=== PATIENT | male | born 1955 | race Caucasian/White ===

== ENCOUNTER → 2016-07-05 | Outpatient (CLI) | payer OTHER ==
[~2016-07-05] MED LIST: ALKA-SELTZER AN1 CAP PO; ALLOPURINOL100 MG PO; AMLODIPINE BES2.5 MG PO; AMLODIPINE BESY10 MG PO; BLOOD PRESSURE; CLONIDINE0.1 MG PO; CLONIDINE0.2 MG PO; DOXYCYCLINE HY100 M3 PO; ECOTRIN ADULT L81 MG PO; ENALAPRIL20 MG PO; FERRATE324 MG PO; FLOMAX0.4 MG PO; HUMALOG100 U/ML SC; INSULIN PUMP; LABETALOL200 MG PO; LASIX40 MG PO; LOPRESSOR25 MG PO; NEURONTIN300 MG PO; NORVASC5 MG PO; PEGASYS180 MCG/ML MR; PHENERGAN25 M1 PO; PHOSLO667 M1 PO; PRILOSEC20 MG PO; RIBASPHERE200 M1 PO; ROFERON-A18 MILLION SC; SOMA PO; SOMA350 MG PO; Synthroid,Levo50 MCG PO; TRAMADOL HCL50 MG PO; TRAZODONE50 MG PO; VICODIN 5/500 505 MG PO; VITAMIN D50000 I3 PO; WELLBUTRIN XL300 MG PO; ZOFRAN ODT8 MG PO
[2016-07-05 10:26] LABS: BASO # 0.1 10*3/uL (0.0-0.1); BASO % 0.4 % (0.0-1.0); EOS # 0.3 10*3/uL (0.0-0.4); EOS % 2.4 % (1.0-4.0); HEMATOCRIT 45.9 % (42.0-52.0); HEMOGLOBIN 15.3 g/dl (14.0-18.0); LYMPH # 0.7 10*3/uL (1.3-4.4); LYMPH % 5.8 % (27.0-41.0); MEAN CELL VOLUME 87.1 fl (80.0-94.0); MEAN CORPUSCULAR HGB CONC 33.3 g/dl (33.0-37.0); MEAN PLATELET VOLUME 11.7 fl (9.6-12.3); MONO # 0.9 10*3/uL (0.1-1.0); MONO % 7.6 % (3.0-9.0); NEUT # 9.4 10*3/uL (2.3-7.9); NEUT % 83.4 % (47.0-73.0); PLATELET COUNT AUTOMATED 220 10*3/uL (130-400); RED BLOOD COUNT 5.27 10*6/uL (4.50-5.90); WHITE BLOOD COUNT 11.3 10*3/uL (4.8-10.8)
[2016-07-05 10:43] LABS: ALBUMIN 3.8 gm/dl (3.1-4.5); BILIRUBIN, TOTAL 0.5 mg/dl (0.2-1.0); PHOSPHOROUS 2.4 mg/dL (2.5-4.9); POTASSIUM 4.6 mmol/L (3.5-5.1); TOTAL PROTEIN 7.7 gm/dL (6.4-8.2)
== END | disposition home or self-care (01) ==
LOC: LAB 10:08
PROVIDERS: Surgery
DX: D50.9 Iron deficiency anemia, unspecified (principal); E83.40 Disorders of magnesium metabolism, unspecified; T86.10 Unspecified complication of kidney transplant; Z94.0 Kidney transplant status; Z79.899 Other long term (current) drug therapy

== ENCOUNTER → 2016-07-20 | Outpatient (CLI) | payer OTHER ==
[2016-07-20 09:32] LABS: BASO # 0.1 10*3/uL (0.0-0.1); BASO % 0.5 % (0.0-1.0); EOS # 0.4 10*3/uL (0.0-0.4); EOS % 3.5 % (1.0-4.0); HEMATOCRIT 47.7 % (42.0-52.0); HEMOGLOBIN 15.6 g/dl (14.0-18.0); LYMPH # 0.6 10*3/uL (1.3-4.4); LYMPH % 6.3 % (27.0-41.0); MEAN CELL VOLUME 89.5 fl (80.0-94.0); MEAN CORPUSCULAR HGB 29.3 pg (27.0-31.0); MEAN CORPUSCULAR HGB CONC 32.7 g/dl (33.0-37.0); MEAN PLATELET VOLUME 11.8 fl (9.6-12.3); MONO # 0.9 10*3/uL (0.1-1.0); MONO % 9.2 % (3.0-9.0); NEUT % 80.1 % (47.0-73.0); PLATELET COUNT AUTOMATED 213 10*3/uL (130-400); RED BLOOD COUNT 5.33 10*6/uL (4.50-5.90); RED CELL DISTRI WIDTH 14.7 % (0-14.5); WHITE BLOOD COUNT 9.9 10*3/uL (4.8-10.8)
[2016-07-20 09:57] LABS: BILIRUBIN, TOTAL 0.5 mg/dl (0.2-1.0); PHOSPHOROUS 2.4 mg/dL (2.5-4.9); POTASSIUM 4.6 mmol/L (3.5-5.1); TOTAL PROTEIN 8.3 gm/dL (6.4-8.2)
== END | disposition home or self-care (01) ==
LOC: LAB 09:02
PROVIDERS: Internal Medicine Nephrology
DX: D59.0 Drug-induced autoimmune hemolytic anemia (principal); E83.40 Disorders of magnesium metabolism, unspecified; T86.10 Unspecified complication of kidney transplant; Z94.0 Kidney transplant status; Z79.899 Other long term (current) drug therapy

== ENCOUNTER → 2016-08-30 | Outpatient (CLI) | payer OTHER ==
[2016-08-30 09:27] LABS: BASO # 0.1 10*3/uL (0.0-0.1); BASO % 0.7 % (0.0-1.0); EOS # 0.4 10*3/uL (0.0-0.4); EOS % 4.4 % (1.0-4.0); HEMATOCRIT 46.2 % (42.0-52.0); HEMOGLOBIN 15.1 g/dl (14.0-18.0); LYMPH % 11.5 % (27.0-41.0); MEAN CELL VOLUME 88.3 fl (80.0-94.0); MEAN CORPUSCULAR HGB 28.9 pg (27.0-31.0); MEAN CORPUSCULAR HGB CONC 32.7 g/dl (33.0-37.0); MONO # 0.8 10*3/uL (0.1-1.0); MONO % 9.2 % (3.0-9.0); NEUT # 6.4 10*3/uL (2.3-7.9); NEUT % 73.9 % (47.0-73.0); PLATELET COUNT AUTOMATED 221 10*3/uL (130-400); RED BLOOD COUNT 5.23 10*6/uL (4.50-5.90); RED CELL DISTRI WIDTH 14.7 % (0-14.5); WHITE BLOOD COUNT 8.7 10*3/uL (4.8-10.8)
[2016-08-30 09:49] LABS: MAGNESIUM 1.9 mg/dL (1.5-2.1); URIC ACID 6.6 mg/dL (3.5-7.2)
[2016-08-30 09:52] LABS: BILIRUBIN, TOTAL 0.4 mg/dl (0.2-1.0); PHOSPHOROUS 3.5 mg/dL (2.5-4.9); TOTAL PROTEIN 7.9 gm/dL (6.4-8.2)
== END | disposition home or self-care (01) ==
LOC: LAB 08:58
PROVIDERS: Surgery
DX: D59.0 Drug-induced autoimmune hemolytic anemia (principal); E83.40 Disorders of magnesium metabolism, unspecified; T86.10 Unspecified complication of kidney transplant; Z94.0 Kidney transplant status; Z79.899 Other long term (current) drug therapy

== ENCOUNTER 2016-10-22 11:04 | Inpatient (IN) | payer OTHER ==
[~2016-10-22] VITALS: Ht 172.7 cm; Wt 73.0 kg
--- NOTE | ~2016-10-22 | CON ---
[place], [place] REPORT OF CONSULTATION NAME: FENG CHEN UNIT #: [id number] ROOM: [facility] DOCTOR: EVAN MAC MD BIRTHDATE: [birth year] DOS: 10/25/2016 REASON FOR CONSULTATION: History of renal transplant, now with pulmonary edema. HISTORY OF PRESENT ILLNESS: The patient is a pleasant 61-year-old gentleman known to our service for longstanding history of end-stage renal disease secondary to diabetes and hypertension. He underwent a renal transplant in 2013 and has been off dialysis, has baseline creatinine in the mid 1, with some fluctuations based on volume status. He has treated his diabetes with an insulin pump and he continues to follow up with [facility] for his transplant care as well as need. He also has a history of hepatitis C, treated with interferon and ribavirin, which was fairly successful and his hypertension has been under fair control in general. I would not say it is actively well controlled all the time. He presented to the hospital on Tuesday after an outpatient echocardiogram had been performed. I suspect for ongoing shortness of breath issues that he had been having. This showed ejection fraction of 70% with grade 2 pseudonormal filling dynamics, but normal LV size. The left atrium was severely dilated as was the right atrium dilated. There was moderate mitral regurgitation noted and mild to moderate tricuspid regurgitation with moderate pulmonary hypertension. No other pericardial effusions were noted. These were compared to an echocardiogram done while inpatient as he had acute onset of worsening shortness of breath again overnight when moved to the ICU. He had been moved earlier in the day for hyperglycemia, essentially resulting from steroid, Solu-Medrol doses for the initial differential of COPD exacerbation versus pneumonia. His steroids have been now since discontinued. In comparing today's echo to the one on Tuesday, the inferior lateral wall appears hypokinetic with an ejection fraction decreased from 70-[address] Pedraza is consulted and the patient did have an elevated troponin level, which seems to have peaked. His pertinent history is significant for history of longstanding tobacco abuse as well as past percutaneous revascularization of PAD. He has some claudications and he has had angiograms, I believe, some balloon angioplasties at [facility]. He has not done bypass surgery; however. His chest radiograph was concerning for multifocal pneumonia versus fluid. He had some pleuritic chest pains with associated hemoptysis and patient is obviously status post kidney transplant and is maintained on immunosuppression with Prograf and CellCept. PAST MEDICAL HISTORY: As above as well as a history of neck and back surgery, fistula placements, knee surgeries. REVIEW OF SYSTEMS: As per the HPI, otherwise all negative. FAMILY HISTORY: Father . Mother is still alive. SOCIAL HISTORY: Denies any active toxic habits as above for past habits. PHYSICAL EXAMINATION: VITAL SIGNS: 141/58, pulse 76, respiratory rate 20, temperature max 98.4, pulse ox 97% on 3 liters nasal cannula. GENERAL: He is awake, alert and oriented. He is without acute distress, [place], [place] REPORT OF CONSULTATION NAME: FENG CHEN UNIT #: [id number] ROOM: [facility] DOCTOR: EVAN MAC MD BIRTHDATE: [birth year] pleasant mood and affect. Speech is clear and cogent. NECK: Supple. He has a midline scar which is fairly well healed. Acceptable range of motion. No JVD or lymphadenopathy. LUNGS: Fairly nonlabored breath sounds. There are bibasilar crackles. No audible egophony or tactile fremitus abnormalities. CARDIOVASCULAR: He has a regular rhythm. No audible rub. No palpable lift or heave. There is a soft systolic murmur at left sternal border, not appreciate any lift or heave or thrill. Abdomen is soft, nontender, nondistended. Allograft is nontender without bogginess. EXTREMITIES: Without cyanosis or edema of significance. Peripheral pulses are decreased. LABORATORY AND DIAGNOSTIC DATA: Urinalysis: Clear yellow urine 1.010, negative protein, trace blood, 21 wbc's, trace bacteria. Urine sodium 76, urine potassium 39, urine chloride 93. Urine creatinine 41. Sodium 136, potassium 4.5, chloride 107, bicarbonate 21, BUN 45, creatinine 1.70 had been up to 1.91 yesterday morning, but was improving with some fluid. Fluids are now turned off because of the issues of shortness of breath. His glucose was 532, then 491 yesterday, is improving, but still 305. Calcium is 9.1, phosphorus 3.8, albumin 3.2. Troponin I peaked at 3.33 this morning at midnight, is 2.84 now. ABG 7.25, pCO2 36, pO2 of 56 overnight. Echocardiogram as mentioned above was reviewed. Microbiology: Sputum from the 9th showed moderate gram-positive cocci in pairs, chains and clusters, few gram-negative and gram-positive rods, normal junior with the culture, some moderate yeast also noted. Blood cultures, no growth to date x 2. ASSESSMENT AND PLAN: End-stage renal disease, status post kidney transplant status, 2014. The patient has immunocompromised state and should be maintained on his immunosuppression if there is a consideration for pneumonia, which I think may be founded; however, from microbiologic standpoint, there is nothing yet identified as a single causative organism. I would consider reducing his immunosuppression by stopping his CellCept for the short acute time period. However, as he has negative cultures at this point and he is tolerating antibiotics, I would continue the current immunosuppression as he has other issues which are taking higher precedence, namely possible non-ST elevation myocardial infarction followed by Cardiology. There is a plan worse stress test in place that is fine. However, if the patient requires cardiac catheterization with intravenous contrast administration, I would recommend transferring him to [facility] where he is followed in continuity by ____ as well as other specialists in a tertiary facility. If there is not a plan for intervention, we can continue to give him periodic Lasix as needed. I just would not want to diurese him in the context of potentially requiring catheter, contrast administration, given some CKD in his kidney transplant. His baseline creatinine is in the mid ones and he is near to this baseline and estimated GFR is 41 for stage 3 chronic kidney disease of that transplanted allograft. Hypertension control is fair, but I would avoid making further adjustments. I would leave those to Cardiology at this point and from my standpoint, further doses of Lasix, perhaps 40 mg IV again may be reasonable. His electrolytes and acid base status showed an acidosis overnight, combined metabolic and respiratory. At this point, he appears well compensated. His insulin, [place], [place] REPORT OF CONSULTATION NAME: FENG CHEN UNIT #: [id number] ROOM: [facility] DOCTOR: BUBBA CROSS,EVAN Naranjo BIRTHDATE: [birth year] subcutaneous pump has been resumed for his diabetes, though those are also not perfectly well controlled. He has anemia. We recommended recheck of his CBC tomorrow and follow up his leukocytosis. Follow up cultures to completion and follow up his Prograf level, though I do think that it was a trough level and may need to be taking with a grain of salt. EVAN MAC MD CM:CONSTR:REPORT OF CONSULTATION 1500 10/25/16 2314 interface
--- NOTE | ~2016-10-22 | PR ---
[place], [place] PROGRESS NOTE NAME: FENG CHEN UNIT #: [id number] ROOM: [facility] DOCTOR: EMA STRICKLAND MD BIRTHDATE: [birth year] DOS: SUBJECTIVE: The patient was seen today at his bedside in the Intensive Care Unit on 10/27/2016. He is feeling better and no longer breathless. He denies any chest discomfort. He did undergo a pharmacologic myocardial stress test this morning. The electrocardiogram obtained just prior to the stress test did show more ST segment depression in the inferior leads as well as some ST elevation in the anterior leads. The perfusion images obtained showed an inferolateral wall myocardial infarction with dania-infarction ischemia. In addition, there was a transient left ventricular cavity dilation post-stress suggesting the presence of multivessel coronary artery disease. Happily, his ejection fraction is preserved at 59%. PHYSICAL EXAMINATION: VITAL SIGNS: Today, his pulse is 60 and regular, blood pressure is 167/55. He is afebrile. NECK: Supple. He has no jugular distention. Carotids are full. LUNGS: Do show decreased breath sounds with a few crackles at the bases. HEART: Has a regular rhythm with an S4 gallop. ABDOMEN: Benign. EXTREMITIES: Showed no edema. LABORATORY DATA: Hemoglobin today is 10.7, white count 10,200. Sodium is 138, potassium 4.4, BUN 33 and creatinine 1.4. I did discuss the patient's findings with Dr. Palma as well as with the patient himself and his family. I think that the stress test does predict a moderate to high risk for future adverse cardiac events. I think that he should be evaluated by catheterization, but this should be done where his transplant team, child care education coordinator, etc. are available along with the solar system designer they are familiar with him. I have therefore recommended that he be transferred to the [facility] for further management. I thank Dr. Palma for asking our advice regarding the patient's care. [place], [place] PROGRESS NOTE NAME: FENG CHEN UNIT #: [id number] ROOM: [facility] DOCTOR: EMA STRICKLAND MD BIRTHDATE: [birth year] EMA STRICKLAND MD CM:ODESSA [id number] EMA STRICKLAND MD 10/27/162236 interface
--- NOTE | ~2016-10-22 | CON ---
[place], [place] REPORT OF CONSULTATION [id number] UNIT #: [id number] ROOM: [facility] DOCTOR: EMA STRICKLAND MD BIRTHDATE: [birth year] DOS: 10/25/2016 REASON FOR CONSULTATION: Chest pain and elevated troponin. HISTORY OF PRESENT ILLNESS: Jay Chen is a 61-year-old man who has had insulin-dependent diabetes mellitus since age 25. He also has a history of cigarette abuse. He has had significant peripheral vascular disease and has had three percutaneous revascularization procedures on his right leg and 7 on his left done by Dr. Mejia at the [facility]. The patient was advised to have peripheral artery bypass surgery, but he has refused thus far. He does admit to claudications at fairly low levels of exertion. The patient denies any previous history of heart disease. He had a kidney transplant in May 2013 and states that he did have several stress tests prior to that all of which were reportedly normal. He has not had one since his kidney transplant, however. The patient was in his normal state of health until approximately 10/20/2016. He noticed an increase in his shortness of breath, which occurred relatively suddenly while at rest. He spoke to his primary physician, Dr. Palma, who recommended an outpatient echocardiogram. The examination was done on 10/22/2016 and showed normal left ventricular size with stage II diastolic dysfunction and moderate aortic stenosis with an estimated valve area of 1.1 cm2. The mean transaortic gradient was 27 mmHg. The patient continued to be short of breath, so he went to the Emergency Room where chest x-ray showed bibasilar pneumonia with a left pleural effusion. He was hospitalized. Had a subsequent chest x-ray showed increasing bilateral multifocal pneumonia. He was treated with antibiotics and has improved. He stated that when he was at his most short of breath, he did have pleuritic chest pains in his upper anterior chest bilaterally. This has since improved. He did have some diaphoresis and feverishness. He denied nausea or vomiting and denied syncope. PAST HISTORY: Includes, 1. Diabetes mellitus since age 25. The patient has been on insulin since that time and does have an insulin pump for sugar control. 2. End-stage renal disease, status post kidney transplant in May of 2013. Prior to that, the patient did undergo dialysis utilizing a left arm AV fistula. 3. History of right pulmonary nodule, which is being followed clinically. 4. Vascular disease, status post bilateral lower extremity percutaneous interventions by Dr. Mejia at [facility]. The patient reports 3 procedures on his right leg and 7 procedures on his left. The last of these was in 2016. 5. Long-term and ongoing cigarette abuse. The patient continues to smoke one-half pack of cigarettes a day. 6. No history of myocardial infarction or stroke. 7. The patient does have hypertension related to his renal insufficiency. 8. History of back surgery. 9. History of surgery on his left arm for shunt placement. [place], [place] REPORT OF CONSULTATION NAME: JAY CHEN UNIT #: [id number] ROOM: [facility] DOCTOR: EMA STRICKLAND MD BIRTHDATE: [birth year] 10. Status post knee surgeries bilaterally. REVIEW OF SYSTEMS: The patient denies diplopia or loss of vision. Denies fevers, chills or sweats at this time, although he did have some feverishness. Prior to admission, he denies any recent weight change. He denies nausea or vomiting. He did have dyspnea and chest pain prior to admission as noted above. He denies any bleeding from any site. He denies orthopnea or PND. He denies any recent peripheral edema. He does admit to claudications at a fairly limited distance, although he would not quantify it for me. He denies any hot, red or swollen joints. He denies any skin rashes. He denies polydipsia, polyuria or heat intolerance. The remainder of the review of systems is negative except as noted above. FAMILY HISTORY: The patient's father at age 75. His mother is alive at age 90. SOCIAL HISTORY: The patient denies any alcohol consumption or illegal drug use. He does smoke one half packs of cigarettes a day. PHYSICAL EXAMINATION: GENERAL: White-nourished white male who is awake, alert and oriented. VITAL SIGNS: Pulse is 77 and regular, blood pressure is 174/65. He is afebrile. He weighs 73 kg and has a body mass index 24.5. HEENT: Normocephalic, atraumatic. Extraocular muscles are intact. Sclerae are clear. Pupils are equal, round and reactive to light. Oral mucosa is moist. Tongue is midline. NECK: Supple. He has no jugular distention. Carotids are full, but he does have soft bilateral bruits. He has no neck or supraclavicular masses. No thyromegaly. RESPIRATORY: Respirations are unlabored at rest. He does have bibasilar crackles. He has no presacral edema or chest wall tenderness. CARDIOVASCULAR: His heart has a regular rhythm. He has a fourth heart sound. I did not hear a third heart sound. There is grade 2/6 systolic ejection murmur along the left sternal border. There are no diastolic murmurs. The second heart sound is well preserved. The PMI is not displaced. There is no precordial heave, lift or thrill. ABDOMEN: Soft and normoactive without masses, organomegaly or bruits. EXTREMITIES: Showed no edema. Peripheral pulses are absent in the feet. LABORATORY DATA: I reviewed his electrocardiogram, which showed sinus tachycardia with nonspecific inferior and lateral ST changes. There are no ST elevations. Review of the patient's troponin levels show that they were normal at the time of admission on 10/22/2016, but have subsequently risen on October 24 was 1.51, then 3.33 and now 2.84. IMPRESSIONS: 1. Elevation in troponin consistent with acute myocardial injury. Given his risk factors, it is likely that this truly does represent a non-ST elevation [place], [place] REPORT OF CONSULTATION NAME: JAY CHEN UNIT #: [id number] ROOM: [facility] DOCTOR: EMA STRICKLAND MD BIRTHDATE: [birth year] myocardial infarction. 2. End-stage renal disease, status post renal transplant. The patient does show evidence of some renal insufficiency with a BUN of 43 and creatinine of 1.66. 3. Type 2 diabetes mellitus, on insulin via pump since age 25. 4. Severe peripheral vascular disease, status post multiple percutaneous interventions, thus far, the patient has refused peripheral bypass surgery. 5. Bilateral carotid bruits. 6. Ongoing cigarette abuse. PLAN: For now, we will repeat a limited echo just for wall motion. His pneumonia will be treated appropriately. We will monitor and manage his medications to improve blood pressure control. Once his pneumonia has been stabilized, we will plan on a risk stratifying pharmacologic stress test. We thank Dr. Palma for asking our advice regarding the patient's care. EMA STRICKLAND MD CM:CONSTR:REPORT OF CONSULTATION 0936 10/25/16 1055 interface
--- NOTE | ~2016-10-22 | CON ---
[place], [place] REPORT OF CONSULTATION NAME: FENG CHEN UNIT #: [id number] ROOM: [facility] DOCTOR: KARTIK RODRÍGUEZ MD BIRTHDATE: [birth year] DOS: 10/24/2016 HISTORY OF PRESENT ILLNESS: This 61-year-old male developed sudden onset of severe shortness of breath with vomiting. He had been initially admitted with bilateral pneumonia and has a history of end-stage renal disease, status post renal transplant and diabetes. Yesterday, ____ was discontinued because of uncontrolled blood sugars. Today, he has had episodic shortness of breath, but this evening, he developed severe shortness of breath with coughing and vomiting. It appeared that he spit up some blood-stained sputum. I was asked to see the patient in an emergency because of acute respiratory distress. PHYSICAL EXAMINATION: VITAL SIGNS: His blood pressure is in the 130/80 range, heart rate 126 and respirations 28 a minute. He had some retractions. He was in the tripod position when I arrived and was having severe difficulty breathing. On examination, severe distress because of shortness of breath. NECK: Veins not distended. CHEST: Symmetrical intercostal recession, bilateral rales with diffuse wheezing on expiration. HEART: Tachycardic. No murmurs or gallops appreciated. ABDOMEN: Flat, soft, nontender, no masses, no organomegaly. EXTREMITIES: Significant wasting peripherally, but no edema. Pulses 0-1 bilaterally. SKIN: Slightly moist. Reviewing the rhythm strip, sinus tachycardia and at the time that I saw him, he was using a Venturi type mask for breathing. I recommended 2 separate DuoNeb aerosol treatments, intravenous ____, a stat chest x-ray and stat chest x-ray showed bilateral infiltrates consistent with acute pulmonary edema. He was in fact very anxious. I was going to give him Ativan IV, but the patient to just had Xanax and Percocet for complaints of anxiety and generalized pain. He denied any chest pain. Initially, chest x-ray was available. I was able to discuss the patient's situation with Dr. Palma, his primary physician, and he agreed that I could give the patient Lasix, nitroglycerin infusion and I recommended BiPAP. BiPAP will be started at 12/6 and titrated accordingly. I did see the blood gases which showed mild hypoxemia and hypercapnia. EKG is pending. Cardiac enzymes are pending. Condition is critical. Dr. Palma is aware and recommended that I consult with Nephrology. The order for consult with Nephrology has been placed. The patient will get morphine 2 mg as necessary. He does have a previous order for that and nitroglycerin started at 5 mcg and will be increased if necessary. He was given Lasix 40 mg IV and did appear to be slightly improved. I will evaluate the patient again in 30 minutes. [place], [place] REPORT OF CONSULTATION NAME: FENG CHEN UNIT #: [id number] ROOM: [facility] DOCTOR: KARTIK RODRÍGUEZ MD BIRTHDATE: [birth year] KARTIK RODRÍGUEZ MD CM:CONSTR:REPORT OF CONSULTATION 32 10/25/16 1619 interface
--- NOTE | ~2016-10-22 | PR ---
[place], [place] PROGRESS NOTE NAME: [id number] UNIT #: [id number] ROOM: [facility] DOCTOR: SHERICE BONE MD BIRTHDATE: [birth year] DOS: 10/24/2016 SUBJECTIVE: The patient has a history of renal transplant with chronic renal failure with pneumonia, had developed very high blood sugar yesterday in the 500s and needed to be transferred to the ICU to put on insulin drip. We had to discontinue his corticoids which we were using for shortness of breath and being observed very carefully in the unit. He has past history of bilateral pneumonia, chest pain, elevated BNP, elevated CK-MB, hypertension, hyponatremia and lymphopenia. The patient is feeling somewhat better today. OBJECTIVE: VITAL SIGNS: His blood pressure is 166/62, pulse is 80, respirations 14, temperature 98. CHEST: Having bilateral rhonchi with crepitation. HEART: Regular. ABDOMEN: Soft. No neurological deficit observed. His potassium level is 4.4, which is normal. Glucose is 532, it is still high and hemoglobin A1c 7.8. SHERICE BONE MD CM:PNTRANS [id number] SHERICE BONE MD 10/25/16 0449 interface
[2016-10-22 11:10] VITALS: BP 158/49
[2016-10-22 11:42] LABS: BASO # 0.1 10*3/uL (0.0-0.1); BASO % 0.4 % (0.0-1.0); EOS # 0.4 10*3/uL (0.0-0.4); EOS % 2.4 % (1.0-4.0); HEMATOCRIT 33.9 % (42.0-52.0); HEMOGLOBIN 11.3 g/dl (14.0-18.0); LYMPH # 0.6 10*3/uL (1.3-4.4); LYMPH % 3.9 % (27.0-41.0); MEAN CELL VOLUME 86.3 fl (80.0-94.0); MEAN CORPUSCULAR HGB 28.8 pg (27.0-31.0); MEAN CORPUSCULAR HGB CONC 33.3 g/dl (33.0-37.0); MEAN PLATELET VOLUME 11.7 fl (9.6-12.3); MONO % 6.5 % (3.0-9.0); NEUT # 12.8 10*3/uL (2.3-7.9); NEUT % 86.2 % (47.0-73.0); PLATELET COUNT AUTOMATED 170 10*3/uL (130-400); RED BLOOD COUNT 3.93 10*6/uL (4.50-5.90); RED CELL DISTRI WIDTH 14.5 % (0-14.5); WHITE BLOOD COUNT 14.8 10*3/uL (4.8-10.8)
[2016-10-22 11:50] LABS: ACT PARTIAL THROMBO TIME 27.2 SECONDS (20.8-31.5)
[2016-10-22 11:57] LABS: ALBUMIN 3.7 gm/dl (3.1-4.5); CKMB 3.7 ng/ml (0.5-3.6); CREATININE 1.71 mg/dL (0.70-1.30); MAGNESIUM 1.9 mg/dL (1.5-2.1); POTASSIUM 4.8 mmol/L (3.5-5.1); TOTAL PROTEIN 7.7 gm/dL (6.4-8.2); TROPONIN I 0.019 ng/ml (<0.045)
[2016-10-22 12:18] VITALS: BP 148/66
--- NOTE | 2016-10-22 12:31 | NUR ---
SALINE INFUSING AT TIME OF ADMISSION.
--- NOTE | 2016-10-22 13:20 | NUR ---
AWAITING RETURN CALL FROM 5E TO PROVIDE ADMISSION REPORT.
--- NOTE | 2016-10-22 13:50 | NUR ---
NURSE REPORT TO 5E, ADMISSION IN PROGRESS.
--- NOTE | 2016-10-22 14:07 | NUR ---
A 61, admitted to , under the services of ALOK Calixto MD with a diagnosis of PNEUMONIA. Chief complaint is WORSENING SOB. Patient arrived via bed from ER. Monitor applied. Initial assessment completed. Vital signs taken and recorded. AOLK CALIXTO MD notified of admission to the unit. Orders received. See assessment for past medical history, medications and allergies. Patient and/or family oriented to unit. [facility] visitation policy reviewed. Clothing/patient valuable form completed. LAKIA RICHARDSON
[2016-10-22 14:50] LABS: CKMB 3.3 ng/ml (0.5-3.6); CPK 142 U/L (39-308)
[2016-10-22 14:51] LABS: TROPONIN I < 0.015 ng/ml (<0.045)
[2016-10-22 16:00] VITALS: BP 169/52
[2016-10-22] MEDS ORDERED: PROGRAF5 MG PO ×2 (16:07)
[2016-10-22] MEDS ORDERED: CELLCEPT500 MG PO (16:08)
[2016-10-22] MEDS ORDERED: ASPIRIN ADULT L81 M2 PO (16:10)
[2016-10-22] MEDS ORDERED: VITAMIN D5000 UNI1 PO (16:11)
[2016-10-22] MEDS ORDERED: PLAVIX75 M1 PO (16:11)
[2016-10-22] MEDS ORDERED: PERCOCET 5-3251 EACH PO (16:12)
--- NOTE | 2016-10-22 16:13 | NUR ---
MED REC UP TO DATE PER PATIENT LIST.
--- NOTE | 2016-10-22 16:49 | NUR ---
DR AKHTAR NOTIFIED OF CONSULT VIA ANSWERING SERVICE.
[2016-10-22 17:50] LABS: CKMB 2.8 ng/ml (0.5-3.6); CPK 137 U/L (39-308); TROPONIN I < 0.015 ng/ml (<0.045)
[2016-10-23] VITALS (8 sets, daily range): BP systolic 151–177; BP diastolic 54–62
--- NOTE | 2016-10-23 01:46 | NUR ---
PATIENT MEDICATED WITH RESTORIL AND NORCO PER PRN ORDER AND PATIENT REQUEST FOR C/O INABILITY TO SLEEP AND NECK/LEG DISCOMFORT. RATED PAIN A 5/10 WITH 10 BEING THE WORST. SEE EMAR. REINFORCED USE OF CALL LIGHT.
[2016-10-23 06:18] LABS: HEMATOCRIT 32.4 % (42.0-52.0); HEMOGLOBIN 10.7 g/dl (14.0-18.0); MEAN CELL VOLUME 86.2 fl (80.0-94.0); MEAN CORPUSCULAR HGB 28.5 pg (27.0-31.0); PLATELET COUNT AUTOMATED 156 10*3/uL (130-400); RED BLOOD COUNT 3.76 10*6/uL (4.50-5.90); RED CELL DISTRI WIDTH 14.6 % (0-14.5); WHITE BLOOD COUNT 17.6 10*3/uL (4.8-10.8)
[2016-10-23 06:38] LABS: ALBUMIN 3.4 gm/dl (3.1-4.5); CREATININE 1.62 mg/dL (0.70-1.30); MAGNESIUM 2.1 mg/dL (1.5-2.1); PHOSPHOROUS 2.7 mg/dL (2.5-4.9); POTASSIUM 4.6 mmol/L (3.5-5.1); TOTAL PROTEIN 7.4 gm/dL (6.4-8.2)
[2016-10-23 06:43] LABS: THYROID STIM HORMONE (HS) 0.724 uIU/ml (0.358-4.75)
[2016-10-23 06:54] LABS: BURR CELLS MODERATE; OVALOCYTES FEW; PLATELET SUFFICIENCY NORMAL (NORMAL); TOTAL CELLS COUNTED 100 #CELLS
[2016-10-23 06:57] LABS: INTERNATIONAL NORM RATIO 1.1 (2.0-3.5)
--- NOTE | 2016-10-23 07:30 | NUR ---
DR BONE IN TO SEE PT.
[2016-10-23 08:01] LABS: VITAMIN D, 25-HYDROXY 37.9 ng/mL (30-100)
--- NOTE | 2016-10-23 08:09 | NUR ---
PT EXTREMELY UPSET & AGITATED BC HIS BS ACCORDING TO HIS INSULIN PUMP IS CLOSE TO 500 & I DO NOT HAVE HIS INSULIN FROM [facility] THAT HE BROUGHT IN. CALLED LANE IN PHARMACY WHO STATES PTS INSULIN IS IN PHARMACY & CANNOT RELEASE IT UNTIL ORDER FOR PUMP IS OBTAINED. PT IS ANGRY & VOICES MUCH DISSATISFACTION. WILL CALL DR & GET ORDER TO USE INSULIN PUMP. SEE SHIFT ASSESSMENT.
--- NOTE | 2016-10-23 09:01 | NUR ---
DISCUSSED AT LENGTH WITH PT HIS AIC & NECESSARY DIETARY CHANGES. PT IS AGGREVATED & STATES "DO NOT CHANGE MY DIET, I HAVE BEEN TAKING CARE OF THIS BY MYSELF FOR YEARS"
[2016-10-23] MEDS ORDERED: BACTRIM 400-801 EACH PO (09:22)
--- NOTE | 2016-10-23 09:34 | NUR ---
PT GIVEN PO XANAX FOR INCREASED ANXIETY ORDERED PER REQUEST. SEE EMAR.
--- NOTE | 2016-10-23 09:41 | NUR ---
DISCUSSED S/S OF HYPOGLYCEMIA, PT VOICES UNDERSTANDING. LANE FROM PHARMACY IN TO SPEAK WITH PT REGARDING USE OF INSULIN PUMP.
--- NOTE | 2016-10-23 11:00 | NUR ---
PT STATES "FEELING MORE RELAXED, LESS ANXIOUS" WILL CONTINUE TO MONITOR.
--- NOTE | 2016-10-23 12:18 | NUR ---
ALL DOCUMENTED BLOOD SUGAR RESULTS ARE FROM PTS INSULIN PUMP & PT COVERS HIMSELF ACCORDINGLY.
--- NOTE | 2016-10-23 15:00 | NUR ---
MEDICATED PO ORDERED PER PT REQUEST WITH NORCO FOR C/O TEMPORAL TATUM. SEE EMAR. PT RATES PAIN 09/23.
--- NOTE | 2016-10-23 15:13 | NUR ---
SPOKE WITH PT & HIS MAY AT LENGTH REGARDING CONTINUED HIGH BLOOD SUGAR RESULTS. THIS RN'S CONCERN IS THE PROBALE ISSUE OF HAVING TO PUT PT ON INSULIN GTT BUT I EXPLAINED TO PT THAT HE CAN NOT SELF ADMINISTER INSULIN VIA INSULIN PUMP IF THIS HAPPENS. PT BECOMES DEFENSIVE STATING HE KNOWS HIS OWN BODY. SPOKE WIRAVI AVENDAÑO, SHIFT DIRECTOR REGRADING MY CONCERNS.
--- NOTE | 2016-10-23 15:26 | NUR ---
MEDICATED PO ORDERED PER PT REQUEST WITH XANAX FOR C/O INCREASED ANXIETY.
--- NOTE | 2016-10-23 15:30 | NUR ---
PT STATES MEDICATION EFFECTIVE IN ALLEVIATING TATUM. WILL CONTINUE TO MONITOR.
--- NOTE | 2016-10-23 15:39 | NUR ---
SPOKE WITH DR BONE REGARDING INCREASED BLOOD SUGAR RESULTS THROUGHOUT THE DAY. ORDERS TO TRANSFER TO ICU FOR INSULIN GTT. PT AGREEABLE, LEFT MESSAGE ON May CELL PHONE.
--- NOTE | 2016-10-23 15:59 | NUR ---
REPORT TO KAYLIE Hussein RN IN ICU.
--- NOTE | 2016-10-23 16:04 | NUR ---
[facility] . stable on arrival .
--- NOTE | 2016-10-23 16:19 | NUR ---
SPUTUM SPECIMEN SENT TO LAB. PATIENT IS WILLING TO DISCONNECT HIS INSULIN PUMP ONCE THE INSULIN DRIP IS STARTED. DISCUSSED THAT THE LAB IS COMING TO DRAW LABS TO VERIFY HIS GLUCOSE LEVEL PRIOR TO STARTING THE DRIP. PATIENT VOICED UNDERSTANDING. DR AKHTAR PAGED TO INFORM HER OF THE TRANSFER & TO MAKE SURE SHE KNOWS THAT DR BOEN IS COVERING FOR DR GONZALES.
--- NOTE | 2016-10-23 17:25 | NUR ---
GLUCOSE WAS CRITICAL HIGH ON OUR MONITOR - PATIENT REFUSED NEEDLE STICK THIS TIME AND CHECKED IT WITH HIS GLUCOMETER WHICH READ 583. DRIP INCREASED TO [address] BONE CALLED AND TOLD WHAT THE LEVELS WERE AND WHERE THE DRIP WAS STARTED. HE AGREED WITH THE HIGHER RATE TO START. TOLD ABOUT THE PATIENT CHECKING THE SUGAR WITH HIS OWN AFTER CRITICAL HIGH AND HE WAS OK WITH THIS. TOLD THAT THE PATIENT WANTED AN ADDITIONAL SQ DOSE. PER DR BONE INCREASE THE DRIP TO 15 UNITS/HR & TO GIVE 20 UNITS SQ INSULIN. RECHECK LEVEL IN 1 HOUR.
--- NOTE | 2016-10-23 17:58 | NUR ---
SQ INSULIN WAS TAKEN TO THE ROOM AND THE PATIENT GAVE IT TO HIMSELF. INSULIN PUMP IS IN A BIO BAG & ON THE PATIENT'S TABLE - DISCUSSED WITH THE PATIENT THAT HE CANNOT GIVE HIMSELF ANY EXTRA INSULIN FROM HIS PUMP. VERY IMPORTANT THAT WE KNOW EXACTLY HOW MUCH IS BEING GIVEN &WE DO NOT WANT TO DROP IT TOO QUICKLY. DINNER ORDERED AND PT VOICED UNDERSTANDING & WILLINGNESS TO CO-OPERATE.
--- NOTE | 2016-10-23 21:00 | NUR ---
PATIENT STATED HIS MED REQ WAS NOT CORRECT. BUT WAS UNABLE TO TELL ME THE OTHER NAMES OF THE MEDS HE WASNT GETTING.
--- NOTE | 2016-10-23 21:45 | NUR ---
PATIENTS BS IS 125, PATIENT DEMANDED I TURN OFF INSULIN DRIP, AND GET HIM A SNACK.
[2016-10-24] VITALS (15 sets, daily range): BP systolic 136–228; BP diastolic 52–92
--- NOTE | 2016-10-24 00:52 | NUR ---
PATIENT STATED HE WANTED A SLEEPING PILL, RESTORIL WAS GIVEN. WILL REASSESS.
--- NOTE | 2016-10-24 00:54 | NUR ---
PATIENT STATED IT WAS TIME FOR HIS PAIN PILL. NORCO WAS GIVEN. WILL REASSESS.
--- NOTE | 2016-10-24 00:56 | NUR ---
PATIENT DEMANDED HE PUT BACK ON INSULIN PUMP. AND THAT I CHECK HIS BS AT 3AM.
--- NOTE | 2016-10-24 03:24 | NUR ---
PATIENT CALLED OUT, STATED HE HASNT SLEPT, FEELING ANXIOUS AND SHORT OF BREATH. CHECKED BS 438, INSULIN DRIP RESTARTED. INSULIN PUMP OFF. PLACED O2, CALLED FOR BREATHING TX, AND GAVE PATIENT A XANAX. WILL CONTINUE TO MONITOR.
--- NOTE | 2016-10-24 04:25 | NUR ---
PATIENT STATED HIS SHORTNESS OF BREATH HAS IMPROVED. AND THAT THE XANAX IS HELPING.
[2016-10-24] MEDS ORDERED: CLONIDINE0.3 MG PO (07:26)
[2016-10-24 07:29] LABS: CREATININE 1.91 mg/dL (0.70-1.30); POTASSIUM 4.4 mmol/L (3.5-5.1)
--- NOTE | 2016-10-24 07:30 | NUR ---
MED REC UPDATED & MED ADDED THAT WAS SKIPPED. ORDER TO RESTART MISSING MED OBTAINED
--- NOTE | 2016-10-24 10:00 | NUR ---
RESTING WITH EYES CLOSED - BANDANA OVER EYES - INSULIN SRIP INFUSING
--- NOTE | 2016-10-24 10:50 | NUR ---
PERCOCET & XANAX GIVEN FOR GENERALIZED DISCOMFORT. BLOOD GLUCOSE REMAIN STEADY <200. INSULIN DRIP IS NOW AT 4 UNITS/HR
[2016-10-24 13:06] LABS: CREATININE 1.66 mg/dL (0.70-1.30); POTASSIUM 4.8 mmol/L (3.5-5.1)
--- NOTE | 2016-10-24 16:30 | NUR ---
PT CALLED NURSE INTO THE ROOM REQUESTING THE SUGAR BE CHECKED. HE WANTS US TO CHECK CONCERNED THAT HIS IS NOT CALIBRated correctly now. Critical high so reflux ordered.
--- NOTE | 2016-10-24 19:22 | NUR ---
Shift chart check completed.24 HR chart check completed.
[2016-10-24 20:18] LABS: ABG BASE EXCESS -10.8 mmol/L (-2.0-2.0); ABG HCO3 15.4 mmol/l (22-26); ABG O2 SATURATION 83.2 % (95-97); ARTERIAL BLOOD GAS PCO2 36.3 mmHg (35-45); ARTERIAL BLOOD GAS PH 7.249 (7.35-7.45); ARTERIAL BLOOD GAS PO2 55.8 mmHg (80-90)
--- NOTE | 2016-10-24 20:30 | NUR ---
AT SHIFT CHANGE PATIENT WAS SITTING AT THE SIDE OF THE BED. RESPIRATORY THERAPY CAME TO ME AND SAID PT WAS ANXIOUS AND HAVING A HARD TIME BREATHING. WHEN I ENTERED THE ROOM PT WAS EXPECTORATING PINK FROTHY SPUTUM. I ATTEMPTED TO GIVE HIM THE PERCOCET AND XANAX THAT HE HAD WANTED BEFORE MY SHIFT BUT HE COULDN'T CATCH HIS BREATH ENOUGH TO TAKE THEM. A RAPID RESPONSE WAS CALLED AND PT WAS GIVEN. ABG'S WERE DONE. PT GIVEN ZOFRAN, MORPHINE AND LASIX DURING THE RAPID RESPONSE. STAT CXR WAS DONE. DR CUEVAS SPOKE WITH DR GONZALES ABOUT THE PT. SEE ALL APPROPRIATE INTERVENTIONS.
--- NOTE | 2016-10-24 21:02 | NUR ---
[facility] ANSWERING SERVICE NOTIFIED OF CONSULTATION.
--- NOTE | 2016-10-24 21:10 | NUR ---
DR KIM CALLED BACK, UPDATED ON PT'S CONDITION. ORDERS RECEIVED.
--- NOTE | 2016-10-24 21:10 | NUR ---
DR KIM WAS MADE AWARE OF TROPONIN LEVEL WHEN I SPOKE WITH HIM ABOUT THE CONSULT.
--- NOTE | 2016-10-24 21:19 | NUR ---
[facility] NOTIFIED OF CONSULTATION. PT'S HAS ARRIVED AND UPDATED ON PT'S CONDITION. PT IS BREATHING EASIER, ON BIPAP AT THIS TIME. NITROGLYCERINE DRIP AT 5MCG/MIN. HAS VOIDED 250ML OF URINE SINCE THE EARLIER LASIX AND MORPHINE. HE WAS ON THE COMMODE FOR A BM ALSO.
--- NOTE | 2016-10-24 23:32 | NUR ---
FIO2 TITRATED BY RESPIRATORY TO 50%. HE'S RESTING WITH HIS EYES CLOSED AT LONG PERIODS. HR IN THE 70'S. HE'S DIURESED >1000 ML SINCE THE EARLIER LASIX.
[2016-10-25] VITALS (13 sets, daily range): BP systolic 137–174; BP diastolic 50–65
--- NOTE | 2016-10-25 00:44 | NUR ---
DR KIM NOTIFIED OF CRITICAL VALUE TROPONIN 3.33. UPDATED HIM ON PT CONDITION. NO NEW ORDERS.
--- NOTE | 2016-10-25 03:43 | NUR ---
PT HAS BEEN SLEEPING AT LONG INTERVALS. NO DYSRHYTHMIAS. HAS BEEN UP TO BSC. FIO2 HAS BEEN TITRATED DOWN TO 40%.
--- NOTE | 2016-10-25 06:11 | NUR ---
PT AWAKE FOR LABS, AND MEDS. BIPAP OFF FOR DRINK OF WATER. NITRO DRIP CONTINUES AT 10MCG/MIN. BIPAP 12/6 AND 40%FIO2. DENIES DISCOMFORT.
--- NOTE | 2016-10-25 06:32 | NUR ---
TROPONIN 2.84. THIS IS TRENDING DOWN AND WHEN I HAD NOTIFIED DR KIM OF HIS EARLIER TROPONIN HE TOLD ME NOT TO CALL HIM WITH THIS TROPONIN IF IT WAS ELEVATED, UNLESS THE PATIENT HAD ANOTHER CHANGE IN HIS CONDITION.
--- NOTE | 2016-10-25 08:30 | NUR ---
Respiratory Therapy Director in to talk to patient. Patient states lives at HOME [address] with HIS . There are 0 steps in the home. Physician: DR GONZALES Pharmacy: [facility] Home health services: NONE Patient's level of ADLs: MINIMAL ASSIST Patient has working utilities: YES DME: OCC CANE, INSULIN PUMP Follow-up physician's appointment after d/c: PREFERS TO MAKE HIS OWN APPT Does patient want to access PORTAL?: Discharge plan HOME. CUATE WADDELL
--- NOTE | 2016-10-25 09:00 | NUR ---
DR STRICKLAND IN TO SEE PT. UPDATED HIM ON PT'S CONDITIO AND PLAN OF CARE. DR STRICKLAND SPOKE TO PT AT LENGTH R/T HIS HAVING AN TN LAST NIGHT AND PLAN OF CARE REGARDING TN. PT'S QUESTIONS ANSWERED.
--- NOTE | 2016-10-25 09:15 | NUR ---
DR MAC CALLED IN REGARDING PT. NEW ORDERS RECEIVED.
--- NOTE | 2016-10-25 09:20 | NUR ---
MEDICATED PT PER PRN ORDER WITH XANAX FOR C/O ANXIETY AND PERCOCET FOR C/O "GENERALIZED PAIN THAT RATES A 6 ON 1-10 PAIN SCALE.
--- NOTE | 2016-10-25 09:55 | NUR ---
PT RESTING. EARLIER PERCOCET AND XANAX EFFECTIVE.
--- NOTE | 2016-10-25 10:00 | NUR ---
NITRO GTT HAS BEEN TITRATED OFF PER ORDER.
[2016-10-25 10:10] LABS: ALBUMIN 3.2 gm/dl (3.1-4.5); CREATININE 1.7 mg/dL (0.70-1.30); PHOSPHOROUS 3.8 mg/dL (2.5-4.9); POTASSIUM 4.5 mmol/L (3.5-5.1)
[2016-10-25 10:24] LABS: BILIRUBIN NEGATIVE (NEGATIVE); BLOOD TRACE-INTACT (NEGATIVE); CLARITY CLEAR (CLEAR); COLOR YELLOW (YELLOW); GLUCOSE 1+ (NEGATIVE); KETONE NEGATIVE (NEGATIVE); LEUKO ESTERASE TRACE (NEGATIVE); NITRITE NEGATIVE (NEGATIVE); PH 5.5 (5.0-9.0); UROBILINOGEN 0.2 E.U./dl (0.2-1.0)
[2016-10-25 10:36] LABS: WBC 21-30 wbc/hpf (0-5)
[2016-10-25 10:37] LABS: BACTERIA TRACE
--- NOTE | 2016-10-25 12:20 | NUR ---
DR BRIONES IN TO SEE PT. UPDATED HIM ON PT'S PLAN OF CARE.
--- NOTE | 2016-10-25 13:22 | NUR ---
PT'S BEDGLU >450. PT REFUSED 2ND STICK R/T HE USED HIS OWN GLUCOMETER AND IT READ 476. HIS INSULIN PUMP WILL GIVE HIM 11 UNITS OF INSULIN. STAT REFLEX ORDERED.
[2016-10-25 14:11] LABS: LEGIONELLA URINARY ANTIGEN Negative (Negative)
--- NOTE | 2016-10-25 14:40 | NUR ---
DR MAC IN TO SEE PT. NEW ORDERS RECEIVED.
--- NOTE | 2016-10-25 15:00 | NUR ---
NOTIFIED PT OF REFLEX RESULT OF 418. HE STATED HE NEEDS AN EXTRA SHOT OF INSULIN TO COVER THE GLUCOSE LEVEL. HIS PUMP HAD ALREADY GIVEN HIM 11 UNITS FOR THE 476 RESULT THAT THE PT HAD TAKEN ON HIS OWN GLUCOMETER AFTER MY GLUCOMETER READ TOO HIGH. I SPOKE WITH DR Francine ARAYA WHO IS COVERING FOR DR GONZALES AND UPDATED HIM ON THE GLUCOSE RESULTS AND PREVIOUS INTERVENTIONS. DR Francine ARAYA ORDERED PT COULD GIVE HIS OWN INJECTION OF HUMULIN R. PT GAVE HIMSELF 20 UNITS OF HUMULIN R INSULIN. WILL RECHECK GLUCOSE IN 1 HOUR.
--- NOTE | 2016-10-25 18:05 | NUR ---
MEDICATED PT PER PRN ORDER WITH XANAX FOR C/O ANXIETY AND PERCOCET FOR C/O GENERALIZED PAIN THAT RATES A 6 ON PAIN SCALE 1-10.
--- NOTE | 2016-10-25 19:00 | NUR ---
PT STATES RELIEF OF EARLIER AXIETY AND PAIN WITH EARLIER PRN MEDS.
--- NOTE | 2016-10-25 21:47 | NUR ---
CAPILLARY BLOOD SUGAR 150. NO COVERAGE NEEDED PER PATIENT.
--- NOTE | 2016-10-25 22:14 | NUR ---
24 HR chart check completed.
--- NOTE | 2016-10-25 23:53 | NUR ---
pt refused to wear bipap at this time
[2016-10-26] VITALS: BP 133/73
[2016-10-26 04:00] VITALS: BP 160/49
[2016-10-26 05:51] LABS: ALBUMIN 2.9 gm/dl (3.1-4.5); CREATININE 1.51 mg/dL (0.70-1.30); PHOSPHOROUS 3.2 mg/dL (2.5-4.9); POTASSIUM 4.1 mmol/L (3.5-5.1); TOTAL PROTEIN 6.5 gm/dL (6.4-8.2)
[2016-10-26 05:57] LABS: BASO % 0.1 % (0.0-1.0); EOS % 0.2 % (1.0-4.0); HEMATOCRIT 30.9 % (42.0-52.0); HEMOGLOBIN 10.3 g/dl (14.0-18.0); LYMPH # 0.7 10*3/uL (1.3-4.4); LYMPH % 4.7 % (27.0-41.0); MEAN CELL VOLUME 85.8 fl (80.0-94.0); MEAN CORPUSCULAR HGB 28.6 pg (27.0-31.0); MEAN CORPUSCULAR HGB CONC 33.3 g/dl (33.0-37.0); MEAN PLATELET VOLUME 12.6 fl (9.6-12.3); MONO % 7.2 % (3.0-9.0); NEUT # 12.5 10*3/uL (2.3-7.9); NEUT % 87.1 % (47.0-73.0); PLATELET COUNT AUTOMATED 172 10*3/uL (130-400); RED CELL DISTRI WIDTH 14.7 % (0-14.5); WHITE BLOOD COUNT 14.4 10*3/uL (4.8-10.8)
[2016-10-26 08:00] VITALS: BP 172/61
--- NOTE | 2016-10-26 09:00 | NUR ---
DISCUSSED HOME MEDS WITH PT.
--- NOTE | 2016-10-26 09:00 | NUR ---
DR CAST IN TO SEE PT. NEW ORDERS RECEIVED.
--- NOTE | 2016-10-26 09:29 | NUR ---
MEDICATED PT PER PRN ORDER WITH CEPACOL FOR C/O SORE THROAT.
--- NOTE | 2016-10-26 09:49 | NUR ---
MEDICATED PT PER PRN ORDER WITH PERCOCET FOR C/O "GENERALIZED" PAIN THAT RATES A 6 ON 1-10 PAIN SCALE. MEDICATED PT WITH XANAX PER PRN ORDER FOR PT'S C/O ANXIETY.
--- NOTE | 2016-10-26 10:25 | NUR ---
PT STATES RELIEF OF PAIN WITH EARLIER CEPACOL.
--- NOTE | 2016-10-26 11:55 | NUR ---
DR GONZALES IN TO SEE PT.
[2016-10-26 12:00] VITALS: BP 140/62
--- NOTE | 2016-10-26 14:16 | NUR ---
DR CONTRERAS IN TO SEE PT.
--- NOTE | 2016-10-26 14:24 | NUR ---
DR CONTRERAS VOICED TO ME PT'S FAMILY'S CONCERNS R/T STRESS TEST. I SPOKE WIHT PT AND HE AGREES WITH STRESS TEST AND DOES NOT WANT ME TO CALL DR GONZALES WITH ANY OF HIS SISTER'S CONCERNS.
--- NOTE | 2016-10-26 14:26 | NUR ---
NOTIFIED BEENA,FROM DR CAST'S OFFICE THAT DR GONZALES WILL DO PT'S STRESS TEST IN THE AM.
[2016-10-26 16:00] VITALS: BP 146/50
--- NOTE | 2016-10-26 18:12 | NUR ---
PT UP TO CHAIR.
[2016-10-26 20:00] VITALS: BP 128/46
--- NOTE | 2016-10-26 20:50 | NUR ---
PT. RESTING IN CHAIR, FAMILY AT BEDSIDE. HEP LOCK IN RA ASYMPT. LUNGS HAVE CRACKLES IN THE BASES. ABDOMEN SOFT, NONDISTENDED AND NORMO. NO PERIPHERAL EDEMA NOTED. AV FISTULA NOTED IN LA. RESP. EASY AD REG NO DISTRESS. ZOEY CLOUD RN
--- NOTE | 2016-10-26 22:22 | NUR ---
PT'S BEDSIDE GLUC 61, PT. REMAINS ASYMPT. GIVEN BOXED LUNCH, CRACKERS W PEANUT BUTTER AND OJ. ZOEY CLOUD RN
[2016-10-27] VITALS (8 sets, daily range): BP systolic 128–167; BP diastolic 43–60
--- NOTE | 2016-10-27 00:14 | NUR ---
PT. GIVEN RESTORIL ORDERED ALONG WITH PERCOSET AND XANAX PER PT REQUEST. STATED PERCOET AND XANAX WERE EFFECTIVE. AND WAS GETTING TIRED, RESTORIL EFFECTIVE. BEDSIDE GLUC CURRENTLY 72. OJ, CRACKERS AND PB GIVEN. ZOEY CLOUD RN
[2016-10-27 05:01] LABS: BASO % 0.2 % (0.0-1.0); EOS # 0.5 10*3/uL (0.0-0.4); EOS % 4.4 % (1.0-4.0); HEMATOCRIT 32.1 % (42.0-52.0); HEMOGLOBIN 10.7 g/dl (14.0-18.0); LYMPH # 0.8 10*3/uL (1.3-4.4); LYMPH % 8.2 % (27.0-41.0); MEAN CELL VOLUME 87.2 fl (80.0-94.0); MEAN CORPUSCULAR HGB 29.1 pg (27.0-31.0); MEAN CORPUSCULAR HGB CONC 33.3 g/dl (33.0-37.0); MEAN PLATELET VOLUME 11.5 fl (9.6-12.3); MONO # 0.9 10*3/uL (0.1-1.0); NEUT # 7.9 10*3/uL (2.3-7.9); NEUT % 77.5 % (47.0-73.0); PLATELET COUNT AUTOMATED 190 10*3/uL (130-400); RED BLOOD COUNT 3.68 10*6/uL (4.50-5.90); RED CELL DISTRI WIDTH 14.8 % (0-14.5); WHITE BLOOD COUNT 10.2 10*3/uL (4.8-10.8)
[2016-10-27 05:34] LABS: ALBUMIN 2.7 gm/dl (3.1-4.5); BUN 33 mg/dl (7-24); CHLORIDE 105 mmol/L (98-107); MAGNESIUM 1.8 mg/dL (1.5-2.1); POTASSIUM 4.4 mmol/L (3.5-5.1); SGOT/AST 12 IU/L (3-35); SODIUM 138 mmol/L (136-145)
[2016-10-27 05:36] LABS: ALKALINE PHOSPHATASE 70 U/L (45-117); SGPT/ALT 16 U/L (12-78); TOTAL PROTEIN 6.5 gm/dL (6.4-8.2)
--- NOTE | 2016-10-27 09:30 | NUR ---
TAKEN DOWN TO CARDIAC REHAB FOR STRESS TEST.
--- NOTE | 2016-10-27 10:30 | NUR ---
INFORMED CONSENT OBTAINED FOR LEXISCAN NUCLEAR STRESS TEST WITH DR. GONZALES. RESTING EKG SINUS JACKY WITH A RESTING HR OF 57 WITH BP OF 128/52. PRE TESTING EKG SHOWS ST DOWNSLOPING IN LEADS II,III,AVF AND ST ELEVATION IN V1-V4. DR. GONZALES HERE AND DR. STRICKLAND SENT ER EKG AND PRE STRESS EKG AND TO CONTINUE WITH LEXISCAN STRESS TEST. LUNGS CLEAR WITH SPO2 OF 98% ON ROOM AIR. PT COMPLETED A 1:00 LEXISCAN PROTOCOL RECEIVING LEXISCAN 0.4 MG IV OVER 10 SECONDS. DENIES ANY CHEST DISCOMFORT. C/O FEELING "ANXIOUS" AND SHORT OF BREATH THAT WAS RELIEVED IN RECOVERY. EKG NONDIAGNOSTIC WITH NO CHANGE FROM BASELINE. PEAK HR OF 78 WITH BP OF 118/44. LAST RECOVERY HR OF 75 WITH BP OF 122/48. AWAITING SCANNING IN STABLE CONDITION.
--- NOTE | 2016-10-27 14:00 | NUR ---
DR. STRICKLAND HERE TO SEE PATIENT. STRESS TEST POSITIVE. HE SPOKE WITH DR. GONZALES AND THEY ARE ARRANGING TRANSFER TO [facility] FOR HEART CATH. DEMOGRAPHICS FAXED TO [facility]. FAMILY HERE IN ROOM.
--- NOTE | 2016-10-27 18:15 | NUR ---
SECURITY ATTENDANT CALLED [facility] AND THEY STILL HAVE NO BED AVAILABLE.
--- NOTE | 2016-10-27 19:40 | NUR ---
CHART CHECK COMPLETED.
--- NOTE | 2016-10-27 21:33 | NUR ---
PT BACK TO BED FROM CHAIR. SNACK GIVEN PER REQUEST WELL XANAX (FOR RELAXATION), PERCOCET (GENERALIZED ACHES), AND RESTORIL (FOR SLEEP).
--- NOTE | 2016-10-27 22:21 | NUR ---
MANAGER LICENSING, ABILIO, CALLS [facility] AND SPEAKS TO [place] RE: BED AVAILABILTY AT THIS TIME. NO BEDS AVAILABLE UNTIL MORNING OR CLOSER TO MORNING.
[2016-10-28] VITALS: BP 155/47
[2016-10-28 04:00] VITALS: BP 143/55
--- NOTE | 2016-10-28 04:05 | NUR ---
0000 RESTING IN BED WATCHING TV. HEPLOCK INTACT. DENIES C/O'S PAIN OR DISCOMFORT AT PRESENT TIME. PULSE OX 100% WITH 02 INTACT. [id number] RESTING IN BED WITH EYES CLOSED. APPEARS TO BE SLEEPING.NO DISTRESS NOTED.
--- NOTE | 2016-10-28 06:09 | NUR ---
REMAINS SLEEPING WITHOUT DISTRESS. CONDITION GUARDED,
--- NOTE | 2016-10-28 06:48 | NUR ---
[facility] CALLED.BED AVAILABLE.PT INFORMED.
--- NOTE | 2016-10-28 08:00 | NUR ---
DISCHARGED TO [facility] VIA [facility]. REPORT CALLED TO ALICJA.
== END 2016-10-28 08:25 | disposition short-term general hospital (02) | DRG 871 ==
LOC: ED 11:04 → ICCU 12:42 → EDHOLD 12:42 → 5E 13:28 → ICCU 10-23 16:32
PROVIDERS: Emergency Medicine; Family Medicine; Internal Medicine; Internal Medicine Nephrology; ADMIT Internal Medicine
PROC: 4A02XM4 Measurement of Cardiac Total Activity, External Approach (ICD-10-PCS; principal; 2016-10-27)
PROC: 3E073KZ Introduction of Other Diagnostic Substance into Coronary Artery, Percutaneous Approach (ICD-10-PCS; principal; 2016-10-27)
DX: A41.9 Sepsis, unspecified organism (principal); I21.4 Non-ST elevation (NSTEMI) myocardial infarction; N18.6 End stage renal disease; E11.22 Type 2 diabetes mellitus with diabetic chronic kidney disease; I12.0 Hypertensive chronic kidney disease with stage 5 chronic kidney disease or end stage renal disease; J18.1 Lobar pneumonia, unspecified organism; E87.1 Hypo-osmolality and hyponatremia; Z94.0 Kidney transplant status; F17.210 Nicotine dependence, cigarettes, uncomplicated; D72.810 Lymphocytopenia; D64.9 Anemia, unspecified; R91.1 Solitary pulmonary nodule; I25.10 Atherosclerotic heart disease of native coronary artery without angina pectoris; Z79.899 Other long term (current) drug therapy; Z98.62 Peripheral vascular angioplasty status; Z82.49 Family history of ischemic heart disease and other diseases of the circulatory system; Z80.9 Family history of malignant neoplasm, unspecified; Z79.82 Long term (current) use of aspirin; Z79.4 Long term (current) use of insulin; Z87.01 Personal history of pneumonia (recurrent); Z71.6 Tobacco abuse counseling; E11.51 Type 2 diabetes mellitus with diabetic peripheral angiopathy without gangrene

== ENCOUNTER → 2016-11-05 | Outpatient (CLI) | payer OTHER ==
[~2016-11-05] MED LIST changes: +ASPIRIN ADULT L81 M2 PO; +BACTRIM 400-801 EACH PO; +CELLCEPT500 MG PO; +CLONIDINE0.3 MG PO; +PERCOCET 5-3251 EACH PO; +PLAVIX75 M1 PO; +PROGRAF5 MG PO; +VITAMIN D5000 UNI1 PO
== END | disposition home or self-care (01) ==
LOC: RAD 11:18
DX: J90 Pleural effusion, not elsewhere classified (principal); E11.9 Type 2 diabetes mellitus without complications; I25.10 Atherosclerotic heart disease of native coronary artery without angina pectoris; R91.8 Other nonspecific abnormal finding of lung field; J18.1 Lobar pneumonia, unspecified organism; Z87.891 Personal history of nicotine dependence

== ENCOUNTER → 2016-11-12 | Outpatient (CLI) | payer OTHER | END | disposition home or self-care (01) | LOC: RAD 10:22 | DX: J98.11 Atelectasis (principal); I10 Essential (primary) hypertension; E11.9 Type 2 diabetes mellitus without complications ==

== ENCOUNTER → 2017-01-28 | Outpatient (CLI) | payer OTHER | END | disposition home or self-care (01) | LOC: RAD 16:02 | DX: J84.10 Pulmonary fibrosis, unspecified (principal); I10 Essential (primary) hypertension ==

== ENCOUNTER → 2017-02-16 | Outpatient (CLI) | payer OTHER | END | disposition home or self-care (01) | LOC: CARD 09:30 | DX: I08.3 Combined rheumatic disorders of mitral, aortic and tricuspid valves (principal) ==

== ENCOUNTER → 2017-04-13 | Outpatient (CLI) | payer OTHER ==
[2017-04-13 08:58] LABS: BASO # 0.1 10*3/uL (0.0-0.1); BASO % 0.9 % (0.0-1.0); EOS # 0.4 10*3/uL (0.0-0.4); EOS % 4.6 % (1.0-4.0); HEMATOCRIT 40.9 % (42.0-52.0); HEMOGLOBIN 12.9 g/dl (14.0-18.0); LYMPH # 0.9 10*3/uL (1.3-4.4); LYMPH % 9.4 % (27.0-41.0); MEAN CELL VOLUME 86.3 fl (80.0-94.0); MEAN CORPUSCULAR HGB 27.2 pg (27.0-31.0); MEAN CORPUSCULAR HGB CONC 31.5 g/dl (33.0-37.0); MEAN PLATELET VOLUME 12.3 fl (9.6-12.3); MONO # 0.9 10*3/uL (0.1-1.0); MONO % 9.6 % (3.0-9.0); NEUT # 7.2 10*3/uL (2.3-7.9); PLATELET COUNT AUTOMATED 229 10*3/uL (130-400); RED BLOOD COUNT 4.74 10*6/uL (4.50-5.90); RED CELL DISTRI WIDTH 14.1 % (0-14.5); WHITE BLOOD COUNT 9.6 10*3/uL (4.8-10.8)
[2017-04-13 09:29] LABS: CREATININE 2.6 mg/dL (0.70-1.30); POTASSIUM 5.1 mmol/L (3.5-5.1); TOTAL PROTEIN 7.9 gm/dL (6.4-8.2); URIC ACID 6.8 mg/dL (3.5-7.2)
== END | disposition home or self-care (01) ==
LOC: LAB 08:41
PROVIDERS: Internal Medicine Nephrology
DX: I15.1 Hypertension secondary to other renal disorders (principal); D89.9 Disorder involving the immune mechanism, unspecified; E83.39 Other disorders of phosphorus metabolism; E83.40 Disorders of magnesium metabolism, unspecified; D63.1 Anemia in chronic kidney disease; T86.10 Unspecified complication of kidney transplant; Z94.0 Kidney transplant status

== ENCOUNTER → 2017-06-22 | Outpatient (CLI) | payer OTHER ==
[~2017-06-22] MED LIST changes: +LIPITOR10 MG PO; +SENNA LAX8.6 M1 PO
== END | disposition home or self-care (01) ==
LOC: RAD 14:04
DX: R06.02 Shortness of breath (principal)

== ENCOUNTER 2017-06-24 07:43 | Inpatient (IN) | payer OTHER ==
[~2017-06-24] VITALS: Ht 177.8 cm; Wt 76.3 kg
--- NOTE | ~2017-06-24 | PR ---
[place], [place] PROGRESS NOTE NAME: FENG CHEN [facility] #: [id number] UNIT #: [id number] ROOM: 411 DOCTOR: EMA STRICKLAND MD BIRTHDATE: [birth year] DOS: 06/27/2017 SUBJECTIVE: The patient was seen today at his bedside, 06/27/2017, for followup of his valvular heart disease with severe aortic stenosis. The patient tells me he feels well. He still does fatigue easily, but I believe that this is due to his severe aortic stenosis. He denies any fevers or chills. He was evaluated by the infectious disease service and they believe that his pneumonia has been cleared. In addition, he did have a carotid ultrasound study on 06/24/2017 which showed less than 50% stenoses bilaterally. He also had an echocardiogram done 06/24/2017 which showed an ejection fraction between 45% and 50% and grade 3 diastolic dysfunction. Aortic valve area was 0.7 cm2 with a maximum pressure gradient of 56 mmHg and mean gradient of 35 mmHg. VTI ratio 0.24. PHYSICAL EXAMINATION: VITAL SIGNS: Today, his pulse is 69 and regular, blood pressure is 164/54. He is afebrile. He weighs 76.3 kilograms. NECK: Supple. He has no jugular distention. Carotids are full. LUNGS: Respirations are unlabored. His chest is clear to auscultation and percussion. HEART: Has a regular rhythm with a grade 4/6 late peaking systolic ejection murmur along the left sternal border. The second heart sound is obscured. There is no precordial heave, lift or thrill. ABDOMEN: Soft and normally active. EXTREMITIES: Without edema. LABORATORY DATA: Hemoglobin is 9.5, white count 11,900, platelet count 233,000. Sodium 136, potassium 5.0, BUN 38, creatinine 1.89. IMPRESSION: 1. Symptomatic severe aortic stenosis. 2. Chronic renal failure, status post kidney transplant. 3. History of hypertension. 4. Mild left ventricular dysfunction with ejection fraction 45-50%. PLAN: The patient may be discharged to home today from a cardiac perspective. He should follow up with his lining scrubber at the [facility] where he is already scheduled to have a transaortic valve replacement of the aortic valve. We will remain available to see the patient as needed and we thank Dr. Palma for asking our advice regarding the patient's care. [place], [place] PROGRESS NOTE NAME: FENG CHEN UNIT #: [id number] ROOM: 411 DOCTOR: EMA STRICKLAND MD BIRTHDATE: [birth year] EMA STRICKLAND MD CM:PNTRANS [id number] EMA STRICKLAND MD 06/27/17 1116 interface
--- NOTE | ~2017-06-24 | PR ---
[place], [place] PROGRESS NOTE NAME: FENG CHEN UNIT #: [id number] ROOM: 411 DOCTOR: YORDAN CROSS,KATLYN BIRTHDATE: [birth year] DOS: 06/25/2017 REASON FOR VISIT: Chest pain and valvular heart disease. HISTORY OF PRESENT ILLNESS: The patient is feeling better. Denies any chest pain. His breathing is much better. No fever, no chills, no PND or orthopnea. REVIEW OF SYSTEMS: Review of the 8 systems negative except as mentioned above. RHYTHM STRIPS: The patient in sinus rhythm. PHYSICAL EXAMINATION: VITAL SIGNS: Blood pressure 150/60, pulse 82, respiratory rate was 18. GENERAL: Alert, comfortable, in no acute distress. HEENT: Pupils are round and equal. No jaundice. NECK: Supple, no distended neck veins, no carotid bruit. CHEST: Symmetrical, nontender. LUNGS: A few scattered rhonchi. HEART: Regular rhythm, no S3, grade 2/6 systolic murmur at the left sternal border. No palpable thrills. ABDOMEN: Benign, nontender. Bowel sounds normal. EXTREMITIES: Showed trace edema. Distal pulses palpable. SKIN: Warm and dry. No cyanosis, no clubbing. NEUROLOGIC: The patient is alert, oriented. No focal neurologic deficit. RECTAL: Deferred. GENITOURINARY: Deferred. MEDICATIONS AND LABS: Reviewed. Hemoglobin 9.8. Creatinine 1.95. IMPRESSION: 1. Chest pain, atypical. 2. Pneumonia. 3. Severe aortic stenosis. 4. Peripheral vascular disease status post . 5. Mild mitral regurgitation. 6. Mild left ventricular dysfunction, EF of 45-50%. 7. History of chronic kidney disease, status post renal transplant. 8. Anemia. 9. Hypertension. RECOMMENDATIONS: 1. Continue current medications. 2. He will follow up with his banbury mixer operator for his TAVA. 3. Possible discharge on Tuesday. 4. Continue current medication. 5. Monitor the heart rate, blood pressures and renal function. 6. There is no family at bedside at the time of my examination. [place], [place] PROGRESS NOTE NAME: APRILFENG UNIT #: [id number] ROOM: 411 DOCTOR: KATLYN FARR MD BIRTHDATE: [birth year] KATLYN FARR MD CM:PNTRANS [id number] KATLYN FARR MD 06/25/17 2341 interface
--- NOTE | ~2017-06-24 | PR ---
[place], [place] PROGRESS NOTE NAME: FENG CHEN UNIT #: [id number] ROOM: 411 DOCTOR: JESSICA CROSS,TREY Phan BIRTHDATE: [birth year] DOS: 06/25/2017 SUBJECTIVE: The patient was seen and examined. He is awake and alert. Denies nausea or vomiting. Breathing is improved. Denies shortness of breath, dysuria or hematuria. He has a fair appetite. PHYSICAL EXAMINATION: VITAL SIGNS: Showed a temperature of 97.7, pulse 82, respiratory rate 18, blood pressure 156/60. HEENT: Shows no JVD. LUNGS: Had diminished breath sounds left base. No wheeze. HEART: Normal S1, S2. No rub, no thrill or gallop. ABDOMEN: Soft, nontender. There is no organomegaly. EXTREMITIES: Had no edema. SKIN: Showed no rash. LABORATORY DATA: Hemoglobin 9.5, white count 11.9, platelets 233. BUN 34, creatinine 1.95, sodium 137, potassium 5.0, CO2 21, calcium 8.3, phosphorus 3.8, magnesium 1.6. ASSESSMENT AND PLAN: 1. Status post living donor kidney transplant with a baseline creatinine has been in the upper 1s to 2 range with fluctuations. His creatinine remains at baseline. Continue immunosuppression. The patient has questionable pneumonia and is on antibiotics. We can consider holding his CellCept. He does appear nontoxic right now, and we will not change anything and monitor his progress. 2. Anemia. Follow H and H. Transfuse as needed. 3. Questionable pneumonia. The patient is on antibiotics. Follow cultures. As mentioned, we can consider holding CellCept for a period of time. 4. Hypertension. Continue meds. 5. DVT prophylaxis. Would recommend discontinuing Lovenox in the setting of chronic kidney disease and use subcutaneous heparin. TREY LOPEZ MD CM:PNTRANS [phone] TREY LOPEZ MD 06/25/17 2254 interface
--- NOTE | ~2017-06-24 | CON ---
[place], [place] REPORT OF CONSULTATION NAME: FENG CHEN UNIT #: [id number] ROOM: 411 DOCTOR: NICK CROSS,GUERA Barriga BIRTHDATE: [birth year] DOS: 06/25/2017 ADDENDUM I agree with the above plans as described. We will continue to follow up and adjust accordingly. The patient was evaluated through radiographs, microbiology and laboratory data. GUERA ROMERO MD CM:CONSTR:REPORT OF CONSULTATION 42 06/26/172202 interface
--- NOTE | ~2017-06-24 | PR ---
[place], [place] PROGRESS NOTE NAME: FENG CHEN UNIT #: [id number] ROOM: 411 DOCTOR: SHERICE BONE MD BIRTHDATE: [birth year] DOS: SUBJECTIVE: The patient has been admitted to hospital with acute bronchopneumonia with difficulty in breathing and he is progressively getting better. He denies any chest pain. No difficulty in breathing and not having too much cough and bringing only small amount of sputum. OBJECTIVE: HEART: Regular. LUNGS: Showing occasional rhonchi with some crepitation. ABDOMEN: Soft. VITAL SIGNS: Temperature is 99.1, blood pressure is 134/70, respiration is 20, pulse oximetry 98%. GENERAL: The patient is feeling much better and he is progressing, gradually better. SHERICE BONE MD CM:PNJANICE 0 8 SHERICE BONE MD 06/25/17917 interface
--- NOTE | ~2017-06-24 | CON ---
[place], [place] REPORT OF CONSULTATION NAME: FENG CHEN UNIT #: [id number] ROOM: 411 DOCTOR: JUDY CHATTERJEE,MAY BIRTHDATE: [birth year] DOS: 06/25/2017 HISTORY OF PRESENT ILLNESS: The patient is a 62-year-old male who was admitted with shortness of breath. He was just admitted yesterday. He is a renal transplant patient, on CellCept and tacrolimus. He has had no fevers or chills. No documented fevers here. White count is 11. No cough. He states he was recently on vacation in [place] and was in April and was hospitalized for 2 days. He states with the same thing. He had a scan there and was advised that his lungs were perfect and he did not have pneumonia. He was discharged from there with no antibiotics. He was given an antibiotic in the last few days by his family physician; though he is not sure what antibiotic it was, does state it was a daily antibiotic. ID was consulted for possible pneumonia. The radiologist has read the chest x-ray, is left lower lobe infiltrate. He also had a prior x-ray on the . I reviewed those films. He was started on Merrem for possible pneumonia with coverage for nosocomial pathogens given his recent hospital stay as well as his renal transplant. He was alert and oriented, but a somewhat poor historian. His only other complaint is having chest pain intermittently for the last few months. He is scheduled to have a valve replacement in approximately 9 days at [facility]. PAST MEDICAL HISTORY: As above, as well as cardiomegaly, end-stage renal disease, was previously on hemodialysis, now status post renal transplant approximately 4 years ago, COPD, diabetes, NSTEMI, hypertension, pulmonary nodule, peripheral vascular disease, severe aortic stenosis, vitamin D deficiency, shoulder surgery, back surgery. He has had lower extremity stenting, surgical repair of left forearm fracture, knee surgery. SOCIAL HISTORY: Stopped smoking approximately a year and a half ago, smoked on and off for 30 years prior. Occasional alcohol use. No illicit drug use. Again, traveled to [place] in April and was hospitalized for 2 days there with shortness of breath. FAMILY MEDICAL HISTORY: Father with coronary artery disease, CABG, prostate cancer. Mother with hypothyroidism. ALLERGIES: No known drug allergies. CURRENT MEDICATIONS: Include tacrolimus, CellCept, Bactrim, Lovenox, Plavix, aspirin, Lipitor, Synthroid, labetalol, Mucinex, Catapres, Percocet, Merrem, DuoNeb, Restoril, Zofran, Dulcolax, Tylenol. LABORATORY DATA: Blood cultures are negative thus far. WBC is 11.9, platelets 233 with an elevation of neutrophils. BUN 34, creatinine 1.95. AST 12, ALT 10. UA unremarkable for pyuria. REVIEW OF SYSTEMS: As above in history of present illness. No rashes. No peripheral edema. No nausea, vomiting or diarrhea. Again no cough. He did have shortness of breath that has resolved since admission and has been in intermittent chest pain for the last couple of months. No dysuria or frequency. Further review of systems is unremarkable. [place], [place] REPORT OF CONSULTATION NAME: FENG CHEN UNIT #: [id number] ROOM: 411 DOCTOR: JUDY CHATTERJEEMAY BIRTHDATE: [birth year] PHYSICAL EXAMINATION: VITAL SIGNS: Temperature 97.5, pulse 76, respirations 16, BP 139/54: GENERAL: A 62-year-old male, in no acute distress. HEAD, EYES, EARS, NOSE AND THROAT: Normocephalic. No thrush. NECK: Supple. No cervical lymphadenopathy. LUNGS: With crackles bilaterally. Respirations even and unlabored. HEART: Regular rhythm with murmur noted. ABDOMEN: Soft, nondistended, nontender. Positive bowel sounds. EXTREMITIES: No edema, deformity or cyanosis. SKIN: Warm, dry, free of rashes. ASSESSMENT: Possible pneumonia in immunocompromised patient, status post renal transplant. PLAN: We will check urinary antigens for Legionella and strep pneumoniae. Recommend CT of the chest without contrast. He is also on Bactrim and pneumocystis prophylaxis. Case discussed with Dr. Kellogg. We will adjust the Merrem for renal function. ADDENDUM I agree with the above plans as described. We will continue to follow up and adjust accordingly. The patient was evaluated through radiographs, microbiology and laboratory data. MAY SEN KIM GUERA ROMERO MD CM:CONSTR:REPORT OF CONSULTATION 1644 06/26/17 2202 interface
--- NOTE | ~2017-06-24 | PR ---
[place], [place] PROGRESS NOTE NAME: FENG CHEN UNIT #: [id number] ROOM: 411 DOCTOR: TREY LOPEZ MD BIRTHDATE: [birth year] DOS: 06/26/2017 SUBJECTIVE: The patient was seen and examined. He is awake and alert. Denies shortness of breath. He is on room air. Denies fevers or chills. He states he is feeling well with no complaints. PHYSICAL EXAMINATION: VITAL SIGNS: Temperature 98.4, pulse 72, respiration rate 16, blood pressure 140/56. HEENT: Shows no JVD. LUNGS: Have diminished breath sounds. No wheeze. HEART: Normal S1, S2. No rub, thrill or gallop. ABDOMEN: Soft, nontender. There is no organomegaly. EXTREMITIES: Showed no edema. LABORATORY DATA: Blood cultures show no growth to date. Sputum cultures were pending from June 25. Hemoglobin 9.5, white count 11.9. Creatinine 1.95, sodium 137. ASSESSMENT AND PLAN: 1. Status post living donor kidney transplant, baseline creatinine has been in the upper 1s to 2 range with fluctuations. Creatinine is at baseline. Continue immunosuppression. We will check labs tomorrow. As mentioned, he has questionable pneumonia and there was some consideration to hold the CellCept. Seems antibiotics are to be discontinued. This will continue for now. 2. Anemia. Follow H and H and transfuse as needed. 3. Questionable pneumonia. Antibiotics seem to be stopped. 4. Hypertension. Continue meds. 5. Deep venous thrombosis prophylaxis. Would not recommend Lovenox and would recommend subcutaneous heparin in the setting of renal dysfunction. TREY LOPEZ MD CM:PNTRANS [id number] TREY LOPEZ MD 06/26/17 2014 interface
--- NOTE | ~2017-06-24 | PR ---
[place], [place] PROGRESS NOTE NAME: FENG CHEN UNIT #: [id number] ROOM: 411 DOCTOR: EVAN MAC MD BIRTHDATE: [birth year] DOS: 06/27/2017 SUBJECTIVE: Seen and evaluated. No acute complaints. No chest pain. No shortness of breath. Hopeful for discharge later today. OBJECTIVE: VITAL SIGNS: Temperature 97.7, 70, 16 and 141/60. GENERAL: He is in no acute distress, pleasant mood and affect, speech clear and cogent. Normal work of breathing. HEENT: Normocephalic, atraumatic. NECK: No JVD. No lymphadenopathy. LUNGS: Clear bilaterally. CARDIOVASCULAR: Regular rate. Positive systolic murmur. No rub. No significant lower extremity edema. Allograft is nontender. LABORATORY DATA AND DIAGNOSTICS: Sodium 136, potassium 5, chloride 103, bicarbonate 25, BUN 38, creatinine 1.89, glucose 269. ASSESSMENT AND PLAN: 1. End-stage renal disease, status post living donor kidney transplant, baseline creatinine in the high 1s and at times 2s due to volume fluctuations, current creatinine is at baseline, immunosuppression as acceptable 2. Anemia, stable. 3. Questionable ammonia, off antibiotics at this time. 4. Severe aortic stenosis, with plans for transcatheter aortic valve replacement at [facility] next week. The patient is stable for discharge from a renal standpoint. He should follow up with us both at [facility] after transplant and as well as in the office once healed. This was discussed with the patient, who verbalized understanding. EVAN MAC MD CM:PNTRANS [id number] EVAN MAC MD 06/29/17 1634 interface
--- NOTE | ~2017-06-24 | PR ---
[place], [place] PROGRESS NOTE NAME: FENG CHEN UNIT #: [id number] ROOM: 411 DOCTOR: JUDY CHATTERJEEMAY BIRTHDATE: [birth year] DOS: 06/26/2017 SUBJECTIVE: The patient is being followed for possible pneumonia. He was originally admitted with shortness of breath. He did have one episode of shortness of breath overnight about 3:00 a.m., it eventually improved with aerosol treatment. He has no cough, no fevers or chills, no nausea, vomiting or diarrhea. He does have various chronic pains. No rash or itch. He has been receiving antibiotics, pending CT results. He had a CT of the chest done without contrast. I reviewed the films and report. There is no infiltrate on the chest CT. LABORATORY DATA: No new labs today. Blood cultures negative. Sputum culture, Gram stain with budding yeast, moderate PMNs. PHYSICAL EXAMINATION: VITAL SIGNS: Temperature 98.4, pulse 72, respirations 16, BP 140/56: GENERAL: A 62-year-old male in no acute distress. HEAD, EYES, EARS, NOSE AND THROAT: Normocephalic, no thrush. LUNGS: Clear to auscultation bilaterally. Respirations even and unlabored. HEART: Regular rhythm with a grade III-IV murmur noted. ABDOMEN: Soft, nontender, nondistended. EXTREMITIES: No edema, deformity or cyanosis. SKIN: Warm, dry, free of rashes. . ASSESSMENT AND PLAN: CT of the chest did not demonstrate any infiltrate and he is symptomatic for bronchitis. We will stop the Merrem. He is on Bactrim prophylaxis for pneumocystis due to his immune compromised status. He is status post renal transplant. He does have a small area that may be a mass or nodule on the CT and he would need further workup per Pulmonary, which will be as per the attending. ADDENDUM After reviewing the chart and examining the data, I agree with the plans as described above. MAY SEN KIM [place], [place] PROGRESS NOTE NAME: FENG CHEN [place] UNIT #: [id number] ROOM: 411 DOCTOR: JUDY CHATTERJEE,MAY BIRTHDATE: [birth year] GUERA ROMERO MD CM:PNTRANS [id number] MAY JUDY CHATTERJEE 06/27/17 0818 interface
--- NOTE | ~2017-06-24 | PR ---
[place], [place] PROGRESS NOTE NAME: FENG CHEN UNIT #: [id number] ROOM: 411 DOCTOR: SHERICE BONE MD BIRTHDATE: [birth year] DOS: SUBJECTIVE: The patient has been admitted with bronchial pneumonia. He is progressively getting better. He had some difficulty in breathing last night and got already aerosol treatment. OBJECTIVE: MARYELLEN SIGNS: His temperature is 98.5, pulse 76, respirations 16, blood pressure is 153/55, pulse ox is 97. HEART: Regular. CHEST: Having occasional wheezes. No crepitation. ABDOMEN: Soft. He had his bowel movement yesterday. LABORATORY DATA: Blood culture report, no bacterial growth. ASSESSMENT: The patient is progressively getting better. SHERICE BONE MD CM:PNTRANS [id number] SHERICE BONE MD 06/26/17 1009 interface
[2017-06-24 07:43] VITALS: BP 165/55
[~2017-06-24 07:43] MED LIST changes: -LIPITOR10 MG PO; -SENNA LAX8.6 M1 PO
[2017-06-24 08:13] LABS: BASO # 0.1 10*3/uL (0.0-0.1); EOS # 0.4 10*3/uL (0.0-0.4); EOS % 3.5 % (1.0-4.0); HEMATOCRIT 33.2 % (42.0-52.0); HEMOGLOBIN 10.5 g/dl (14.0-18.0); LYMPH % 8.6 % (27.0-41.0); MEAN CELL VOLUME 83.6 fl (80.0-94.0); MEAN CORPUSCULAR HGB 26.4 pg (27.0-31.0); MEAN CORPUSCULAR HGB CONC 31.6 g/dl (33.0-37.0); MEAN PLATELET VOLUME 11.7 fl (9.6-12.3); MONO # 0.9 10*3/uL (0.1-1.0); NEUT # 8.6 10*3/uL (2.3-7.9); NEUT % 78.4 % (47.0-73.0); PLATELET COUNT AUTOMATED 283 10*3/uL (130-400); RED BLOOD COUNT 3.97 10*6/uL (4.50-5.90); RED CELL DISTRI WIDTH 15.3 % (0-14.5)
[2017-06-24 08:21] LABS: ACT PARTIAL THROMBO TIME 27.3 SECONDS (20.8-31.5); INTERNATIONAL NORM RATIO 1.2 (2.0-3.5)
[2017-06-24 08:27] LABS: ALBUMIN 3.6 gm/dl (3.1-4.5); CREATININE 2.1 mg/dL (0.70-1.30); POTASSIUM 4.7 mmol/L (3.5-5.1); TOTAL PROTEIN 8.2 gm/dL (6.4-8.2)
[2017-06-24 08:28] LABS: TROPONIN I 0.019 ng/ml (<0.045)
[2017-06-24 09:40] VITALS: BP 151/50
[2017-06-24 10:12] VITALS: BP 134/52
[2017-06-24] MEDS ORDERED: LIPITOR10 MG PO (10:46)
[2017-06-24] MEDS ORDERED: SENNA LAX8.6 M1 PO (10:47)
[2017-06-24 12:00] VITALS: BP 144/58
[2017-06-24 16:00] VITALS: BP 156/56
[2017-06-24 18:28] LABS: BILIRUBIN NEGATIVE (NEGATIVE); BLOOD NEGATIVE (NEGATIVE); CLARITY CLEAR (CLEAR); COLOR YELLOW (YELLOW); GLUCOSE NEGATIVE (NEGATIVE); KETONE NEGATIVE (NEGATIVE); LEUKO ESTERASE NEGATIVE (NEGATIVE); NITRITE NEGATIVE (NEGATIVE); PH 6.5 (5.0-9.0); SPECIFIC GRAVITY 1.015 (1.005-1.030); UROBILINOGEN 0.2 E.U./dl (0.2-1.0)
[2017-06-24 18:35] LABS: BACTERIA TRACE; RBC 0-2 rbc/hpf (0-2); WBC 0-2 wbc/hpf (0-5)
[2017-06-24 20:00] VITALS: BP 152/53
[2017-06-25] VITALS: BP 137/52; BP 137/58
[2017-06-25 06:00] LABS: HEMOGLOBIN 9.5 g/dl (14.0-18.0); MEAN CELL VOLUME 84.5 fl (80.0-94.0); MEAN CORPUSCULAR HGB 26.8 pg (27.0-31.0); MEAN CORPUSCULAR HGB CONC 31.7 g/dl (33.0-37.0); MEAN PLATELET VOLUME 11.9 fl (9.6-12.3); PLATELET COUNT AUTOMATED 233 10*3/uL (130-400); RED BLOOD COUNT 3.55 10*6/uL (4.50-5.90); RED CELL DISTRI WIDTH 15.2 % (0-14.5); WHITE BLOOD COUNT 11.9 10*3/uL (4.8-10.8)
[2017-06-25 06:26] LABS: ALBUMIN 3.2 gm/dl (3.1-4.5); POTASSIUM 5.1 mmol/L (3.5-5.1)
[2017-06-25 06:35] LABS: CREATININE 1.95 mg/dL (0.70-1.30); FREE T4 1.18 ng/dl (0.76-1.46); PHOSPHOROUS 3.8 mg/dL (2.5-4.9); THYROID STIM HORMONE (HS) 1.71 uIU/ml (0.358-4.75); TOTAL PROTEIN 7.2 gm/dL (6.4-8.2)
[2017-06-25 06:41] LABS: INTERNATIONAL NORM RATIO 1.2 (2.0-3.5)
[2017-06-25 07:15] LABS: PLATELET SUFFICIENCY NORMAL (NORMAL); TOTAL CELLS COUNTED 100 #CELLS
[2017-06-25 07:16] LABS: BURR CELLS MODERATE; OVALOCYTES FEW
[2017-06-25 07:17] LABS: ACANTHOCYTES FEW
[2017-06-25 08:00] VITALS: BP 156/60
[2017-06-25 08:17] LABS: VITAMIN D, 25-HYDROXY 41.4 ng/mL (30-100)
[2017-06-25 16:00] VITALS: BP 139/54
[2017-06-25 20:00] VITALS: BP 135/51
[2017-06-26] VITALS: BP 151/53
[2017-06-26 08:00] VITALS: BP 153/55
[2017-06-26 12:00] VITALS: BP 140/56
[2017-06-26 16:00] VITALS: BP 147/57
[2017-06-26 20:00] VITALS: BP 157/53
[2017-06-27] VITALS: BP 154/59
[2017-06-27 06:05] LABS: ALBUMIN 3.5 gm/dl (3.1-4.5); CREATININE 1.89 mg/dL (0.70-1.30); PHOSPHOROUS 2.9 mg/dL (2.5-4.9)
[2017-06-27 08:00] VITALS: BP 164/54
[2017-06-27 12:00] VITALS: BP 141/60
[2017-06-27] MEDS ORDERED: FLUCONAZOLE100 MG PO (12:42)
== END 2017-06-27 14:57 | disposition home or self-care (01) | DRG 871 ==
LOC: ED 07:43 → 4E 09:03 → EDHOLD 09:03 → 4E 09:13
PROVIDERS: Emergency Medicine; Internal Medicine; Internal Medicine Nephrology
DX: A41.9 Sepsis, unspecified organism (principal); J18.0 Bronchopneumonia, unspecified organism; N17.0 Acute kidney failure with tubular necrosis; J90 Pleural effusion, not elsewhere classified; D84.9 Immunodeficiency, unspecified; D68.9 Coagulation defect, unspecified; E10.22 Type 1 diabetes mellitus with diabetic chronic kidney disease; E10.51 Type 1 diabetes mellitus with diabetic peripheral angiopathy without gangrene; J44.0 Chronic obstructive pulmonary disease with (acute) lower respiratory infection; Z94.0 Kidney transplant status; I13.0 Hypertensive heart and chronic kidney disease with heart failure and stage 1 through stage 4 chronic kidney disease, or unspecified chronic kidney disease; N18.3 Chronic kidney disease, stage 3 (moderate); E87.8 Other disorders of electrolyte and fluid balance, not elsewhere classified; D64.9 Anemia, unspecified; B37.9 Candidiasis, unspecified; E55.9 Vitamin D deficiency, unspecified; I08.0 Rheumatic disorders of both mitral and aortic valves; R91.8 Other nonspecific abnormal finding of lung field; I12.9 Hypertensive chronic kidney disease with stage 1 through stage 4 chronic kidney disease, or unspecified chronic kidney disease; R91.1 Solitary pulmonary nodule; Z78.9 Other specified health status; I25.2 Old myocardial infarction; Z87.891 Personal history of nicotine dependence; Z82.49 Family history of ischemic heart disease and other diseases of the circulatory system; Z80.42 Family history of malignant neoplasm of prostate; Z80.8 Family history of malignant neoplasm of other organs or systems; Z79.82 Long term (current) use of aspirin; Z79.899 Other long term (current) drug therapy

== ENCOUNTER → 2017-07-29 | Outpatient (CLI) | payer OTHER ==
[~2017-07-29] MED LIST changes: +FLUCONAZOLE100 MG PO; +LIPITOR10 MG PO; +SENNA LAX8.6 M1 PO
== END | disposition home or self-care (01) ==
LOC: LAB 11:01
DX: Z12.5 Encounter for screening for malignant neoplasm of prostate (principal); Z94.0 Kidney transplant status

== ENCOUNTER → 2017-11-29 | Outpatient (CLI) | payer OTHER ==
[2017-11-29 10:03] LABS: BASO # 0.1 10*3/uL (0.0-0.1); BASO % 0.7 % (0.0-1.0); EOS # 0.4 10*3/uL (0.0-0.4); EOS % 4.6 % (1.0-4.0); HEMATOCRIT 41.1 % (42.0-52.0); HEMOGLOBIN 13.4 g/dl (14.0-18.0); LYMPH # 0.8 10*3/uL (1.3-4.4); LYMPH % 8.7 % (27.0-41.0); MEAN CELL VOLUME 82.7 fl (80.0-94.0); MEAN CORPUSCULAR HGB CONC 32.6 g/dl (33.0-37.0); MEAN PLATELET VOLUME 10.4 fl (9.6-12.3); MONO # 0.9 10*3/uL (0.1-1.0); MONO % 8.9 % (3.0-9.0); NEUT # 7.3 10*3/uL (2.3-7.9); NEUT % 76.6 % (47.0-73.0); PLATELET COUNT AUTOMATED 183 10*3/uL (130-400); RED BLOOD COUNT 4.97 10*6/uL (4.50-5.90); RED CELL DISTRI WIDTH 15.8 % (0-14.5); WHITE BLOOD COUNT 9.5 10*3/uL (4.8-10.8)
[2017-11-29 10:30] LABS: ALBUMIN 4.1 gm/dl (3.1-4.5); CREATININE 2.04 mg/dL (0.70-1.30); PHOSPHOROUS 3.3 mg/dL (2.5-4.9); POTASSIUM 4.9 mmol/L (3.5-5.1); TOTAL PROTEIN 8.3 gm/dL (6.4-8.2); URIC ACID 5.8 mg/dL (3.5-7.2)
[2017-11-29 11:26] LABS: VITAMIN D, 25-HYDROXY 24.1 ng/mL (30-100)
[2017-11-29 11:27] LABS: PTH INTACT 82.3 pg/mL (18.5-88.0)
== END | disposition home or self-care (01) ==
LOC: LAB 09:31
PROVIDERS: Internal Medicine Nephrology
DX: E11.21 Type 2 diabetes mellitus with diabetic nephropathy (principal); E21.3 Hyperparathyroidism, unspecified; D63.1 Anemia in chronic kidney disease; T86.10 Unspecified complication of kidney transplant; I10 Essential (primary) hypertension; I51.1 Rupture of chordae tendineae, not elsewhere classified; D89.9 Disorder involving the immune mechanism, unspecified; Z94.0 Kidney transplant status

== ENCOUNTER → 2018-01-02 | Outpatient (CLI) | payer OTHER | END | disposition home or self-care (01) | LOC: RAD 14:49 | DX: M48.02 Spinal stenosis, cervical region (principal); M50.30 Other cervical disc degeneration, unspecified cervical region ==

== ENCOUNTER → 2018-01-25 | Outpatient (CLI) | payer OTHER | END | disposition home or self-care (01) | LOC: MRI 08:58 | DX: M50.222 Other cervical disc displacement at C5-C6 level (principal); M50.823 Other cervical disc disorders at C6-C7 level; M46.02 Spinal enthesopathy, cervical region; E11.9 Type 2 diabetes mellitus without complications; I10 Essential (primary) hypertension; Z85.828 Personal history of other malignant neoplasm of skin ==

== ENCOUNTER → 2018-02-24 | Outpatient (CLI) | payer OTHER | END | disposition home or self-care (01) | LOC: RAD 10:43 | DX: M79.671 Pain in right foot (principal) ==

== ENCOUNTER → 2018-05-25 | Outpatient (CLI) | payer OTHER ==
[2018-05-25 11:26] LABS: PTH INTACT 113.2 pg/mL (18.5-88.0); VITAMIN D, 25-HYDROXY 32.8 ng/mL (30-100)
== END | disposition home or self-care (01) ==
LOC: LAB 08:48
PROVIDERS: Internal Medicine Nephrology
DX: E11.21 Type 2 diabetes mellitus with diabetic nephropathy (principal); E21.3 Hyperparathyroidism, unspecified

== ENCOUNTER → 2019-01-10 | Outpatient (CLI) | payer OTHER ==
[2019-01-10 11:29] LABS: BASO # 0.1 10*3/uL (0.0-0.1); BASO % 0.8 % (0.0-1.0); EOS # 0.3 10*3/uL (0.0-0.4); EOS % 2.9 % (1.0-4.0); HEMATOCRIT 42.7 % (42.0-52.0); HEMOGLOBIN 13.8 g/dl (14.0-18.0); LYMPH # 1.1 10*3/uL (1.3-4.4); LYMPH % 11.2 % (27.0-41.0); MEAN CELL VOLUME 87.1 fl (80.0-94.0); MEAN CORPUSCULAR HGB 28.2 pg (27.0-31.0); MEAN CORPUSCULAR HGB CONC 32.3 g/dl (33.0-37.0); MEAN PLATELET VOLUME 13.4 fl (9.6-12.3); MONO # 0.9 10*3/uL (0.1-1.0); NEUT # 7.4 10*3/uL (2.3-7.9); NEUT % 75.7 % (47.0-73.0); PLATELET COUNT AUTOMATED 152 10*3/uL (130-400); RED CELL DISTRI WIDTH 14.2 % (0-14.5); WHITE BLOOD COUNT 9.8 10*3/uL (4.8-10.8)
[2019-01-10 11:53] LABS: ALBUMIN 3.8 gm/dl (3.1-4.5); CREATININE 1.98 mg/dL (0.70-1.30); PHOSPHOROUS 3.3 mg/dL (2.5-4.9); POTASSIUM 4.7 mmol/L (3.5-5.1); TOTAL PROTEIN 7.8 gm/dL (6.4-8.2); URIC ACID 6.5 mg/dL (3.5-7.2)
== END | disposition home or self-care (01) ==
LOC: LAB 09:29
PROVIDERS: Internal Medicine Nephrology
DX: D63.1 Anemia in chronic kidney disease (principal); T86.10 Unspecified complication of kidney transplant; E83.40 Disorders of magnesium metabolism, unspecified; I15.1 Hypertension secondary to other renal disorders; D89.9 Disorder involving the immune mechanism, unspecified; Z94.0 Kidney transplant status

== ENCOUNTER → 2019-02-23 | Outpatient (CLI) | payer OTHER | END | disposition home or self-care (01) | LOC: RAD 11:06 | DX: J44.9 Chronic obstructive pulmonary disease, unspecified (principal) ==

== ENCOUNTER → 2019-04-04 | Day surgery (SDC) | payer OTHER ==
[~2019-04-04] VITALS: Ht 177.8 cm; Wt 81.6 kg
[2019-04-04 08:16] VITALS: BP 117/54
[2019-04-04 09:10] VITALS: BP 110/45
[2019-04-04 09:25] VITALS: BP 132/56
[2019-04-04 09:40] VITALS: BP 140/60
== END | disposition home or self-care (01) ==
LOC: SDC 03-30 14:00
DX: Z12.11 Encounter for screening for malignant neoplasm of colon (principal); E03.9 Hypothyroidism, unspecified; K57.30 Diverticulosis of large intestine without perforation or abscess without bleeding; K63.5 Polyp of colon; I12.0 Hypertensive chronic kidney disease with stage 5 chronic kidney disease or end stage renal disease; N18.6 End stage renal disease; E11.22 Type 2 diabetes mellitus with diabetic chronic kidney disease; J44.9 Chronic obstructive pulmonary disease, unspecified; I25.2 Old myocardial infarction; Z98.890 Other specified postprocedural states; Z79.899 Other long term (current) drug therapy; Z88.8 Allergy status to other drugs, medicaments and biological substances; Z83.3 Family history of diabetes mellitus; Z82.49 Family history of ischemic heart disease and other diseases of the circulatory system

== ENCOUNTER → 2019-10-05 | Outpatient (CLI) | payer OTHER ==
[2019-10-05 14:02] LABS: BASO # 0.1 10*3/uL (0.0-0.1); BASO % 0.6 % (0.0-1.0); EOS # 0.3 10*3/uL (0.0-0.4); EOS % 3.1 % (1.0-4.0); HEMATOCRIT 41.1 % (42.0-52.0); LYMPH # 0.6 10*3/uL (1.3-4.4); LYMPH % 8.1 % (27.0-41.0); MEAN CELL VOLUME 85.6 fl (80.0-94.0); MEAN CORPUSCULAR HGB 27.1 pg (27.0-31.0); MEAN CORPUSCULAR HGB CONC 31.6 g/dl (33.0-37.0); MEAN PLATELET VOLUME 12.9 fl (9.6-12.3); MONO # 0.7 10*3/uL (0.1-1.0); MONO % 8.6 % (3.0-9.0); NEUT # 6.3 10*3/uL (2.3-7.9); NEUT % 79.3 % (47.0-73.0); PLATELET COUNT AUTOMATED 198 10*3/uL (130-400); RED CELL DISTRI WIDTH 13.9 % (0-14.5); WHITE BLOOD COUNT 7.9 10*3/uL (4.8-10.8)
[2019-10-05 14:32] LABS: ALBUMIN 3.6 gm/dl (3.1-4.5); CREATININE 1.87 mg/dL (0.70-1.30); FREE T4 1.12 ng/dl (0.76-1.46); POTASSIUM 4.7 mmol/L (3.5-5.1); TOTAL PROTEIN 7.9 gm/dL (6.4-8.2)
[2019-10-05 14:37] LABS: THYROID STIM HORMONE (HS) 1.83 uIU/ml (0.358-4.75)
== END | disposition home or self-care (01) ==
LOC: LAB 13:10
PROVIDERS: Internal Medicine
DX: R06.02 Shortness of breath (principal); E10.29 Type 1 diabetes mellitus with other diabetic kidney complication

== ENCOUNTER → 2019-10-12 | Outpatient (CLI) | payer OTHER | END | disposition home or self-care (01) | LOC: LAB 12:46 | PROVIDERS: ATTEND Internal Medicine | DX: I50.9 Heart failure, unspecified (principal) ==

== ENCOUNTER → 2019-10-17 | Outpatient (CLI) | payer OTHER | END | disposition home or self-care (01) | LOC: CARD 08:23 | PROVIDERS: ATTEND Internal Medicine | DX: I34.0 Nonrheumatic mitral (valve) insufficiency (principal); I51.7 Cardiomegaly; I50.9 Heart failure, unspecified ==

== ENCOUNTER → 2019-11-22 | Outpatient (CLI) | payer OTHER ==
[2019-11-22 16:47] LABS: BASO # 0.1 10*3/uL (0.0-0.1); BASO % 0.9 % (0.0-1.0); EOS # 0.2 10*3/uL (0.0-0.4); EOS % 2.1 % (1.0-4.0); HEMATOCRIT 44.5 % (42.0-52.0); LYMPH # 0.9 10*3/uL (1.3-4.4); MEAN CELL VOLUME 85.4 fl (80.0-94.0); MEAN CORPUSCULAR HGB 27.4 pg (27.0-31.0); MEAN CORPUSCULAR HGB CONC 32.1 g/dl (33.0-37.0); MEAN PLATELET VOLUME 12.6 fl (9.6-12.3); MONO # 0.8 10*3/uL (0.1-1.0); MONO % 7.9 % (3.0-9.0); NEUT # 7.9 10*3/uL (2.3-7.9); NEUT % 79.7 % (47.0-73.0); PLATELET COUNT AUTOMATED 209 10*3/uL (130-400); RED BLOOD COUNT 5.21 10*6/uL (4.50-5.90); RED CELL DISTRI WIDTH 13.9 % (0-14.5); WHITE BLOOD COUNT 9.9 10*3/uL (4.8-10.8)
[2019-11-22 16:49] LABS: BILIRUBIN Negative (Negative); BLOOD Negative (Negative); CLARITY Clear (Clear); COLOR Yellow (Yellow); GLUCOSE 1+ (Negative); KETONE Negative (Negative); LEUKO ESTERASE Negative (Negative); NITRITE Negative (Negative); PH 5.5 (4.5-8.0); SPECIFIC GRAVITY 1.015 (1.001-1.030); UROBILINOGEN 0.2 E.U./dl (0.0-1.0)
[2019-11-22 17:15] LABS: ALBUMIN 3.9 gm/dl (3.1-4.5); CREATININE 3.52 mg/dL (0.70-1.30); POTASSIUM 4.9 mmol/L (3.5-5.1); TOTAL PROTEIN 8.3 gm/dL (6.4-8.2); URIC ACID 10.6 mg/dL (3.5-7.2)
[2019-11-22 17:37] LABS: VITAMIN D, 25-HYDROXY 31.5 ng/mL (30-100)
[2019-11-22 17:49] LABS: BACTERIA TRACE; RBC 0-2 rbc/hpf (0-2); WBC 0-2 wbc/hpf (0-5)
== END | disposition home or self-care (01) ==
LOC: LAB 15:47
PROVIDERS: ATTEND Internal Medicine Nephrology
DX: E11.21 Type 2 diabetes mellitus with diabetic nephropathy (principal); E21.3 Hyperparathyroidism, unspecified; Z94.0 Kidney transplant status

== ENCOUNTER → 2019-12-05 | Outpatient (CLI) | payer OTHER ==
[2019-12-05 11:31] LABS: BASO # 0.1 10*3/uL (0.0-0.1); BASO % 0.8 % (0.0-1.0); EOS # 0.3 10*3/uL (0.0-0.4); EOS % 2.9 % (1.0-4.0); HEMATOCRIT 42.8 % (42.0-52.0); LYMPH # 0.8 10*3/uL (1.3-4.4); LYMPH % 7.5 % (27.0-41.0); MEAN CELL VOLUME 85.1 fl (80.0-94.0); MEAN CORPUSCULAR HGB 27.2 pg (27.0-31.0); MEAN PLATELET VOLUME 12.3 fl (9.6-12.3); MONO # 0.9 10*3/uL (0.1-1.0); MONO % 8.7 % (3.0-9.0); NEUT # 8.2 10*3/uL (2.3-7.9); NEUT % 79.7 % (47.0-73.0); PLATELET COUNT AUTOMATED 218 10*3/uL (130-400); RED BLOOD COUNT 5.03 10*6/uL (4.50-5.90); RED CELL DISTRI WIDTH 13.8 % (0-14.5); WHITE BLOOD COUNT 10.3 10*3/uL (4.8-10.8)
[2019-12-05 11:32] LABS: BILIRUBIN Negative (Negative); BLOOD 3+ (Negative); COLOR Yellow (Yellow); GLUCOSE Negative (Negative); KETONE Negative (Negative); LEUKO ESTERASE 1+ (Negative); NITRITE Negative (Negative); PH 5.5 (4.5-8.0); SPECIFIC GRAVITY <= 1.005 (1.001-1.030); UROBILINOGEN 0.2 E.U./dl (0.0-1.0)
[2019-12-05 11:53] LABS: BACTERIA 1+; CLARITY Cloudy (Clear)
[2019-12-05 11:57] LABS: URIC ACID 8.2 mg/dL (3.5-7.2)
[2019-12-05 11:59] LABS: ALBUMIN 3.8 gm/dl (3.1-4.5); CREATININE 2.26 mg/dL (0.70-1.30); POTASSIUM 4.5 mmol/L (3.5-5.1); TOTAL PROTEIN 8.6 gm/dL (6.4-8.2)
[2019-12-05 12:00] LABS: ACT PARTIAL THROMBO TIME 28.5 SECONDS (20.0-32.1)
[2019-12-05 12:36] LABS: URINE CREATININE RANDOM < 13.00 mg/dL
[2019-12-05 12:41] LABS: PTH INTACT 106.2 pg/mL (18.5-88.0); VITAMIN D, 25-HYDROXY 38.4 ng/mL (30-100)
== END | disposition home or self-care (01) ==
LOC: LAB 10:47
PROVIDERS: Internal Medicine Nephrology; ATTEND Urology
DX: Z12.5 Encounter for screening for malignant neoplasm of prostate (principal); D40.0 Neoplasm of uncertain behavior of prostate; R31.9 Hematuria, unspecified; D68.8 Other specified coagulation defects; E11.21 Type 2 diabetes mellitus with diabetic nephropathy; N18.9 Chronic kidney disease, unspecified; D63.1 Anemia in chronic kidney disease; T86.10 Unspecified complication of kidney transplant; E83.40 Disorders of magnesium metabolism, unspecified; E83.30 Disorder of phosphorus metabolism, unspecified; Z94.0 Kidney transplant status

== ENCOUNTER 2020-01-01 10:39 | Inpatient (IN) | payer OTHER ==
[~2020-01-01] VITALS: Ht 177.8 cm; Wt 79.5 kg
[2020-01-01 10:45] VITALS: BP 146/66
[2020-01-01 11:01] VITALS: BP 146/66
[2020-01-01 11:29] LABS: HEMATOCRIT 34.9 % (42.0-52.0); MEAN CORPUSCULAR HGB 26.9 pg (27.0-31.0); MEAN CORPUSCULAR HGB CONC 33.2 g/dl (33.0-37.0); MEAN PLATELET VOLUME 12.7 fl (9.6-12.3); PLATELET COUNT AUTOMATED 223 10*3/uL (130-400); RED BLOOD COUNT 4.31 10*6/uL (4.50-5.90); RED CELL DISTRI WIDTH 13.8 % (0-14.5); WHITE BLOOD COUNT 24.8 10*3/uL (4.8-10.8)
[2020-01-01 11:46] LABS: TOTAL CELLS COUNTED 100 #CELLS
[2020-01-01 11:47] LABS: BURR CELLS FEW; PLATELET SUFFICIENCY NORMAL (NORMAL)
[2020-01-01 11:48] LABS: ALBUMIN 2.9 gm/dl (3.1-4.5); CREATININE 4.18 mg/dL (0.70-1.30); POTASSIUM 4.2 mmol/L (3.5-5.1); TOTAL PROTEIN 7.4 gm/dL (6.4-8.2)
[2020-01-01 11:53] LABS: TROPONIN I 0.051 ng/ml (<0.045)
[2020-01-01 12:30] VITALS: BP 140/71
[2020-01-01 14:27] VITALS: BP 158/77
[2020-01-01] MEDS ORDERED: KENALOG 0.1%80 GM T (15:13)
[2020-01-01 17:47] VITALS: BP 132/56
[2020-01-01 18:15] VITALS: BP 137/69
[2020-01-01] MEDS ORDERED: OMEPRAZOLE40 MG PO (18:54)
[2020-01-01] MEDS ORDERED: TAMSULOSIN HCL0.4 MG PO (18:56)
[2020-01-01] MEDS ORDERED: CYCLOBENZAPRINE10 MG PO (18:57)
[2020-01-01] MEDS ORDERED: MELATONIN5 M7 PO (18:59)
[2020-01-01] MEDS ORDERED: HYDRALAZINE HYD50 MG PO (19:00)
[2020-01-01] MEDS ORDERED: FINASTERIDE5 M1 PO (19:02)
[2020-01-01] MEDS ORDERED: CYMBALTA30 MG PO (19:03)
[2020-01-01] MEDS ORDERED: NORVASC5 MG PO (19:04)
[2020-01-01] MEDS ORDERED: LOPRESSOR100 M1 PO (19:05)
[2020-01-01] MEDS ORDERED: FUROSEMIDE40 MG PO (19:06)
[2020-01-02] VITALS: BP 150/57
[2020-01-02 07:08] LABS: HEMATOCRIT 32.3 % (42.0-52.0); MEAN CELL VOLUME 81.2 fl (80.0-94.0); MEAN CORPUSCULAR HGB 27.1 pg (27.0-31.0); MEAN CORPUSCULAR HGB CONC 33.4 g/dl (33.0-37.0); MEAN PLATELET VOLUME 12.5 fl (9.6-12.3); PLATELET COUNT AUTOMATED 203 10*3/uL (130-400); RED BLOOD COUNT 3.98 10*6/uL (4.50-5.90); RED CELL DISTRI WIDTH 13.7 % (0-14.5); WHITE BLOOD COUNT 18.7 10*3/uL (4.8-10.8)
[2020-01-02 07:28] LABS: POTASSIUM 3.5 mmol/L (3.5-5.1)
[2020-01-02 07:46] LABS: ALBUMIN 2.4 gm/dl (3.1-4.5); CREATININE 3.17 mg/dL (0.70-1.30); TOTAL PROTEIN 6.9 gm/dL (6.4-8.2)
[2020-01-02 08:00] VITALS: BP 136/88
[2020-01-02 08:47] LABS: PLATELET SUFFICIENCY NORMAL (NORMAL); SCHISTOCYTES FEW; TOTAL CELLS COUNTED 100 #CELLS
[2020-01-02 10:51] LABS: BILIRUBIN Negative (Negative); BLOOD Trace-Lysed (Negative); CLARITY Cloudy (Clear); COLOR Yellow (Yellow); GLUCOSE 2+ (Negative); KETONE Negative (Negative); LEUKO ESTERASE 2+ (Negative); NITRITE Negative (Negative); UROBILINOGEN 0.2 E.U./dl (0.0-1.0)
[2020-01-02 11:08] LABS: BACTERIA 2+; WBC TNTC wbc/hpf (0-5)
[2020-01-02 16:00] VITALS: BP 182/73
[2020-01-02 17:00] VITALS: BP 160/82
[2020-01-02 20:07] VITALS: BP 161/56
[2020-01-03] VITALS: BP 195/80
[2020-01-03 06:15] LABS: BASO % 0.2 % (0.0-1.0); EOS % 0.2 % (1.0-4.0); LYMPH # 0.2 10*3/uL (1.3-4.4); LYMPH % 1.6 % (27.0-41.0); MEAN CELL VOLUME 81.9 fl (80.0-94.0); MEAN CORPUSCULAR HGB 26.6 pg (27.0-31.0); MEAN CORPUSCULAR HGB CONC 32.4 g/dl (33.0-37.0); MEAN PLATELET VOLUME 12.8 fl (9.6-12.3); MONO # 1.4 10*3/uL (0.1-1.0); MONO % 9.7 % (3.0-9.0); NEUT # 12.8 10*3/uL (2.3-7.9); NEUT % 86.7 % (47.0-73.0); PLATELET COUNT AUTOMATED 227 10*3/uL (130-400); RED BLOOD COUNT 4.03 10*6/uL (4.50-5.90); RED CELL DISTRI WIDTH 13.7 % (0-14.5); WHITE BLOOD COUNT 14.7 10*3/uL (4.8-10.8)
[2020-01-03 06:25] LABS: ALBUMIN 2.5 gm/dl (3.1-4.5); CREATININE 2.88 mg/dL (0.70-1.30); POTASSIUM 3.7 mmol/L (3.5-5.1)
[2020-01-03 08:00] VITALS: BP 171/64
[2020-01-03 08:29] LABS: URINE CREATININE RANDOM 53.6 mg/dL
[2020-01-03 12:00] VITALS: BP 160/79
[2020-01-03 16:00] VITALS: BP 165/84
[2020-01-03 20:00] VITALS: BP 150/79
[2020-01-04 09:39] LABS: HEMATOCRIT 32.5 % (42.0-52.0); MEAN CORPUSCULAR HGB 26.9 pg (27.0-31.0); MEAN CORPUSCULAR HGB CONC 33.2 g/dl (33.0-37.0); PLATELET COUNT AUTOMATED 264 10*3/uL (130-400); RED BLOOD COUNT 4.01 10*6/uL (4.50-5.90); RED CELL DISTRI WIDTH 13.9 % (0-14.5); WHITE BLOOD COUNT 19.6 10*3/uL (4.8-10.8)
[2020-01-04 09:55] LABS: ALBUMIN 2.6 gm/dl (3.1-4.5); CREATININE 2.92 mg/dL (0.70-1.30); POTASSIUM 3.4 mmol/L (3.5-5.1); TOTAL PROTEIN 7.3 gm/dL (6.4-8.2)
[2020-01-04 10:04] LABS: BASOPHILS 1 % (0-1); BURR CELLS FEW; PLATELET SUFFICIENCY NORMAL (NORMAL); TOTAL CELLS COUNTED 100 #CELLS
[2020-01-04 12:00] VITALS: BP 140/74
[2020-01-04 16:00] VITALS: BP 128/84
[2020-01-04 18:06] LABS: MYCOPHENOLIC ACID 3.8 ug/mL (1.0-3.5)
[2020-01-04 20:00] VITALS: BP 153/68
[2020-01-05] VITALS: BP 164/74
[2020-01-05 08:00] VITALS: BP 174/76
[2020-01-05 12:00] VITALS: BP 158/75
[2020-01-05 16:00] VITALS: BP 144/64
[2020-01-05 20:00] VITALS: BP 155/65
[2020-01-05 23:29] VITALS: BP 172/70
[2020-01-06] VITALS (9 sets, daily range): BP systolic 153–180; BP diastolic 61–80
[2020-01-06 06:31] LABS: BASO # 0.1 10*3/uL (0.0-0.1); BASO % 0.5 % (0.0-1.0); EOS # 0.6 10*3/uL (0.0-0.4); EOS % 4.5 % (1.0-4.0); HEMATOCRIT 33.1 % (42.0-52.0); LYMPH # 0.7 10*3/uL (1.3-4.4); LYMPH % 5.2 % (27.0-41.0); MEAN CELL VOLUME 82.5 fl (80.0-94.0); MEAN CORPUSCULAR HGB 26.9 pg (27.0-31.0); MEAN CORPUSCULAR HGB CONC 32.6 g/dl (33.0-37.0); MEAN PLATELET VOLUME 11.7 fl (9.6-12.3); MONO % 8.2 % (3.0-9.0); NEUT # 10.2 10*3/uL (2.3-7.9); PLATELET COUNT AUTOMATED 302 10*3/uL (130-400); RED BLOOD COUNT 4.01 10*6/uL (4.50-5.90); RED CELL DISTRI WIDTH 14.2 % (0-14.5); WHITE BLOOD COUNT 12.7 10*3/uL (4.8-10.8)
[2020-01-06 06:44] LABS: POTASSIUM 4.1 mmol/L (3.5-5.1)
[2020-01-07] VITALS: BP 177/70
[2020-01-07 04:00] VITALS: BP 184/64
[2020-01-07 06:15] LABS: BASO # 0.1 10*3/uL (0.0-0.1); BASO % 0.6 % (0.0-1.0); EOS # 0.5 10*3/uL (0.0-0.4); EOS % 3.9 % (1.0-4.0); HEMATOCRIT 35.6 % (42.0-52.0); LYMPH # 0.7 10*3/uL (1.3-4.4); LYMPH % 4.9 % (27.0-41.0); MEAN CELL VOLUME 84.4 fl (80.0-94.0); MEAN CORPUSCULAR HGB 26.8 pg (27.0-31.0); MEAN CORPUSCULAR HGB CONC 31.7 g/dl (33.0-37.0); MEAN PLATELET VOLUME 11.4 fl (9.6-12.3); MONO % 7.6 % (3.0-9.0); NEUT # 10.8 10*3/uL (2.3-7.9); NEUT % 81.1 % (47.0-73.0); PLATELET COUNT AUTOMATED 329 10*3/uL (130-400); RED BLOOD COUNT 4.22 10*6/uL (4.50-5.90); RED CELL DISTRI WIDTH 14.3 % (0-14.5); WHITE BLOOD COUNT 13.3 10*3/uL (4.8-10.8)
[2020-01-07 06:41] LABS: ALBUMIN 2.6 gm/dl (3.1-4.5); CREATININE 1.77 mg/dL (0.70-1.30); POTASSIUM 4.8 mmol/L (3.5-5.1); TOTAL PROTEIN 7.5 gm/dL (6.4-8.2)
[2020-01-07 08:00] VITALS: BP 154/73
[2020-01-07 12:00] VITALS: BP 163/67
[2020-01-07 16:00] VITALS: BP 118/54
[2020-01-07] MEDS ORDERED: OMNICEF300 MG PO (16:08)
[2020-01-07 20:00] VITALS: BP 117/61
[2020-01-08] VITALS: BP 120/76
[2020-01-08 06:49] LABS: HEMATOCRIT 38.3 % (42.0-52.0); MEAN CELL VOLUME 85.7 fl (80.0-94.0); MEAN CORPUSCULAR HGB 26.6 pg (27.0-31.0); MEAN CORPUSCULAR HGB CONC 31.1 g/dl (33.0-37.0); MEAN PLATELET VOLUME 11.9 fl (9.6-12.3); PLATELET COUNT AUTOMATED 383 10*3/uL (130-400); RED BLOOD COUNT 4.47 10*6/uL (4.50-5.90); RED CELL DISTRI WIDTH 14.3 % (0-14.5); WHITE BLOOD COUNT 14.1 10*3/uL (4.8-10.8)
[2020-01-08 06:55] LABS: CREATININE 1.8 mg/dL (0.70-1.30); POTASSIUM 5.5 mmol/L (3.5-5.1)
[2020-01-08 07:49] LABS: ACANTHOCYTES FEW; BASOPHILS 1 % (0-1); OVALOCYTES MODERATE; PLATELET SUFFICIENCY NORMAL (NORMAL); TOTAL CELLS COUNTED 100 #CELLS
[2020-01-08 08:00] VITALS: BP 168/70
[2020-01-08 12:00] VITALS: BP 160/76
[2020-01-08 16:00] VITALS: BP 128/64
[2020-01-08 20:00] VITALS: BP 128/64; BP 161/65
[2020-01-09] VITALS: BP 173/69
[2020-01-09 08:00] VITALS: BP 160/66
[2020-01-09 08:31] LABS: CREATININE 1.67 mg/dL (0.70-1.30); POTASSIUM 5.1 mmol/L (3.5-5.1)
[2020-01-09 12:00] VITALS: BP 149/63
== END 2020-01-09 16:00 | disposition home or self-care (01) | DRG 871 ==
LOC: ED 10:39 → EDHOLD 12:58 → 5E 12:58
PROVIDERS: Internal Medicine; Internal Medicine Nephrology; Nurse Practitioner Family; Social Worker Clinical; ADMIT Internal Medicine; ATTEND Internal Medicine
PROC: 4A02XM4 Measurement of Cardiac Total Activity, External Approach (ICD-10-PCS; principal; 2020-01-03)
PROC: 3E073KZ Introduction of Other Diagnostic Substance into Coronary Artery, Percutaneous Approach (ICD-10-PCS; 2020-01-03)
DX: A41.50 Gram-negative sepsis, unspecified (principal); N17.0 Acute kidney failure with tubular necrosis; D84.9 Immunodeficiency, unspecified; E87.1 Hypo-osmolality and hyponatremia; Z94.0 Kidney transplant status; E10.65 Type 1 diabetes mellitus with hyperglycemia; E10.51 Type 1 diabetes mellitus with diabetic peripheral angiopathy without gangrene; E10.22 Type 1 diabetes mellitus with diabetic chronic kidney disease; R91.8 Other nonspecific abnormal finding of lung field; M79.672 Pain in left foot; N18.30 Chronic kidney disease, stage 3 unspecified; F17.210 Nicotine dependence, cigarettes, uncomplicated; M48.00 Spinal stenosis, site unspecified; K83.8 Other specified diseases of biliary tract; B96.1 Klebsiella pneumoniae [K. pneumoniae] as the cause of diseases classified elsewhere; N30.90 Cystitis, unspecified without hematuria; B96.89 Other specified bacterial agents as the cause of diseases classified elsewhere; R29.6 Repeated falls; R33.9 Retention of urine, unspecified; I12.9 Hypertensive chronic kidney disease with stage 1 through stage 4 chronic kidney disease, or unspecified chronic kidney disease; J44.9 Chronic obstructive pulmonary disease, unspecified; K80.20 Calculus of gallbladder without cholecystitis without obstruction; K59.00 Constipation, unspecified; Z88.8 Allergy status to other drugs, medicaments and biological substances; Z80.42 Family history of malignant neoplasm of prostate; Z79.82 Long term (current) use of aspirin; Z79.899 Other long term (current) drug therapy; Z79.1 Long term (current) use of non-steroidal anti-inflammatories (NSAID); Z82.49 Family history of ischemic heart disease and other diseases of the circulatory system; Z83.49 Family history of other endocrine, nutritional and metabolic diseases; Z95.2 Presence of prosthetic heart valve

== ENCOUNTER → 2020-02-05 | Outpatient (CLI) | payer OTHER ==
[~2020-02-05] MED LIST changes: +CYCLOBENZAPRINE10 MG PO; +CYMBALTA30 MG PO; +FINASTERIDE5 M1 PO; +FUROSEMIDE40 MG PO; +HYDRALAZINE HYD50 MG PO; +KENALOG 0.1%80 GM T; +LOPRESSOR100 M1 PO; +MELATONIN5 M7 PO; +OMEPRAZOLE40 MG PO; +OMNICEF300 MG PO; +TAMSULOSIN HCL0.4 MG PO
[2020-02-06 22:06] LABS: HEPATITIS C QUANTITATION HCV Not Detected IU/mL (.)
== END | disposition home or self-care (01) ==
LOC: LAB 13:45
PROVIDERS: ATTEND Internal Medicine
DX: B18.2 Chronic viral hepatitis C (principal)

== ENCOUNTER → 2020-02-19 | Outpatient (CLI) | payer MEDICARE ==
[2020-02-19 11:34] LABS: CREATININE 3.04 mg/dL (0.70-1.30); POTASSIUM 4.4 mmol/L (3.5-5.1)
== END | disposition home or self-care (01) ==
LOC: LAB 10:37
PROVIDERS: ATTEND Internal Medicine
DX: E10.29 Type 1 diabetes mellitus with other diabetic kidney complication (principal); E87.5 Hyperkalemia

== ENCOUNTER 2020-03-04 11:31 | Inpatient (IN) | payer MEDICARE ==
[~2020-03-04] VITALS: Ht 177.8 cm; Wt 72.3 kg
[2020-03-04 11:36] VITALS: BP 129/69
[2020-03-04 12:02] LABS: BASO # 0.1 10*3/uL (0.0-0.1); BASO % 0.4 % (0.0-1.0); EOS # 0.1 10*3/uL (0.0-0.4); EOS % 0.9 % (1.0-4.0); HEMATOCRIT 39.1 % (42.0-52.0); LYMPH # 0.4 10*3/uL (1.3-4.4); LYMPH % 3.2 % (27.0-41.0); MEAN CELL VOLUME 80.3 fl (80.0-94.0); MEAN CORPUSCULAR HGB 25.3 pg (27.0-31.0); MEAN CORPUSCULAR HGB CONC 31.5 g/dl (33.0-37.0); MEAN PLATELET VOLUME 11.5 fl (9.6-12.3); MONO # 1.1 10*3/uL (0.1-1.0); MONO % 8.3 % (3.0-9.0); NEUT # 11.1 10*3/uL (2.3-7.9); PLATELET COUNT AUTOMATED 471 10*3/uL (130-400); RED BLOOD COUNT 4.87 10*6/uL (4.50-5.90); RED CELL DISTRI WIDTH 14.3 % (0-14.5); WHITE BLOOD COUNT 12.9 10*3/uL (4.8-10.8)
[2020-03-04 12:24] LABS: ALBUMIN 3.1 gm/dl (3.1-4.5); CREATININE 4.97 mg/dL (0.70-1.30); TOTAL PROTEIN 7.9 gm/dL (6.4-8.2)
[2020-03-04 12:28] LABS: TROPONIN I 0.05 ng/ml (<0.045)
[2020-03-04 17:30] VITALS: BP 168/83
[2020-03-04 19:27] LABS: BILIRUBIN Negative (Negative); BLOOD Negative (Negative); CLARITY Cloudy (Clear); COLOR Yellow (Yellow); GLUCOSE Negative (Negative); KETONE Negative (Negative); LEUKO ESTERASE 3+ (Negative); NITRITE Negative (Negative); SPECIFIC GRAVITY 1.015 (1.001-1.030); UROBILINOGEN 0.2 E.U./dl (0.0-1.0)
[2020-03-04 19:36] LABS: BACTERIA 4+; WBC TNTC wbc/hpf (0-5)
[2020-03-04] MEDS ORDERED: DULOXETINE HCL30 MG PO (22:09)
[2020-03-04] MEDS ORDERED: Lopressor25 MG PO (22:10)
[2020-03-04] MEDS ORDERED: APRESOLINE25 MG PO ×2 (22:11→22:13)
[2020-03-04] MEDS ORDERED: FLUDROCORTISON0.1 MG PO (22:15)
[2020-03-05] VITALS: BP 133/67
[2020-03-05 06:54] LABS: BASO # 0.1 10*3/uL (0.0-0.1); BASO % 0.6 % (0.0-1.0); EOS # 0.3 10*3/uL (0.0-0.4); EOS % 2.6 % (1.0-4.0); HEMATOCRIT 35.7 % (42.0-52.0); LYMPH # 0.6 10*3/uL (1.3-4.4); LYMPH % 4.8 % (27.0-41.0); MEAN CELL VOLUME 82.4 fl (80.0-94.0); MEAN CORPUSCULAR HGB 25.9 pg (27.0-31.0); MEAN CORPUSCULAR HGB CONC 31.4 g/dl (33.0-37.0); MEAN PLATELET VOLUME 11.3 fl (9.6-12.3); MONO # 1.3 10*3/uL (0.1-1.0); MONO % 10.7 % (3.0-9.0); NEUT % 80.4 % (47.0-73.0); PLATELET COUNT AUTOMATED 411 10*3/uL (130-400); RED BLOOD COUNT 4.33 10*6/uL (4.50-5.90); RED CELL DISTRI WIDTH 14.6 % (0-14.5); WHITE BLOOD COUNT 12.5 10*3/uL (4.8-10.8)
[2020-03-05 07:15] LABS: CREATININE 3.42 mg/dL (0.70-1.30); POTASSIUM 3.5 mmol/L (3.5-5.1)
[2020-03-05 07:23] LABS: FREE T4 1.22 ng/dl (0.76-1.46); THYROID STIM HORMONE (HS) 0.136 uIU/ml (0.358-4.75)
[2020-03-05 08:00] VITALS: BP 100/52
[2020-03-05 12:00] VITALS: BP 131/48
[2020-03-05 16:00] VITALS: BP 145/50
[2020-03-05 20:00] VITALS: BP 162/74
[2020-03-06] VITALS: BP 149/56
[2020-03-06 06:38] LABS: BASO # 0.1 10*3/uL (0.0-0.1); BASO % 0.8 % (0.0-1.0); EOS # 0.4 10*3/uL (0.0-0.4); EOS % 5.1 % (1.0-4.0); HEMATOCRIT 33.1 % (42.0-52.0); LYMPH # 0.6 10*3/uL (1.3-4.4); LYMPH % 6.5 % (27.0-41.0); MEAN CELL VOLUME 84.2 fl (80.0-94.0); MEAN CORPUSCULAR HGB CONC 30.8 g/dl (33.0-37.0); MEAN PLATELET VOLUME 10.7 fl (9.6-12.3); MONO # 0.9 10*3/uL (0.1-1.0); MONO % 10.3 % (3.0-9.0); NEUT # 6.6 10*3/uL (2.3-7.9); NEUT % 76.4 % (47.0-73.0); PLATELET COUNT AUTOMATED 383 10*3/uL (130-400); RED BLOOD COUNT 3.93 10*6/uL (4.50-5.90); RED CELL DISTRI WIDTH 14.5 % (0-14.5); WHITE BLOOD COUNT 8.6 10*3/uL (4.8-10.8)
[2020-03-06 06:56] LABS: CREATININE 2.26 mg/dL (0.70-1.30); POTASSIUM 3.7 mmol/L (3.5-5.1)
[2020-03-06 08:00] VITALS: BP 137/63
[2020-03-06 10:12] LABS: CREATININE,URINE 106.9 mg/dL (Not Estab.)
[2020-03-06 12:00] VITALS: BP 162/70
[2020-03-06 16:00] VITALS: BP 152/56
[2020-03-06 20:00] VITALS: BP 154/50
[2020-03-07] VITALS: BP 156/54
[2020-03-07 07:32] LABS: POTASSIUM 3.6 mmol/L (3.5-5.1)
[2020-03-07 07:35] LABS: CREATININE 1.71 mg/dL (0.70-1.30)
[2020-03-07 08:00] VITALS: BP 166/80
[2020-03-07 12:00] VITALS: BP 143/59
[2020-03-07 16:00] VITALS: BP 179/73
[2020-03-07 20:00] VITALS: BP 187/82
[2020-03-08] VITALS: BP 162/58
[2020-03-08 08:00] VITALS: BP 171/83
[2020-03-08 08:19] LABS: CREATININE 1.52 mg/dL (0.70-1.30); POTASSIUM 3.8 mmol/L (3.5-5.1)
[2020-03-08 12:00] VITALS: BP 168/70
[2020-03-08 16:00] VITALS: BP 168/58
[2020-03-08 16:24] LABS: BILIRUBIN Negative (Negative); BLOOD Negative (Negative); CLARITY Clear (Clear); COLOR Yellow (Yellow); GLUCOSE 2+ (Negative); KETONE Negative (Negative); LEUKO ESTERASE Trace (Negative); NITRITE Negative (Negative); PH 6.5 (4.5-8.0); UROBILINOGEN 0.2 E.U./dl (0.0-1.0)
[2020-03-08 16:48] LABS: BACTERIA 1+; EPITHELIAL CELLS 0-2; RBC 0-2 rbc/hpf (0-2)
[2020-03-08 17:11] LABS: BASO # 0.1 10*3/uL (0.0-0.1); BASO % 0.6 % (0.0-1.0); EOS # 0.4 10*3/uL (0.0-0.4); EOS % 3.9 % (1.0-4.0); HEMATOCRIT 34.6 % (42.0-52.0); LYMPH # 0.8 10*3/uL (1.3-4.4); LYMPH % 8.3 % (27.0-41.0); MEAN CORPUSCULAR HGB 25.5 pg (27.0-31.0); MEAN CORPUSCULAR HGB CONC 30.3 g/dl (33.0-37.0); MEAN PLATELET VOLUME 10.5 fl (9.6-12.3); MONO # 0.6 10*3/uL (0.1-1.0); MONO % 6.1 % (3.0-9.0); NEUT # 7.6 10*3/uL (2.3-7.9); NEUT % 80.2 % (47.0-73.0); PLATELET COUNT AUTOMATED 423 10*3/uL (130-400); RED BLOOD COUNT 4.12 10*6/uL (4.50-5.90); RED CELL DISTRI WIDTH 14.6 % (0-14.5); WHITE BLOOD COUNT 9.4 10*3/uL (4.8-10.8)
[2020-03-08 17:17] LABS: ALBUMIN 2.6 gm/dl (3.1-4.5); CREATININE 1.46 mg/dL (0.70-1.30); POTASSIUM 4.1 mmol/L (3.5-5.1); TOTAL PROTEIN 7.1 gm/dL (6.4-8.2)
[2020-03-09 00:06] VITALS: BP 172/82
[2020-03-09 02:00] VITALS: BP 150/72
[2020-03-09 06:58] LABS: BASO # 0.1 10*3/uL (0.0-0.1); BASO % 1.2 % (0.0-1.0); EOS # 0.4 10*3/uL (0.0-0.4); EOS % 5.3 % (1.0-4.0); LYMPH # 0.9 10*3/uL (1.3-4.4); MEAN CELL VOLUME 84.2 fl (80.0-94.0); MEAN CORPUSCULAR HGB 25.7 pg (27.0-31.0); MEAN CORPUSCULAR HGB CONC 30.6 g/dl (33.0-37.0); MEAN PLATELET VOLUME 10.3 fl (9.6-12.3); MONO # 0.5 10*3/uL (0.1-1.0); MONO % 6.9 % (3.0-9.0); NEUT # 5.8 10*3/uL (2.3-7.9); NEUT % 74.8 % (47.0-73.0); PLATELET COUNT AUTOMATED 390 10*3/uL (130-400); RED BLOOD COUNT 4.04 10*6/uL (4.50-5.90); RED CELL DISTRI WIDTH 14.6 % (0-14.5); WHITE BLOOD COUNT 7.8 10*3/uL (4.8-10.8)
[2020-03-09 07:38] LABS: BUN 26 mg/dl (7-24); CHLORIDE 106 mmol/L (98-107); CREATININE 1.44 mg/dL (0.70-1.30); POTASSIUM 3.8 mmol/L (3.5-5.1); SODIUM 139 mmol/L (136-145)
[2020-03-09 08:00] VITALS: BP 148/86
[2020-03-09 12:00] VITALS: BP 138/76
[2020-03-09 16:00] VITALS: BP 133/62
[2020-03-09] MEDS ORDERED: MAGOX 400400 MG PO (17:02)
[2020-03-09] MEDS ORDERED: CEFUROXIME AXE500 MG PO (17:02)
[2020-03-09] MEDS ORDERED: NORVASC10 MG PO (17:06)
== END 2020-03-09 17:51 | disposition home or self-care (01) | DRG 871 ==
LOC: ED 11:31 → EDHOLD 13:26 → 5E 13:26 → EDHOLD 13:26 → 5E 16:25
PROVIDERS: Emergency Medicine; Internal Medicine Nephrology; Student in an Organized Health Care Education/Training Program; ADMIT Internal Medicine; ATTEND Internal Medicine
DX: A41.9 Sepsis, unspecified organism (principal); N17.0 Acute kidney failure with tubular necrosis; N39.0 Urinary tract infection, site not specified; E87.1 Hypo-osmolality and hyponatremia; I47.2 Ventricular tachycardia; Z94.0 Kidney transplant status; J44.9 Chronic obstructive pulmonary disease, unspecified; E10.69 Type 1 diabetes mellitus with other specified complication; Z80.42 Family history of malignant neoplasm of prostate; E86.0 Dehydration; E10.22 Type 1 diabetes mellitus with diabetic chronic kidney disease; N18.30 Chronic kidney disease, stage 3 unspecified; E10.51 Type 1 diabetes mellitus with diabetic peripheral angiopathy without gangrene; E55.9 Vitamin D deficiency, unspecified; E10.65 Type 1 diabetes mellitus with hyperglycemia; I12.9 Hypertensive chronic kidney disease with stage 1 through stage 4 chronic kidney disease, or unspecified chronic kidney disease; D64.9 Anemia, unspecified; E87.5 Hyperkalemia; I95.1 Orthostatic hypotension; Z95.2 Presence of prosthetic heart valve; Z68.21 Body mass index [BMI] 21.0-21.9, adult; Z87.891 Personal history of nicotine dependence; Z82.49 Family history of ischemic heart disease and other diseases of the circulatory system; I25.2 Old myocardial infarction

== ENCOUNTER → 2020-03-25 | Outpatient (CLI) | payer MEDICARE ==
[~2020-03-25] MED LIST changes: +APRESOLINE25 MG PO; +CEFUROXIME AXE500 MG PO; +DULOXETINE HCL30 MG PO; +FLUDROCORTISON0.1 MG PO; +Lopressor25 MG PO; +MAGOX 400400 MG PO; +NORVASC10 MG PO
[2020-03-25 11:31] LABS: HEMATOCRIT 43.1 % (42.0-52.0); MEAN CELL VOLUME 85.9 fl (80.0-94.0); MEAN CORPUSCULAR HGB 26.1 pg (27.0-31.0); MEAN CORPUSCULAR HGB CONC 30.4 g/dl (33.0-37.0); PLATELET COUNT AUTOMATED 328 10*3/uL (130-400); RED BLOOD COUNT 5.02 10*6/uL (4.50-5.90); RED CELL DISTRI WIDTH 17.2 % (0-14.5); WHITE BLOOD COUNT 17.1 10*3/uL (4.8-10.8)
[2020-03-25 11:34] LABS: BILIRUBIN Negative (Negative); BLOOD Trace-Lysed (Negative); CLARITY Turbid (Clear); COLOR Yellow (Yellow); GLUCOSE 3+ (Negative); KETONE Negative (Negative); LEUKO ESTERASE 3+ (Negative); NITRITE Negative (Negative); UROBILINOGEN 0.2 E.U./dl (0.0-1.0)
[2020-03-25 11:49] LABS: TOTAL CELLS COUNTED 100 #CELLS
[2020-03-25 11:50] LABS: BURR CELLS FEW; PLATELET SUFFICIENCY NORMAL (NORMAL); SCHISTOCYTES FEW
[2020-03-25 11:51] LABS: POLYCHROMASIA SLIGHT
[2020-03-25 11:53] LABS: URINE CREATININE RANDOM 26.5 mg/dL
[2020-03-25 12:07] LABS: ALBUMIN 3.6 gm/dl (3.1-4.5); CREATININE 2.11 mg/dL (0.70-1.30); POTASSIUM 3.7 mmol/L (3.5-5.1); TOTAL PROTEIN 8.4 gm/dL (6.4-8.2); URIC ACID 4.9 mg/dL (3.5-7.2)
[2020-03-25 13:11] LABS: BACTERIA 4+; WBC TNTC wbc/hpf (0-5)
[2020-03-25 14:00] LABS: PTH INTACT 118.4 pg/mL (18.5-88.0); VITAMIN D, 25-HYDROXY 30.6 ng/mL (30-100)
[2020-03-26 14:09] LABS: PROSTATE SPECIFIC AG FREE 0.77 ng/mL; PROSTATE SPECIFIC AG, SERUM 3.4 ng/mL (0.0-4.0)
== END | disposition home or self-care (01) ==
LOC: LAB 10:59
PROVIDERS: Internal Medicine; ATTEND Internal Medicine Nephrology
DX: E11.21 Type 2 diabetes mellitus with diabetic nephropathy (principal); E21.3 Hyperparathyroidism, unspecified; N40.1 Benign prostatic hyperplasia with lower urinary tract symptoms; R35.0 Frequency of micturition; Z94.0 Kidney transplant status

== ENCOUNTER → 2020-03-31 | Outpatient (CLI) | payer MEDICARE | END | disposition home or self-care (01) | LOC: US 03-03 13:30 | PROVIDERS: ATTEND Internal Medicine | DX: I70.203 Unspecified atherosclerosis of native arteries of extremities, bilateral legs (principal) ==

== ENCOUNTER → 2020-04-25 | Outpatient (CLI) | payer MEDICARE ==
[2020-04-25 14:16] LABS: BASO # 0.1 10*3/uL (0.0-0.1); BASO % 0.6 % (0.0-1.0); EOS # 0.2 10*3/uL (0.0-0.4); EOS % 2.4 % (1.0-4.0); HEMATOCRIT 47.4 % (42.0-52.0); LYMPH # 0.7 10*3/uL (1.3-4.4); LYMPH % 7.2 % (27.0-41.0); MEAN CELL VOLUME 85.7 fl (80.0-94.0); MEAN CORPUSCULAR HGB 26.4 pg (27.0-31.0); MEAN CORPUSCULAR HGB CONC 30.8 g/dl (33.0-37.0); MEAN PLATELET VOLUME 11.5 fl (9.6-12.3); MONO % 9.7 % (3.0-9.0); NEUT % 79.7 % (47.0-73.0); PLATELET COUNT AUTOMATED 275 10*3/uL (130-400); RED BLOOD COUNT 5.53 10*6/uL (4.50-5.90); RED CELL DISTRI WIDTH 16.2 % (0-14.5); WHITE BLOOD COUNT 10.1 10*3/uL (4.8-10.8)
[2020-04-25 14:37] LABS: ALBUMIN 3.7 gm/dl (3.1-4.5); CREATININE 1.49 mg/dL (0.70-1.30); POTASSIUM 4.4 mmol/L (3.5-5.1); TOTAL PROTEIN 8.4 gm/dL (6.4-8.2); URIC ACID 4.4 mg/dL (3.5-7.2)
[2020-04-25 15:47] LABS: VITAMIN D, 25-HYDROXY 29.5 ng/mL (30-100)
[2020-04-25 15:48] LABS: PTH INTACT 100.9 pg/mL (18.5-88.0)
== END | disposition home or self-care (01) ==
LOC: LAB 13:18
PROVIDERS: ATTEND Internal Medicine Nephrology
DX: E11.21 Type 2 diabetes mellitus with diabetic nephropathy (principal); E21.3 Hyperparathyroidism, unspecified; M54.16 Radiculopathy, lumbar region; Z79.4 Long term (current) use of insulin

== ENCOUNTER 2020-05-25 11:37 | Emergency (ER) | payer MEDICARE ==
[~2020-05-25] VITALS: Wt 73.5 kg
[2020-05-25 12:24] LABS: HEMATOCRIT 38.2 % (42.0-52.0); MEAN CELL VOLUME 81.6 fl (80.0-94.0); MEAN CORPUSCULAR HGB 26.1 pg (27.0-31.0); MEAN CORPUSCULAR HGB CONC 31.9 g/dl (33.0-37.0); MEAN PLATELET VOLUME 10.9 fl (9.6-12.3); PLATELET COUNT AUTOMATED 270 10*3/uL (130-400); RED BLOOD COUNT 4.68 10*6/uL (4.50-5.90); RED CELL DISTRI WIDTH 16.3 % (0-14.5); WHITE BLOOD COUNT 20.3 10*3/uL (4.8-10.8)
[2020-05-25 12:36] LABS: ACT PARTIAL THROMBO TIME 33.3 SECONDS (20.0-32.1)
[2020-05-25 12:43] LABS: ALKALINE PHOSPHATASE 106 U/L (45-117); BUN 22 mg/dl (7-24); CHLORIDE 101 mmol/L (98-107); CREATININE 1.42 mg/dL (0.70-1.30); POTASSIUM 3.7 mmol/L (3.5-5.1); SGOT/AST 15 IU/L (3-35); SGPT/ALT 12 U/L (12-78); SODIUM 133 mmol/L (136-145)
[2020-05-25 12:46] LABS: TROPONIN I 0.526 ng/ml (<0.045)
[2020-05-25 13:06] LABS: PLATELET SUFFICIENCY NORMAL (NORMAL); SCHISTOCYTES FEW; TOTAL CELLS COUNTED 100 #CELLS
[2020-05-25 15:27] VITALS: BP 154/84
== END 2020-05-25 15:40 | disposition short-term general hospital (02) ==
LOC: ED 11:37
PROVIDERS: Emergency Medicine
DX: A41.9 Sepsis, unspecified organism (principal); I21.4 Non-ST elevation (NSTEMI) myocardial infarction; J18.9 Pneumonia, unspecified organism; I25.2 Old myocardial infarction; E10.22 Type 1 diabetes mellitus with diabetic chronic kidney disease; I13.0 Hypertensive heart and chronic kidney disease with heart failure and stage 1 through stage 4 chronic kidney disease, or unspecified chronic kidney disease; I50.9 Heart failure, unspecified; N18.30 Chronic kidney disease, stage 3 unspecified; J44.9 Chronic obstructive pulmonary disease, unspecified; E10.51 Type 1 diabetes mellitus with diabetic peripheral angiopathy without gangrene; Z94.0 Kidney transplant status; Z91.018 Allergy to other foods; Z79.2 Long term (current) use of antibiotics; Z79.899 Other long term (current) drug therapy; Z79.82 Long term (current) use of aspirin; Z79.4 Long term (current) use of insulin; Z98.890 Other specified postprocedural states; Z87.891 Personal history of nicotine dependence

== ENCOUNTER 2020-06-29 16:09 | Emergency (ER) | payer MEDICARE ==
[~2020-06-29] VITALS: Wt 75.7 kg
[2020-06-29 16:44] LABS: BASO % 0.4 % (0.0-1.0); EOS # 0.3 10*3/uL (0.0-0.4); EOS % 2.6 % (1.0-4.0); HEMATOCRIT 44.2 % (42.0-52.0); LYMPH # 1.2 10*3/uL (1.3-4.4); LYMPH % 12.4 % (27.0-41.0); MEAN CELL VOLUME 82.3 fl (80.0-94.0); MEAN CORPUSCULAR HGB 25.5 pg (27.0-31.0); MEAN PLATELET VOLUME 11.5 fl (9.6-12.3); MONO # 0.8 10*3/uL (0.1-1.0); MONO % 8.7 % (3.0-9.0); NEUT # 7.3 10*3/uL (2.3-7.9); NEUT % 75.5 % (47.0-73.0); PLATELET COUNT AUTOMATED 262 10*3/uL (130-400); RED BLOOD COUNT 5.37 10*6/uL (4.50-5.90); RED CELL DISTRI WIDTH 16.7 % (0-14.5); WHITE BLOOD COUNT 9.6 10*3/uL (4.8-10.8)
[2020-06-29 16:58] LABS: ACT PARTIAL THROMBO TIME 22.4 SECONDS (20.0-32.1)
[2020-06-29 17:10] LABS: ALBUMIN 3.8 gm/dl (3.1-4.5); CREATININE 2.91 mg/dL (0.70-1.30); POTASSIUM 4.6 mmol/L (3.5-5.1); TOTAL PROTEIN 8.7 gm/dL (6.4-8.2)
[2020-06-29 17:11] LABS: TROPONIN I 0.027 ng/ml (<0.045)
[2020-06-29 18:14] VITALS: BP 94/49
== END 2020-06-29 19:00 | disposition short-term general hospital (02) ==
LOC: ED 16:09
PROVIDERS: Emergency Medicine
DX: N17.9 Acute kidney failure, unspecified (principal); R07.89 Other chest pain; J44.9 Chronic obstructive pulmonary disease, unspecified; E10.22 Type 1 diabetes mellitus with diabetic chronic kidney disease; I13.0 Hypertensive heart and chronic kidney disease with heart failure and stage 1 through stage 4 chronic kidney disease, or unspecified chronic kidney disease; N18.30 Chronic kidney disease, stage 3 unspecified; I50.9 Heart failure, unspecified; E10.51 Type 1 diabetes mellitus with diabetic peripheral angiopathy without gangrene; I25.2 Old myocardial infarction; Z94.0 Kidney transplant status; Z95.5 Presence of coronary angioplasty implant and graft; Z91.018 Allergy to other foods; Z79.2 Long term (current) use of antibiotics; Z79.899 Other long term (current) drug therapy; Z79.4 Long term (current) use of insulin; Z79.82 Long term (current) use of aspirin; Z98.890 Other specified postprocedural states; Z87.891 Personal history of nicotine dependence

== ENCOUNTER → 2020-07-24 | Outpatient (CLI) | payer MEDICARE ==
[2020-07-24 10:29] LABS: BASO # 0.1 10*3/uL (0.0-0.1); BASO % 0.8 % (0.0-1.0); EOS # 0.4 10*3/uL (0.0-0.4); EOS % 4.6 % (1.0-4.0); HEMATOCRIT 40.7 % (42.0-52.0); LYMPH # 1.2 10*3/uL (1.3-4.4); LYMPH % 13.3 % (27.0-41.0); MEAN CELL VOLUME 83.2 fl (80.0-94.0); MEAN CORPUSCULAR HGB 25.8 pg (27.0-31.0); MEAN PLATELET VOLUME 10.8 fl (9.6-12.3); MONO # 0.8 10*3/uL (0.1-1.0); MONO % 9.2 % (3.0-9.0); NEUT # 6.4 10*3/uL (2.3-7.9); NEUT % 71.8 % (47.0-73.0); PLATELET COUNT AUTOMATED 314 10*3/uL (130-400); RED BLOOD COUNT 4.89 10*6/uL (4.50-5.90); RED CELL DISTRI WIDTH 17.7 % (0-14.5); WHITE BLOOD COUNT 8.9 10*3/uL (4.8-10.8)
[2020-07-24 10:59] LABS: ALBUMIN 3.7 gm/dl (3.1-4.5); CREATININE 2.95 mg/dL (0.70-1.30); POTASSIUM 4.4 mmol/L (3.5-5.1); TOTAL PROTEIN 7.7 gm/dL (6.4-8.2); URIC ACID 7.3 mg/dL (3.5-7.2)
[2020-07-24 13:30] LABS: VITAMIN D, 25-HYDROXY 29.3 ng/mL (30-100)
[2020-07-24 13:31] LABS: PTH INTACT 147.5 pg/mL (18.5-88.0)
== END | disposition home or self-care (01) ==
LOC: LAB 09:40
PROVIDERS: ATTEND Internal Medicine Nephrology
DX: E11.21 Type 2 diabetes mellitus with diabetic nephropathy (principal); E21.3 Hyperparathyroidism, unspecified; Z94.0 Kidney transplant status

== ENCOUNTER → 2020-07-28 | Outpatient (CLI) | payer MEDICARE ==
[2020-07-28 10:41] LABS: BASO # 0.1 10*3/uL (0.0-0.1); BASO % 0.8 % (0.0-1.0); EOS # 0.4 10*3/uL (0.0-0.4); LYMPH # 0.9 10*3/uL (1.3-4.4); LYMPH % 10.4 % (27.0-41.0); MEAN CORPUSCULAR HGB 25.6 pg (27.0-31.0); MEAN CORPUSCULAR HGB CONC 31.3 g/dl (33.0-37.0); MEAN PLATELET VOLUME 11.3 fl (9.6-12.3); MONO # 0.9 10*3/uL (0.1-1.0); MONO % 10.3 % (3.0-9.0); NEUT # 6.5 10*3/uL (2.3-7.9); NEUT % 74.2 % (47.0-73.0); PLATELET COUNT AUTOMATED 295 10*3/uL (130-400); RED BLOOD COUNT 4.88 10*6/uL (4.50-5.90); RED CELL DISTRI WIDTH 17.3 % (0-14.5); WHITE BLOOD COUNT 8.7 10*3/uL (4.8-10.8)
[2020-07-28 11:12] LABS: ALBUMIN 3.6 gm/dl (3.1-4.5); CREATININE 3.5 mg/dL (0.70-1.30); POTASSIUM 4.6 mmol/L (3.5-5.1); URIC ACID 7.8 mg/dL (3.5-7.2)
[2020-07-28 11:14] LABS: TOTAL PROTEIN 7.8 gm/dL (6.4-8.2)
[2020-07-28 11:45] LABS: PTH INTACT 166.9 pg/mL (18.5-88.0); VITAMIN D, 25-HYDROXY 25.4 ng/mL (30-100)
[2020-07-28 14:59] LABS: BILIRUBIN Negative (Negative); BLOOD Negative (Negative); CLARITY Clear (Clear); COLOR Yellow (Yellow); GLUCOSE 2+ (Negative); KETONE Negative (Negative); LEUKO ESTERASE Negative (Negative); NITRITE Negative (Negative); PH 6.5 (4.5-8.0); UROBILINOGEN 0.2 E.U./dl (0.0-1.0)
[2020-07-28 15:06] LABS: URINE CREATININE RANDOM 56.7 mg/dL
[2020-07-28 16:17] LABS: EPITHELIAL CELLS 0-2; HYALINE CAST 0-2; WBC 0-2 wbc/hpf (0-5)
== END | disposition home or self-care (01) ==
LOC: LAB 10:01
PROVIDERS: ATTEND Internal Medicine Nephrology
DX: E11.21 Type 2 diabetes mellitus with diabetic nephropathy (principal); E21.3 Hyperparathyroidism, unspecified; Z94.0 Kidney transplant status

== ENCOUNTER → 2020-08-11 | Outpatient (CLI) | payer MEDICARE ==
[2020-08-11 11:28] LABS: BASO # 0.1 10*3/uL (0.0-0.1); BASO % 0.8 % (0.0-1.0); EOS # 0.4 10*3/uL (0.0-0.4); EOS % 4.2 % (1.0-4.0); HEMATOCRIT 42.6 % (42.0-52.0); LYMPH # 0.8 10*3/uL (1.3-4.4); LYMPH % 8.8 % (27.0-41.0); MEAN CELL VOLUME 82.6 fl (80.0-94.0); MEAN CORPUSCULAR HGB 25.6 pg (27.0-31.0); MEAN PLATELET VOLUME 10.9 fl (9.6-12.3); MONO # 0.8 10*3/uL (0.1-1.0); MONO % 8.8 % (3.0-9.0); NEUT # 7.1 10*3/uL (2.3-7.9); PLATELET COUNT AUTOMATED 290 10*3/uL (130-400); RED BLOOD COUNT 5.16 10*6/uL (4.50-5.90); RED CELL DISTRI WIDTH 17.2 % (0-14.5); WHITE BLOOD COUNT 9.2 10*3/uL (4.8-10.8)
[2020-08-11 11:39] LABS: BILIRUBIN Negative (Negative); BLOOD Negative (Negative); CLARITY Clear (Clear); COLOR Yellow (Yellow); GLUCOSE Trace (Negative); KETONE Negative (Negative); LEUKO ESTERASE Negative (Negative); NITRITE Negative (Negative); UROBILINOGEN 0.2 E.U./dl (0.0-1.0)
[2020-08-11 11:45] LABS: URINE CREATININE RANDOM 38.5 mg/dL
[2020-08-11 11:58] LABS: ALBUMIN 3.3 gm/dl (3.1-4.5); CREATININE 2.28 mg/dL (0.70-1.30); TOTAL PROTEIN 7.8 gm/dL (6.4-8.2); URIC ACID 6.7 mg/dL (3.5-7.2)
[2020-08-11 12:00] LABS: EPITHELIAL CELLS 0-2
[2020-08-11 12:19] LABS: PTH INTACT 84.9 pg/mL (18.5-88.0); VITAMIN D, 25-HYDROXY 28.2 ng/mL (30-100)
== END | disposition home or self-care (01) ==
LOC: LAB 10:57
PROVIDERS: ATTEND Internal Medicine Nephrology
DX: E11.21 Type 2 diabetes mellitus with diabetic nephropathy (principal); E21.3 Hyperparathyroidism, unspecified; Z94.0 Kidney transplant status

== ENCOUNTER → 2020-09-12 | Outpatient (CLI) | payer MEDICARE ==
[2020-09-12 11:04] LABS: BASO # 0.1 10*3/uL (0.0-0.1); BASO % 0.4 % (0.0-1.0); EOS # 0.3 10*3/uL (0.0-0.4); EOS % 1.9 % (1.0-4.0); HEMATOCRIT 44.4 % (42.0-52.0); LYMPH # 0.9 10*3/uL (1.3-4.4); LYMPH % 6.6 % (27.0-41.0); MEAN CELL VOLUME 81.5 fl (80.0-94.0); MEAN CORPUSCULAR HGB 25.7 pg (27.0-31.0); MEAN CORPUSCULAR HGB CONC 31.5 g/dl (33.0-37.0); MEAN PLATELET VOLUME 11.4 fl (9.6-12.3); MONO # 1.3 10*3/uL (0.1-1.0); MONO % 9.3 % (3.0-9.0); NEUT # 10.8 10*3/uL (2.3-7.9); PLATELET COUNT AUTOMATED 319 10*3/uL (130-400); RED BLOOD COUNT 5.45 10*6/uL (4.50-5.90); RED CELL DISTRI WIDTH 16.4 % (0-14.5); WHITE BLOOD COUNT 13.4 10*3/uL (4.8-10.8)
[2020-09-12 11:16] LABS: BILIRUBIN Negative (Negative); BLOOD Negative (Negative); CLARITY Clear (Clear); COLOR Yellow (Yellow); GLUCOSE Trace (Negative); KETONE Negative (Negative); LEUKO ESTERASE Negative (Negative); NITRITE Negative (Negative); PH 5.5 (4.5-8.0); SPECIFIC GRAVITY <= 1.005 (1.001-1.030); UROBILINOGEN 0.2 E.U./dl (0.0-1.0)
[2020-09-12 11:32] LABS: ALBUMIN 3.5 gm/dl (3.1-4.5); CREATININE 2.52 mg/dL (0.70-1.30); POTASSIUM 4.2 mmol/L (3.5-5.1); TOTAL PROTEIN 7.5 gm/dL (6.4-8.2); URIC ACID 7.4 mg/dL (3.5-7.2)
[2020-09-12 11:35] LABS: RBC 0-2 rbc/hpf (0-2); WBC 0-2 wbc/hpf (0-5)
== END | disposition home or self-care (01) ==
LOC: LAB 10:37
PROVIDERS: ATTEND Internal Medicine Nephrology
DX: E11.21 Type 2 diabetes mellitus with diabetic nephropathy (principal); E21.3 Hyperparathyroidism, unspecified; Z94.0 Kidney transplant status

== ENCOUNTER → 2020-09-30 | Outpatient (CLI) | payer MEDICARE ==
[2020-09-30 09:39] LABS: BASO # 0.1 10*3/uL (0.0-0.1); BASO % 0.7 % (0.0-1.0); EOS # 0.4 10*3/uL (0.0-0.4); HEMATOCRIT 40.5 % (42.0-52.0); LYMPH # 0.9 10*3/uL (1.3-4.4); LYMPH % 8.6 % (27.0-41.0); MEAN CELL VOLUME 83.9 fl (80.0-94.0); MEAN CORPUSCULAR HGB 26.1 pg (27.0-31.0); MEAN CORPUSCULAR HGB CONC 31.1 g/dl (33.0-37.0); MEAN PLATELET VOLUME 10.8 fl (9.6-12.3); MONO # 0.9 10*3/uL (0.1-1.0); MONO % 8.6 % (3.0-9.0); NEUT % 77.7 % (47.0-73.0); PLATELET COUNT AUTOMATED 274 10*3/uL (130-400); RED BLOOD COUNT 4.83 10*6/uL (4.50-5.90); RED CELL DISTRI WIDTH 16.1 % (0-14.5); WHITE BLOOD COUNT 10.3 10*3/uL (4.8-10.8)
[2020-09-30 09:41] LABS: BILIRUBIN Negative (Negative); BLOOD Negative (Negative); CLARITY Clear (Clear); COLOR Yellow (Yellow); GLUCOSE 1+ (Negative); KETONE Negative (Negative); LEUKO ESTERASE Negative (Negative); NITRITE Negative (Negative); PH 5.5 (4.5-8.0); UROBILINOGEN 0.2 E.U./dl (0.0-1.0)
[2020-09-30 09:53] LABS: ALBUMIN 3.4 gm/dl (3.1-4.5); CREATININE 2.52 mg/dL (0.70-1.30); POTASSIUM 4.5 mmol/L (3.5-5.1); TOTAL PROTEIN 7.5 gm/dL (6.4-8.2); URIC ACID 7.3 mg/dL (3.5-7.2)
[2020-09-30 10:02] LABS: RBC 0-2 rbc/hpf (0-2)
[2020-09-30 10:03] LABS: EPITHELIAL CELLS 0-2; WBC 0-2 wbc/hpf (0-5)
[2020-09-30 10:04] LABS: BACTERIA TRACE
[2020-09-30 10:57] LABS: PTH INTACT 117.6 pg/mL (18.5-88.0); VITAMIN D, 25-HYDROXY 28.6 ng/mL (30-100)
== END | disposition home or self-care (01) ==
LOC: LAB 09:03
PROVIDERS: ATTEND Internal Medicine Nephrology
DX: E11.21 Type 2 diabetes mellitus with diabetic nephropathy (principal); E21.3 Hyperparathyroidism, unspecified; Z94.0 Kidney transplant status

== ENCOUNTER → 2020-11-14 | Outpatient (CLI) | payer MEDICARE | END | disposition home or self-care (01) | LOC: COVID19 16:34 | PROVIDERS: ATTEND Internal Medicine | DX: Z11.52 Encounter for screening for COVID-19 (principal) ==

== ENCOUNTER → 2020-11-21 | Outpatient (CLI) | payer MEDICARE ==
[2020-11-21 11:18] LABS: BASO # 0.1 10*3/uL (0.0-0.1); BASO % 0.6 % (0.0-1.0); EOS # 0.5 10*3/uL (0.0-0.4); EOS % 4.3 % (1.0-4.0); HEMATOCRIT 37.4 % (42.0-52.0); LYMPH # 0.6 10*3/uL (1.3-4.4); MEAN CELL VOLUME 81.5 fl (80.0-94.0); MEAN CORPUSCULAR HGB 25.5 pg (27.0-31.0); MEAN CORPUSCULAR HGB CONC 31.3 g/dl (33.0-37.0); MEAN PLATELET VOLUME 10.9 fl (9.6-12.3); MONO # 0.9 10*3/uL (0.1-1.0); MONO % 7.4 % (3.0-9.0); NEUT # 10.1 10*3/uL (2.3-7.9); NEUT % 82.3 % (47.0-73.0); PLATELET COUNT AUTOMATED 253 10*3/uL (130-400); RED BLOOD COUNT 4.59 10*6/uL (4.50-5.90); WHITE BLOOD COUNT 12.3 10*3/uL (4.8-10.8)
[2020-11-21 11:26] LABS: BILIRUBIN Negative (Negative); BLOOD Negative (Negative); CLARITY Clear (Clear); COLOR Yellow (Yellow); GLUCOSE Negative (Negative); KETONE Negative (Negative); LEUKO ESTERASE Negative (Negative); NITRITE Negative (Negative); PH 5.5 (4.5-8.0); UROBILINOGEN 0.2 E.U./dl (0.0-1.0)
[2020-11-21 11:33] LABS: URINE CREATININE RANDOM 61.5 mg/dL
[2020-11-21 11:36] LABS: ALBUMIN 3.4 gm/dl (3.1-4.5); CREATININE 2.83 mg/dL (0.70-1.30); POTASSIUM 5.1 mmol/L (3.5-5.1); URIC ACID 8.5 mg/dL (3.5-7.2)
[2020-11-21 11:40] LABS: TOTAL PROTEIN 7.4 gm/dL (6.4-8.2)
[2020-11-21 11:51] LABS: BACTERIA TRACE; EPITHELIAL CELLS 0-2; RBC 0-2 rbc/hpf (0-2)
[2020-11-21 12:14] LABS: PTH INTACT 78.2 pg/mL (18.5-88.0)
== END | disposition home or self-care (01) ==
LOC: LAB 10:56
PROVIDERS: ATTEND Internal Medicine Nephrology
DX: E21.3 Hyperparathyroidism, unspecified (principal); E11.21 Type 2 diabetes mellitus with diabetic nephropathy

== ENCOUNTER → 2020-12-22 | Day surgery (SDC) | payer MEDICARE ==
[~2020-12-22] VITALS: Ht 177.8 cm; Wt 72.6 kg
[~2020-12-22] MED LIST changes: +CALCIUM ACETAT667 MG PO; +COREG12.5 M1 PO; +ISOSORBIDE DINI30 MG PO; +LIPITOR40 MG PO; +NITROSTAT0.4 MG SL; +PANTOPRAZOLE SO40 MG PO; +RANEXA500 M1 PO
[2020-12-22 09:22] VITALS: BP 186/77
[2020-12-22 11:55] VITALS: BP 143/62
[2020-12-22 12:10] VITALS: BP 162/73
[2020-12-22 12:25] VITALS: BP 171/67
== END | disposition home or self-care (01) ==
LOC: SDC 12-18 09:30
PROVIDERS: ATTEND Surgery
DX: D48.5 Neoplasm of uncertain behavior of skin (principal); I10 Essential (primary) hypertension; E03.9 Hypothyroidism, unspecified; I25.2 Old myocardial infarction; E11.40 Type 2 diabetes mellitus with diabetic neuropathy, unspecified; J44.9 Chronic obstructive pulmonary disease, unspecified; F17.210 Nicotine dependence, cigarettes, uncomplicated; Z95.5 Presence of coronary angioplasty implant and graft; Z79.899 Other long term (current) drug therapy; Z20.822 Contact with and (suspected) exposure to COVID-19

== ENCOUNTER → 2021-01-06 | Outpatient (CLI) | payer MEDICARE ==
[2021-01-06 10:32] LABS: BASO # 0.1 10*3/uL (0.0-0.1); BASO % 0.9 % (0.0-1.0); EOS # 0.5 10*3/uL (0.0-0.4); EOS % 4.6 % (1.0-4.0); HEMATOCRIT 32.5 % (42.0-52.0); LYMPH # 1.3 10*3/uL (1.3-4.4); LYMPH % 10.9 % (27.0-41.0); MEAN CORPUSCULAR HGB 26.4 pg (27.0-31.0); MEAN CORPUSCULAR HGB CONC 31.4 g/dl (33.0-37.0); MEAN PLATELET VOLUME 10.7 fl (9.6-12.3); MONO # 0.9 10*3/uL (0.1-1.0); NEUT # 8.8 10*3/uL (2.3-7.9); NEUT % 75.2 % (47.0-73.0); PLATELET COUNT AUTOMATED 276 10*3/uL (130-400); RED BLOOD COUNT 3.87 10*6/uL (4.50-5.90); RED CELL DISTRI WIDTH 17.6 % (0-14.5); WHITE BLOOD COUNT 11.7 10*3/uL (4.8-10.8)
[2021-01-06 10:39] LABS: LIPASE 15 U/L (73-393)
[2021-01-06 10:45] LABS: ALBUMIN 3.5 gm/dl (3.1-4.5); CREATININE 5.4 mg/dL (0.70-1.30); POTASSIUM 4.1 mmol/L (3.5-5.1); TOTAL PROTEIN 7.7 gm/dL (6.4-8.2); URIC ACID 8.9 mg/dL (3.5-7.2)
[2021-01-06 10:46] LABS: ACT PARTIAL THROMBO TIME 26.8 SECONDS (20.0-32.1); INTERNATIONAL NORM RATIO 1.1 (2.0-3.5)
[2021-01-06 11:22] LABS: PTH INTACT 86.2 pg/mL (18.5-88.0); VITAMIN D, 25-HYDROXY 22.3 ng/mL (30-100)
== END | disposition home or self-care (01) ==
LOC: LAB 09:43
PROVIDERS: Internal Medicine Nephrology; ATTEND Nurse Practitioner Family
DX: I13.0 Hypertensive heart and chronic kidney disease with heart failure and stage 1 through stage 4 chronic kidney disease, or unspecified chronic kidney disease (principal); E11.22 Type 2 diabetes mellitus with diabetic chronic kidney disease; I50.9 Heart failure, unspecified; N18.9 Chronic kidney disease, unspecified; K80.20 Calculus of gallbladder without cholecystitis without obstruction; E11.21 Type 2 diabetes mellitus with diabetic nephropathy; E21.3 Hyperparathyroidism, unspecified; Z94.0 Kidney transplant status

== ENCOUNTER → 2021-01-20 | Outpatient (CLI) | payer MEDICARE ==
[2021-01-20 11:11] LABS: BASO # 0.1 10*3/uL (0.0-0.1); BASO % 0.7 % (0.0-1.0); EOS # 0.5 10*3/uL (0.0-0.4); EOS % 4.7 % (1.0-4.0); HEMATOCRIT 33.3 % (42.0-52.0); LYMPH # 0.7 10*3/uL (1.3-4.4); LYMPH % 6.2 % (27.0-41.0); MEAN CELL VOLUME 84.1 fl (80.0-94.0); MEAN CORPUSCULAR HGB CONC 32.1 g/dl (33.0-37.0); MEAN PLATELET VOLUME 10.6 fl (9.6-12.3); MONO # 0.9 10*3/uL (0.1-1.0); MONO % 8.1 % (3.0-9.0); NEUT # 8.9 10*3/uL (2.3-7.9); NEUT % 79.9 % (47.0-73.0); PLATELET COUNT AUTOMATED 259 10*3/uL (130-400); RED BLOOD COUNT 3.96 10*6/uL (4.50-5.90); RED CELL DISTRI WIDTH 17.2 % (0-14.5); WHITE BLOOD COUNT 11.1 10*3/uL (4.8-10.8)
[2021-01-20 11:40] LABS: ALBUMIN 3.5 gm/dl (3.1-4.5); CREATININE 4.35 mg/dL (0.70-1.30); POTASSIUM 4.4 mmol/L (3.5-5.1)
== END | disposition home or self-care (01) ==
LOC: LAB 10:51
PROVIDERS: ATTEND Internal Medicine
DX: I50.33 Acute on chronic diastolic (congestive) heart failure (principal)

== ENCOUNTER → 2021-01-23 | Outpatient (CLI) | payer MEDICARE ==
[~2021-01-23] MED LIST changes: +ASPIRIN CHEWABL81 MG PO; +KLOR-CON 1010 ME1 PO; +OXYCODONE HCL10 M1 PO; +TRELEGY ELLIPT1 EACH INH
== END | disposition home or self-care (01) ==
LOC: US 00:45
PROVIDERS: ATTEND Internal Medicine
DX: K80.50 Calculus of bile duct without cholangitis or cholecystitis without obstruction (principal)

== ENCOUNTER → 2021-01-25 | Outpatient (CLI) | payer MEDICARE ==
[~2021-01-25] MED LIST changes: -ASPIRIN CHEWABL81 MG PO; -KLOR-CON 1010 ME1 PO; -OXYCODONE HCL10 M1 PO; -TRELEGY ELLIPT1 EACH INH
[2021-01-25 10:37] LABS: CREATININE 4.2 mg/dL (0.70-1.30); POTASSIUM 4.5 mmol/L (3.5-5.1)
== END | disposition home or self-care (01) ==
LOC: LAB 09:48
PROVIDERS: ATTEND Internal Medicine
DX: N18.30 Chronic kidney disease, stage 3 unspecified (principal)

== ENCOUNTER → 2021-05-25 | Outpatient (CLI) | payer MEDICARE ==
[~2021-05-25] MED LIST changes: +ASPIRIN CHEWABL81 MG PO; +KLOR-CON 1010 ME1 PO; +OXYCODONE HCL10 M1 PO; +TRELEGY ELLIPT1 EACH INH
[2021-05-25 12:08] LABS: BASO # 0.1 10*3/uL (0.0-0.1); BASO % 0.7 % (0.0-1.0); EOS # 0.6 10*3/uL (0.0-0.4); HEMATOCRIT 28.8 % (42.0-52.0); LYMPH # 0.8 10*3/uL (1.3-4.4); MEAN CELL VOLUME 87.3 fl (80.0-94.0); MEAN CORPUSCULAR HGB 27.6 pg (27.0-31.0); MEAN CORPUSCULAR HGB CONC 31.6 g/dl (33.0-37.0); MEAN PLATELET VOLUME 9.8 fl (9.6-12.3); MONO # 0.8 10*3/uL (0.1-1.0); MONO % 7.6 % (3.0-9.0); NEUT # 8.8 10*3/uL (2.3-7.9); NEUT % 79.2 % (47.0-73.0); PLATELET COUNT AUTOMATED 332 10*3/uL (130-400); RED CELL DISTRI WIDTH 15.9 % (0-14.5); WHITE BLOOD COUNT 11.1 10*3/uL (4.8-10.8)
[2021-05-25 12:11] LABS: BILIRUBIN Negative (Negative); BLOOD Negative (Negative); CLARITY Clear (Clear); COLOR Yellow (Yellow); GLUCOSE Negative (Negative); KETONE Negative (Negative); LEUKO ESTERASE Trace (Negative); NITRITE Negative (Negative); UROBILINOGEN 0.2 E.U./dl (0.0-1.0)
[2021-05-25 12:17] LABS: URINE CREATININE RANDOM 51.2 mg/dL
[2021-05-25 12:26] LABS: CREATININE 1.55 mg/dL (0.70-1.30); TOTAL PROTEIN 7.2 gm/dL (6.4-8.2)
[2021-05-25 12:32] LABS: BACTERIA 1+; EPITHELIAL CELLS 0-2; MUCOUS 1+; WBC 16-20 wbc/hpf (0-5); YEAST 1+
[2021-05-25 12:47] LABS: VITAMIN D, 25-HYDROXY 34.3 ng/mL (30-100)
== END | disposition home or self-care (01) ==
LOC: LAB 11:33
PROVIDERS: ATTEND Internal Medicine Nephrology
DX: E21.3 Hyperparathyroidism, unspecified (principal); E11.21 Type 2 diabetes mellitus with diabetic nephropathy; Z94.0 Kidney transplant status

== ENCOUNTER 2021-05-30 16:02 | Emergency (ER) | payer MEDICARE ==
[~2021-05-30] VITALS: Wt 66.0 kg
[2021-05-30 16:28] LABS: HEMATOCRIT 29.8 % (42.0-52.0); MEAN CELL VOLUME 87.1 fl (80.0-94.0); MEAN CORPUSCULAR HGB 26.6 pg (27.0-31.0); MEAN CORPUSCULAR HGB CONC 30.5 g/dl (33.0-37.0); MEAN PLATELET VOLUME 10.2 fl (9.6-12.3); PLATELET COUNT AUTOMATED 358 10*3/uL (130-400); RED BLOOD COUNT 3.42 10*6/uL (4.50-5.90); RED CELL DISTRI WIDTH 15.9 % (0-14.5); WHITE BLOOD COUNT 28.5 10*3/uL (4.8-10.8)
[2021-05-30 16:29] LABS: MANUAL DIFF REFLEX YES
[2021-05-30 16:38] LABS: ACT PARTIAL THROMBO TIME 35.7 SECONDS (20.0-32.1); INTERNATIONAL NORM RATIO 1.2 (2.0-3.5)
[2021-05-30 16:43] LABS: CREATININE 2.42 mg/dL (0.70-1.30); POTASSIUM 4.9 mmol/L (3.5-5.1); TOTAL PROTEIN 7.6 gm/dL (6.4-8.2)
[2021-05-30 16:55] LABS: ABG BASE EXCESS -3.4 mmol/L (-2.0-2.0); ARTERIAL BLOOD GAS PH 7.318 (7.35-7.45)
[2021-05-30 16:57] LABS: ARTERIAL BLOOD GAS PO2 35.2 (80-90)
[2021-05-30 16:58] LABS: PLATELET SUFFICIENCY NORMAL (NORMAL); TOTAL CELLS COUNTED 100 #CELLS
[2021-05-30 16:59] LABS: BURR CELLS MODERATE; POLYCHROMASIA SLIGHT
[2021-05-30 19:34] LABS: ABG BASE EXCESS -1.6 mmol/L (-2.0-2.0); ARTERIAL BLOOD GAS PH 7.401 (7.35-7.45)
[2021-05-30 23:09] LABS: CREATININE 1.99 mg/dL (0.70-1.30); POTASSIUM 4.7 mmol/L (3.5-5.1)
[2021-05-31 05:52] LABS: CREATININE 1.69 mg/dL (0.70-1.30); POTASSIUM 5.4 mmol/L (3.5-5.1)
[2021-05-31 09:29] LABS: ABG BASE EXCESS -4.1 mmol/L (-2.0-2.0); ARTERIAL BLOOD GAS PH 7.274 (7.35-7.45); ARTERIAL BLOOD GAS PO2 75.1 (80-90)
[2021-05-31 10:15] VITALS: BP 176/78
== END 2021-05-31 10:45 | disposition short-term general hospital (02) ==
LOC: ED 16:02
PROVIDERS: Emergency Medicine; Internal Medicine; Physician Assistant Medical
DX: J96.90 Respiratory failure, unspecified, unspecified whether with hypoxia or hypercapnia (principal); I50.9 Heart failure, unspecified; E44.0 Moderate protein-calorie malnutrition; E11.10 Type 2 diabetes mellitus with ketoacidosis without coma; N17.9 Acute kidney failure, unspecified; Z79.899 Other long term (current) drug therapy; Z79.82 Long term (current) use of aspirin; Z98.890 Other specified postprocedural states; Z87.891 Personal history of nicotine dependence

== ENCOUNTER 2021-07-02 16:27 | Emergency (ER) | payer MEDICARE ==
[~2021-07-02] VITALS: Ht 177.8 cm; Wt 76.9 kg
[2021-07-02 17:12] LABS: BASO # 0.1 10*3/uL (0.0-0.1); BASO % 0.5 % (0.0-1.0); EOS # 0.3 10*3/uL (0.0-0.4); EOS % 1.8 % (1.0-4.0); HEMATOCRIT 25.4 % (42.0-52.0); LYMPH # 0.4 10*3/uL (1.3-4.4); LYMPH % 2.2 % (27.0-41.0); MEAN CELL VOLUME 84.9 fl (80.0-94.0); MEAN CORPUSCULAR HGB 27.1 pg (27.0-31.0); MEAN CORPUSCULAR HGB CONC 31.9 g/dl (33.0-37.0); MEAN PLATELET VOLUME 10.2 fl (9.6-12.3); MONO # 1.1 10*3/uL (0.1-1.0); MONO % 5.5 % (3.0-9.0); NEUT # 17.2 10*3/uL (2.3-7.9); NEUT % 89.5 % (47.0-73.0); PLATELET COUNT AUTOMATED 232 10*3/uL (130-400); RED BLOOD COUNT 2.99 10*6/uL (4.50-5.90); RED CELL DISTRI WIDTH 18.4 % (0-14.5); WHITE BLOOD COUNT 19.2 10*3/uL (4.8-10.8)
[2021-07-02 17:23] LABS: ACT PARTIAL THROMBO TIME 29.7 SECONDS (20.0-32.1); INTERNATIONAL NORM RATIO 1.1 (2.0-3.5)
[2021-07-02 17:44] LABS: CREATININE 2.29 mg/dL (0.70-1.30); POTASSIUM 4.7 mmol/L (3.5-5.1)
[2021-07-02] MEDS ORDERED: OXYCODONE5 M1 PO (22:09)
[2021-07-02] MEDS ORDERED: ISOSORBIDE MONO10 MG PO (22:10)
[2021-07-02] MEDS ORDERED: CLOPIDOGREL75 MG PO (22:11)
[2021-07-02] MEDS ORDERED: LEVOTHYROXINE88 MCG PO (22:12)
[2021-07-03 07:30] VITALS: BP 124/48
[2021-07-03 07:53] LABS: ARTERIAL BLOOD GAS PH 7.235 (7.35-7.45); ARTERIAL BLOOD GAS PO2 114.3 (80-90)
[2021-07-03 08:26] VITALS: BP 130/55
== END 2021-07-03 09:04 | disposition short-term general hospital (02) ==
LOC: ED 16:27
PROVIDERS: Emergency Medicine
DX: J96.01 Acute respiratory failure with hypoxia (principal); J18.9 Pneumonia, unspecified organism; I50.9 Heart failure, unspecified; R60.0 Localized edema; Z79.899 Other long term (current) drug therapy; Z79.2 Long term (current) use of antibiotics; Z79.4 Long term (current) use of insulin; Z79.82 Long term (current) use of aspirin; Z98.890 Other specified postprocedural states; Z94.0 Kidney transplant status; Z95.5 Presence of coronary angioplasty implant and graft; Z87.891 Personal history of nicotine dependence

== ENCOUNTER 2021-07-15 10:36 | Inpatient (IN) | payer MEDICARE ==
[~2021-07-15] VITALS: Ht 170.1 cm; Wt 62.9 kg
[~2021-07-15 10:36] MED LIST changes: +CLOPIDOGREL75 MG PO; +HYDRALAZINE HC100 MG PO; +ISOSORBIDE MONO10 MG PO; +LEVOTHYROXINE88 MCG PO; +NEURONTIN100 MG PO; +OXYCODONE5 M1 PO; +PROGRAF1 M1 PO
[2021-07-15 10:44] VITALS: BP 134/58
[2021-07-15 10:59] LABS: HEMATOCRIT 26.8 % (42.0-52.0); MEAN CELL VOLUME 89.6 fl (80.0-94.0); MEAN CORPUSCULAR HGB 27.8 pg (27.0-31.0); MEAN PLATELET VOLUME 10.4 fl (9.6-12.3); PLATELET COUNT AUTOMATED 442 10*3/uL (130-400); RED BLOOD COUNT 2.99 10*6/uL (4.50-5.90); RED CELL DISTRI WIDTH 17.5 % (0-14.5); WHITE BLOOD COUNT 33.5 10*3/uL (4.8-10.8)
[2021-07-15 11:00] LABS: MANUAL DIFF REFLEX YES
[2021-07-15 11:15] LABS: CREATININE 3.94 mg/dL (0.70-1.30); TOTAL PROTEIN 6.8 gm/dL (6.4-8.2)
[2021-07-15 11:22] LABS: PLATELET SUFFICIENCY HIGH (NORMAL); POLYCHROMASIA SLIGHT; SCHISTOCYTES FEW; TOTAL CELLS COUNTED 100 #CELLS
[2021-07-15 12:02] VITALS: BP 136/42
[2021-07-15 14:08] LABS: CREATININE 4.02 mg/dL (0.70-1.30); TOTAL PROTEIN 6.5 gm/dL (6.4-8.2)
[2021-07-15 14:09] LABS: POTASSIUM 4.7 mmol/L (3.5-5.1)
[2021-07-15 14:57] VITALS: BP 142/52
[2021-07-15] MEDS ORDERED: TACROLIMUS1 M1 PO (16:09)
[2021-07-15 16:10] VITALS: BP 120/52
[2021-07-15] MEDS ORDERED: NORVASC5 MG PO (16:11)
[2021-07-15 17:34] LABS: CREATININE 3.71 mg/dL (0.70-1.30); POTASSIUM 4.8 mmol/L (3.5-5.1)
[2021-07-15] MEDS ORDERED: BACTRIM (18:14)
[2021-07-15] MEDS ORDERED: VITAMIN C500 M8 PO (18:16)
[2021-07-15] MEDS ORDERED: CALCIUM CARBON500 M3 PO (18:18)
[2021-07-15] MEDS ORDERED: HUMULIN R100 UNIT/1 IJ (18:30)
[2021-07-15] MEDS ORDERED: Ipratropium Brom3 ML INH (18:31)
[2021-07-15] MEDS ORDERED: OXYCONTIN10 M1 PO (18:39)
[2021-07-15] MEDS ORDERED: SENNA LAX8.6 M1 PO (18:40)
[2021-07-15] MEDS ORDERED: TRAZODONE50 MG PO (18:42)
[2021-07-15] MEDS ORDERED: LANTUS SOL100 UNIT/1 SC (18:47)
[2021-07-15] MEDS ORDERED: BACTRIM 400-801 EACH PO (18:53)
[2021-07-15 19:35] LABS: BILIRUBIN Negative (Negative); BLOOD Trace-Lysed (Negative); CLARITY Turbid (Clear); COLOR Dark Yellow (Yellow); GLUCOSE 2+ (Negative); KETONE Trace (Negative); LEUKO ESTERASE 3+ (Negative); NITRITE Negative (Negative); SPECIFIC GRAVITY 1.015 (1.001-1.030); UROBILINOGEN 0.2 E.U./dl (0.0-1.0)
[2021-07-15 19:44] LABS: WBC TNTC wbc/hpf (0-5)
[2021-07-15 20:00] VITALS: BP 126/57
[2021-07-15 21:41] LABS: ARTERIAL BLOOD GAS PH 7.266 (7.35-7.45)
[2021-07-15 21:42] LABS: ABG BASE EXCESS -7.3 mmol/L (-2.0-2.0); ARTERIAL BLOOD GAS PO2 23.2 (80-90)
[2021-07-15 22:18] LABS: CREATININE 3.34 mg/dL (0.70-1.30); POTASSIUM 5.4 mmol/L (3.5-5.1)
[2021-07-16] VITALS: BP 125/64
[2021-07-16 02:25] LABS: CREATININE 3.28 mg/dL (0.70-1.30); POTASSIUM 4.9 mmol/L (3.5-5.1)
[2021-07-16 04:00] VITALS: BP 122/53
[2021-07-16 05:07] LABS: CREATININE 3.14 mg/dL (0.70-1.30); POTASSIUM 4.6 mmol/L (3.5-5.1)
[2021-07-16 06:17] LABS: HEMATOCRIT 21.9 % (42.0-52.0); MEAN CORPUSCULAR HGB 27.8 pg (27.0-31.0); MEAN PLATELET VOLUME 10.9 fl (9.6-12.3); PLATELET COUNT AUTOMATED 364 10*3/uL (130-400); RED BLOOD COUNT 2.52 10*6/uL (4.50-5.90); RED CELL DISTRI WIDTH 17.4 % (0-14.5); WHITE BLOOD COUNT 22.6 10*3/uL (4.8-10.8)
[2021-07-16 06:21] LABS: MANUAL DIFF REFLEX YES; MEAN CELL VOLUME 86.9 fl (80.0-94.0)
[2021-07-16 06:50] LABS: BURR CELLS FEW; OVALOCYTES FEW; PLATELET SUFFICIENCY NORMAL (NORMAL); POLYCHROMASIA SLIGHT; TOTAL CELLS COUNTED 100 #CELLS
[2021-07-16 08:00] VITALS: BP 119/57
[2021-07-16 10:39] LABS: CREATININE 2.98 mg/dL (0.70-1.30); POTASSIUM 4.5 mmol/L (3.5-5.1)
[2021-07-16 12:00] VITALS: BP 141/62
[2021-07-16 14:12] LABS: CREATININE 2.94 mg/dL (0.70-1.30); POTASSIUM 4.1 mmol/L (3.5-5.1)
[2021-07-16 16:00] VITALS: BP 122/62
[2021-07-16 17:15] LABS: CREATININE 2.72 mg/dL (0.70-1.30); POTASSIUM 4.6 mmol/L (3.5-5.1)
== END 2021-07-16 18:31 | disposition short-term general hospital (02) | DRG 871 ==
LOC: ED 10:36 → ICCU 14:55 → EDHOLD 14:55 → ICCU 14:59
PROVIDERS: Hospitalist; Student in an Organized Health Care Education/Training Program; ADMIT Internal Medicine; ATTEND Internal Medicine
PROC: 06HY33Z Insertion of Infusion Device into Lower Vein, Percutaneous Approach (ICD-10-PCS; principal; 2021-07-15)
PROC: B54BZZA Ultrasonography of Right Lower Extremity Veins, Guidance (ICD-10-PCS; 2021-07-15)
DX: A41.9 Sepsis, unspecified organism (principal); E10.10 Type 1 diabetes mellitus with ketoacidosis without coma; B59 Pneumocystosis; G93.41 Metabolic encephalopathy; J96.01 Acute respiratory failure with hypoxia; N17.0 Acute kidney failure with tubular necrosis; N18.6 End stage renal disease; J18.9 Pneumonia, unspecified organism; J44.0 Chronic obstructive pulmonary disease with (acute) lower respiratory infection; D84.9 Immunodeficiency, unspecified; E87.1 Hypo-osmolality and hyponatremia; I12.0 Hypertensive chronic kidney disease with stage 5 chronic kidney disease or end stage renal disease; N39.0 Urinary tract infection, site not specified; Z94.0 Kidney transplant status; L97.508 Non-pressure chronic ulcer of other part of unspecified foot with other specified severity; E55.9 Vitamin D deficiency, unspecified; E10.22 Type 1 diabetes mellitus with diabetic chronic kidney disease; K21.9 Gastro-esophageal reflux disease without esophagitis; E03.9 Hypothyroidism, unspecified; Z80.42 Family history of malignant neoplasm of prostate; Z79.899 Other long term (current) drug therapy; I25.2 Old myocardial infarction; E10.51 Type 1 diabetes mellitus with diabetic peripheral angiopathy without gangrene; E10.621 Type 1 diabetes mellitus with foot ulcer; I87.8 Other specified disorders of veins; Z79.82 Long term (current) use of aspirin; Z79.4 Long term (current) use of insulin

== ENCOUNTER → 2021-08-21 | Outpatient (CLI) | payer MEDICARE ==
[~2021-08-21] MED LIST changes: +AUGMENTIN 875-875 MG PO; +BACTRIM; +CALCIUM CARBON500 M3 PO; +HUMULIN R100 UNIT/1 IJ; +Ipratropium Brom3 ML INH; +LANTUS SOL100 UNIT/1 SC; +Lantus SC; +OXYCONTIN10 M1 PO; +TACROLIMUS1 M1 PO; +VITAMIN C500 M8 PO
[2021-08-21 16:54] LABS: BASO # 0.1 10*3/uL (0.0-0.1); BASO % 1.1 % (0.0-1.0); EOS # 0.4 10*3/uL (0.0-0.4); EOS % 4.3 % (1.0-4.0); HEMATOCRIT 31.7 % (42.0-52.0); LYMPH # 0.7 10*3/uL (1.3-4.4); LYMPH % 6.8 % (27.0-41.0); MEAN CELL VOLUME 82.6 fl (80.0-94.0); MEAN CORPUSCULAR HGB 27.3 pg (27.0-31.0); MEAN CORPUSCULAR HGB CONC 33.1 g/dl (33.0-37.0); MEAN PLATELET VOLUME 10.4 fl (9.6-12.3); MONO # 0.7 10*3/uL (0.1-1.0); MONO % 6.5 % (3.0-9.0); NEUT # 8.1 10*3/uL (2.3-7.9); NEUT % 81.1 % (47.0-73.0); PLATELET COUNT AUTOMATED 307 10*3/uL (130-400); RED BLOOD COUNT 3.84 10*6/uL (4.50-5.90); RED CELL DISTRI WIDTH 15.4 % (0-14.5)
[2021-08-21 17:17] LABS: CREATININE 1.86 mg/dL (0.70-1.30); POTASSIUM 3.6 mmol/L (3.5-5.1); TOTAL PROTEIN 7.9 gm/dL (6.4-8.2)
== END | disposition home or self-care (01) ==
LOC: LAB 16:36
PROVIDERS: ATTEND Internal Medicine
DX: J84.10 Pulmonary fibrosis, unspecified (principal); J18.9 Pneumonia, unspecified organism; J90 Pleural effusion, not elsewhere classified; Z95.2 Presence of prosthetic heart valve; I50.9 Heart failure, unspecified

== ENCOUNTER 2021-08-27 06:32 | Emergency (ER) | payer MEDICARE ==
[2021-08-27 07:25] LABS: ABG BASE EXCESS -7.1 mmol/L (-2.0-2.0); ARTERIAL BLOOD GAS PH 7.246 (7.35-7.45); ARTERIAL BLOOD GAS PO2 102.7 (80-90)
[2021-08-27 07:57] LABS: HEMATOCRIT 27.1 % (42.0-52.0); MEAN CELL VOLUME 86.3 fl (80.0-94.0); MEAN CORPUSCULAR HGB CONC 32.5 g/dl (33.0-37.0); MEAN PLATELET VOLUME 10.5 fl (9.6-12.3); PLATELET COUNT AUTOMATED 247 10*3/uL (130-400); RED BLOOD COUNT 3.14 10*6/uL (4.50-5.90); RED CELL DISTRI WIDTH 15.7 % (0-14.5); WHITE BLOOD COUNT 23.1 10*3/uL (4.8-10.8)
[2021-08-27 07:59] LABS: MANUAL DIFF REFLEX YES
[2021-08-27 08:12] LABS: CREATININE 3.22 mg/dL (0.70-1.30); POTASSIUM 5.3 mmol/L (3.5-5.1); TOTAL PROTEIN 7.9 gm/dL (6.4-8.2)
[2021-08-27 08:18] LABS: BASOPHILS 1 % (0-1); BURR CELLS FEW; PLATELET SUFFICIENCY NORMAL (NORMAL); TOTAL CELLS COUNTED 100 #CELLS
[2021-08-27 08:24] LABS: ACT PARTIAL THROMBO TIME 29.7 SECONDS (20.0-32.1); INTERNATIONAL NORM RATIO 1.1 (2.0-3.5)
[2021-08-27 16:35] LABS: ABG BASE EXCESS -12.6 mmol/L (-2.0-2.0); ARTERIAL BLOOD GAS PH 7.221 (7.35-7.45); ARTERIAL BLOOD GAS PO2 87.7 (80-90)
[2021-08-27 17:54] LABS: CREATININE 3.82 mg/dL (0.70-1.30)
[2021-08-27 18:12] LABS: POTASSIUM 6.5 mmol/L (3.5-5.1)
[2021-08-27 18:49] VITALS: BP 155/69
== END 2021-08-27 21:12 | disposition short-term general hospital (02) ==
LOC: ED 06:32
PROVIDERS: Emergency Medicine; Internal Medicine
DX: J96.01 Acute respiratory failure with hypoxia (principal); Z20.822 Contact with and (suspected) exposure to COVID-19; J18.9 Pneumonia, unspecified organism; E10.65 Type 1 diabetes mellitus with hyperglycemia; E87.5 Hyperkalemia; E87.1 Hypo-osmolality and hyponatremia; I13.0 Hypertensive heart and chronic kidney disease with heart failure and stage 1 through stage 4 chronic kidney disease, or unspecified chronic kidney disease; E10.22 Type 1 diabetes mellitus with diabetic chronic kidney disease; N18.30 Chronic kidney disease, stage 3 unspecified; I50.9 Heart failure, unspecified; N17.9 Acute kidney failure, unspecified; J44.9 Chronic obstructive pulmonary disease, unspecified; E03.9 Hypothyroidism, unspecified; Z94.0 Kidney transplant status; Z79.899 Other long term (current) drug therapy; Z79.82 Long term (current) use of aspirin; Z87.891 Personal history of nicotine dependence

== ENCOUNTER → 2021-09-09 | Outpatient (CLI) | payer OTHER ==
[2021-09-09 12:33] LABS: BASO # 0.1 10*3/uL (0.0-0.1); BASO % 0.6 % (0.0-1.0); EOS # 0.2 10*3/uL (0.0-0.4); EOS % 1.8 % (1.0-4.0); HEMATOCRIT 25.9 % (42.0-52.0); LYMPH # 0.5 10*3/uL (1.3-4.4); LYMPH % 5.1 % (27.0-41.0); MEAN CORPUSCULAR HGB 27.6 pg (27.0-31.0); MEAN PLATELET VOLUME 10.3 fl (9.6-12.3); MONO # 0.5 10*3/uL (0.1-1.0); MONO % 4.8 % (3.0-9.0); NEUT # 8.3 10*3/uL (2.3-7.9); NEUT % 87.3 % (47.0-73.0); PLATELET COUNT AUTOMATED 388 10*3/uL (130-400); RED BLOOD COUNT 3.01 10*6/uL (4.50-5.90); RED CELL DISTRI WIDTH 14.9 % (0-14.5); WHITE BLOOD COUNT 9.6 10*3/uL (4.8-10.8)
[2021-09-09 12:54] LABS: CREATININE 2.4 mg/dL (0.70-1.30); POTASSIUM 3.7 mmol/L (3.5-5.1)
[2021-09-09 13:05] LABS: FREE T4 1.07 ng/dl (0.76-1.46); THYROID STIM HORMONE (HS) 2.19 uIU/ml (0.358-4.75)
== END | disposition home or self-care (01) ==
LOC: LAB 12:13
PROVIDERS: ATTEND Internal Medicine
DX: E10.29 Type 1 diabetes mellitus with other diabetic kidney complication (principal); I10 Essential (primary) hypertension

== ENCOUNTER → 2021-09-15 | Outpatient (CLI) | payer OTHER | END | disposition home or self-care (01) | LOC: WOUNDCARE 02:13 | PROVIDERS: ATTEND Nurse Practitioner Family | DX: L89.320 Pressure ulcer of left buttock, unstageable (principal); L89.310 Pressure ulcer of right buttock, unstageable; L89.153 Pressure ulcer of sacral region, stage 3; E11.51 Type 2 diabetes mellitus with diabetic peripheral angiopathy without gangrene; E03.9 Hypothyroidism, unspecified; G47.00 Insomnia, unspecified; I10 Essential (primary) hypertension; I25.2 Old myocardial infarction; J44.9 Chronic obstructive pulmonary disease, unspecified; F17.200 Nicotine dependence, unspecified, uncomplicated; F32.9 Major depressive disorder, single episode, unspecified; Z79.4 Long term (current) use of insulin; Z95.818 Presence of other cardiac implants and grafts; Z95.4 Presence of other heart-valve replacement ==

== ENCOUNTER → 2021-09-23 | Outpatient (CLI) | payer OTHER | END | disposition home or self-care (01) | LOC: WOUNDCARE 01:09 | PROVIDERS: ATTEND Nurse Practitioner Family | DX: L89.153 Pressure ulcer of sacral region, stage 3 (principal); L89.320 Pressure ulcer of left buttock, unstageable; L89.310 Pressure ulcer of right buttock, unstageable; E11.51 Type 2 diabetes mellitus with diabetic peripheral angiopathy without gangrene; E03.9 Hypothyroidism, unspecified; I10 Essential (primary) hypertension; I25.2 Old myocardial infarction; G47.00 Insomnia, unspecified; J44.9 Chronic obstructive pulmonary disease, unspecified; F32.9 Major depressive disorder, single episode, unspecified; Z95.4 Presence of other heart-valve replacement; Z95.818 Presence of other cardiac implants and grafts; Z94.0 Kidney transplant status ==

== ENCOUNTER → 2021-10-06 | Outpatient (CLI) | payer OTHER ==
[2021-10-06 12:28] LABS: BASO # 0.1 10*3/uL (0.0-0.1); BASO % 1.1 % (0.0-1.0); EOS # 0.5 10*3/uL (0.0-0.4); EOS % 4.8 % (1.0-4.0); HEMATOCRIT 32.7 % (42.0-52.0); LYMPH # 0.8 10*3/uL (1.3-4.4); LYMPH % 8.4 % (27.0-41.0); MEAN CELL VOLUME 84.9 fl (80.0-94.0); MEAN CORPUSCULAR HGB 26.8 pg (27.0-31.0); MEAN CORPUSCULAR HGB CONC 31.5 g/dl (33.0-37.0); MEAN PLATELET VOLUME 10.2 fl (9.6-12.3); MONO # 0.8 10*3/uL (0.1-1.0); MONO % 8.4 % (3.0-9.0); NEUT # 7.3 10*3/uL (2.3-7.9); NEUT % 76.9 % (47.0-73.0); PLATELET COUNT AUTOMATED 443 10*3/uL (130-400); RED BLOOD COUNT 3.85 10*6/uL (4.50-5.90); RED CELL DISTRI WIDTH 15.5 % (0-14.5); WHITE BLOOD COUNT 9.5 10*3/uL (4.8-10.8)
[2021-10-06 12:47] LABS: CREATININE 2.77 mg/dL (0.70-1.30); POTASSIUM 3.5 mmol/L (3.5-5.1)
[2021-10-06 12:54] LABS: THYROID STIM HORMONE (HS) 2.45 uIU/ml (0.358-4.75)
[2021-10-06 13:46] LABS: VITAMIN D, 25-HYDROXY 38.3 ng/mL (30-100)
== END | disposition home or self-care (01) ==
LOC: LAB 11:41
PROVIDERS: ATTEND Internal Medicine Endocrinology, Diabetes & Metabolism
DX: E10.65 Type 1 diabetes mellitus with hyperglycemia (principal); E55.9 Vitamin D deficiency, unspecified; Z79.899 Other long term (current) drug therapy

== ENCOUNTER → 2021-10-15 | Outpatient (CLI) | payer OTHER ==
[~2021-10-15] MED LIST changes: +ATORVASTATIN CA40 M1 PO; +BASAG SOL SC; +DULCOLAX STOOL100 M1 PO; +ELIQUIS5 M1 PO; +ERTAPENEM1 GM IV; +FUROSEMIDE80 MG PO; +MYCOPHENOLATE500 MG PO; +NOVOLOG100 UNIT/1 SQ; +SMZ/TMP DS 800-160; +Synthroid,Levo88 MCG PO
== END | disposition home or self-care (01) ==
LOC: WOUNDCARE 01:00
PROVIDERS: ATTEND Nurse Practitioner Family
DX: L89.320 Pressure ulcer of left buttock, unstageable (principal); L89.310 Pressure ulcer of right buttock, unstageable; L89.153 Pressure ulcer of sacral region, stage 3; E11.51 Type 2 diabetes mellitus with diabetic peripheral angiopathy without gangrene; E03.9 Hypothyroidism, unspecified; I25.2 Old myocardial infarction; I10 Essential (primary) hypertension; J44.9 Chronic obstructive pulmonary disease, unspecified; F32.9 Major depressive disorder, single episode, unspecified; F17.200 Nicotine dependence, unspecified, uncomplicated; Z95.4 Presence of other heart-valve replacement; Z95.818 Presence of other cardiac implants and grafts; Z94.0 Kidney transplant status

== ENCOUNTER 2021-11-27 12:40 | Inpatient (IN) | payer MEDICARE ==
[~2021-11-27] VITALS: Ht 178 cm; Wt 60.4 kg
[2021-11-27 12:50] VITALS: BP 111/60
[2021-11-27 13:33] LABS: BASO # 0.1 10*3/uL (0.0-0.1); BASO % 0.6 % (0.0-1.0); EOS # 0.1 10*3/uL (0.0-0.4); LYMPH # 0.7 10*3/uL (1.3-4.4); LYMPH % 6.7 % (27.0-41.0); MEAN CELL VOLUME 82.8 fl (80.0-94.0); MEAN CORPUSCULAR HGB 27.3 pg (27.0-31.0); MEAN PLATELET VOLUME 10.6 fl (9.6-12.3); MONO # 0.6 10*3/uL (0.1-1.0); MONO % 6.1 % (3.0-9.0); NEUT # 8.5 10*3/uL (2.3-7.9); NEUT % 85.2 % (47.0-73.0); PLATELET COUNT AUTOMATED 370 10*3/uL (130-400); RED BLOOD COUNT 4.47 10*6/uL (4.50-5.90); RED CELL DISTRI WIDTH 15.7 % (0-14.5); WHITE BLOOD COUNT 9.9 10*3/uL (4.8-10.8)
[2021-11-27 13:50] LABS: CREATININE 4.68 mg/dL (0.70-1.30); TOTAL PROTEIN 8.6 gm/dL (6.4-8.2)
[2021-11-27 13:55] LABS: POTASSIUM 3.2 mmol/L (3.5-5.1)
[2021-11-27 18:07] VITALS: BP 130/67
[2021-11-27 19:56] VITALS: BP 145/71
[2021-11-27 22:55] VITALS: BP 119/69
[2021-11-28] VITALS (7 sets, daily range): BP systolic 135–184; BP diastolic 59–85
[2021-11-28 13:20] LABS: BASO # 0.1 10*3/uL (0.0-0.1); BASO % 0.8 % (0.0-1.0); EOS # 0.2 10*3/uL (0.0-0.4); EOS % 1.8 % (1.0-4.0); HEMATOCRIT 39.5 % (42.0-52.0); LYMPH # 0.4 10*3/uL (1.3-4.4); LYMPH % 3.4 % (27.0-41.0); MEAN CELL VOLUME 85.7 fl (80.0-94.0); MEAN CORPUSCULAR HGB 27.8 pg (27.0-31.0); MEAN CORPUSCULAR HGB CONC 32.4 g/dl (33.0-37.0); MEAN PLATELET VOLUME 11.4 fl (9.6-12.3); MONO # 0.6 10*3/uL (0.1-1.0); MONO % 5.4 % (3.0-9.0); NEUT # 10.6 10*3/uL (2.3-7.9); NEUT % 88.2 % (47.0-73.0); PLATELET COUNT AUTOMATED 343 10*3/uL (130-400); RED BLOOD COUNT 4.61 10*6/uL (4.50-5.90); RED CELL DISTRI WIDTH 15.9 % (0-14.5)
[2021-11-28 13:39] LABS: CREATININE 4.21 mg/dL (0.70-1.30); TOTAL PROTEIN 8.5 gm/dL (6.4-8.2)
[2021-11-28 14:17] LABS: BILIRUBIN Negative (Negative); BLOOD Trace-Lysed (Negative); CLARITY Turbid (Clear); COLOR Yellow (Yellow); GLUCOSE Negative (Negative); KETONE Negative (Negative); LEUKO ESTERASE 3+ (Negative); NITRITE Negative (Negative); UROBILINOGEN 0.2 E.U./dl (0.0-1.0)
[2021-11-28 14:34] LABS: WBC TNTC wbc/hpf (0-5)
[2021-11-29 00:36] VITALS: BP 145/80; BP 155/88
[2021-11-29 02:52] LABS: CREATININE 3.59 mg/dL (0.70-1.30); POTASSIUM 4.7 mmol/L (3.5-5.1)
[2021-11-29 08:00] VITALS: BP 115/72
[2021-11-29 08:39] LABS: BASO # 0.1 10*3/uL (0.0-0.1); BASO % 0.5 % (0.0-1.0); EOS # 0.4 10*3/uL (0.0-0.4); EOS % 4.4 % (1.0-4.0); HEMATOCRIT 30.9 % (42.0-52.0); MEAN CELL VOLUME 83.5 fl (80.0-94.0); MEAN CORPUSCULAR HGB 27.6 pg (27.0-31.0); MEAN PLATELET VOLUME 10.6 fl (9.6-12.3); MONO % 10.8 % (3.0-9.0); NEUT % 73.9 % (47.0-73.0); PLATELET COUNT AUTOMATED 300 10*3/uL (130-400); RED CELL DISTRI WIDTH 15.5 % (0-14.5); WHITE BLOOD COUNT 9.5 10*3/uL (4.8-10.8)
[2021-11-29 08:46] LABS: ACT PARTIAL THROMBO TIME 31.6 SECONDS (20.0-32.1)
[2021-11-29 08:53] LABS: CREATININE 3.17 mg/dL (0.70-1.30); TOTAL PROTEIN 7.6 gm/dL (6.4-8.2)
[2021-11-29 08:58] LABS: FREE T4 0.99 ng/dl (0.76-1.46); THYROID STIM HORMONE (HS) 1.72 uIU/ml (0.358-4.75)
[2021-11-29 09:10] LABS: POTASSIUM 3.2 mmol/L (3.5-5.1)
[2021-11-29 12:00] VITALS: BP 123/58
[2021-11-29 16:00] VITALS: BP 130/67
[2021-11-29 20:00] VITALS: BP 140/47
[2021-11-30] VITALS: BP 156/65
[2021-11-30 07:30] LABS: CREATININE 2.33 mg/dL (0.70-1.30)
[2021-11-30 07:39] LABS: POTASSIUM 4.3 mmol/L (3.5-5.1)
[2021-11-30 08:00] VITALS: BP 130/50
[2021-11-30 12:00] VITALS: BP 122/43
[2021-11-30 13:01] LABS: BASO % 0.5 % (0.0-1.0); EOS # 0.3 10*3/uL (0.0-0.4); EOS % 3.2 % (1.0-4.0); HEMATOCRIT 28.4 % (42.0-52.0); LYMPH # 0.4 10*3/uL (1.3-4.4); LYMPH % 5.2 % (27.0-41.0); MEAN CELL VOLUME 84.5 fl (80.0-94.0); MEAN CORPUSCULAR HGB 27.7 pg (27.0-31.0); MEAN CORPUSCULAR HGB CONC 32.7 g/dl (33.0-37.0); MONO # 0.5 10*3/uL (0.1-1.0); MONO % 6.1 % (3.0-9.0); NEUT % 84.8 % (47.0-73.0); PLATELET COUNT AUTOMATED 266 10*3/uL (130-400); RED BLOOD COUNT 3.36 10*6/uL (4.50-5.90); RED CELL DISTRI WIDTH 15.9 % (0-14.5); WHITE BLOOD COUNT 8.2 10*3/uL (4.8-10.8)
[2021-11-30 16:00] VITALS: BP 150/42
[2021-11-30 20:00] VITALS: BP 154/71
[2021-12-01] VITALS: BP 150/66
[2021-12-01 08:00] VITALS: BP 156/50
[2021-12-01 11:06] LABS: CREATININE 1.64 mg/dL (0.70-1.30); POTASSIUM 4.3 mmol/L (3.5-5.1)
[2021-12-01 12:00] VITALS: BP 143/50
== END 2021-12-01 14:10 | disposition other institution (70) | DRG 689 ==
LOC: ED 12:40 → EDHOLD 11-28 21:55 → 5E 11-28 21:55
PROVIDERS: Family Medicine; Internal Medicine; Internal Medicine Nephrology; Student in an Organized Health Care Education/Training Program; ADMIT Internal Medicine; ATTEND Internal Medicine
DX: N39.0 Urinary tract infection, site not specified (principal); N17.0 Acute kidney failure with tubular necrosis; E87.1 Hypo-osmolality and hyponatremia; Z94.0 Kidney transplant status; D84.9 Immunodeficiency, unspecified; I13.0 Hypertensive heart and chronic kidney disease with heart failure and stage 1 through stage 4 chronic kidney disease, or unspecified chronic kidney disease; T86.19 Other complication of kidney transplant; I50.9 Heart failure, unspecified; E10.22 Type 1 diabetes mellitus with diabetic chronic kidney disease; E10.65 Type 1 diabetes mellitus with hyperglycemia; N18.30 Chronic kidney disease, stage 3 unspecified; J44.9 Chronic obstructive pulmonary disease, unspecified; E10.42 Type 1 diabetes mellitus with diabetic polyneuropathy; E03.9 Hypothyroidism, unspecified; E10.51 Type 1 diabetes mellitus with diabetic peripheral angiopathy without gangrene; K21.9 Gastro-esophageal reflux disease without esophagitis; Z87.891 Personal history of nicotine dependence; Z82.49 Family history of ischemic heart disease and other diseases of the circulatory system; Z80.42 Family history of malignant neoplasm of prostate; Z83.49 Family history of other endocrine, nutritional and metabolic diseases; Z79.899 Other long term (current) drug therapy; Y83.0 Surgical operation with transplant of whole organ as the cause of abnormal reaction of the patient, or of later complication, without mention of misadventure at the time of the procedure

== ENCOUNTER → 2022-01-14 | Outpatient (CLI) | payer MEDICARE ==
[2022-01-14 14:20] LABS: BASO # 0.1 10*3/uL (0.0-0.1); BASO % 0.8 % (0.0-1.0); EOS # 0.4 10*3/uL (0.0-0.4); EOS % 4.9 % (1.0-4.0); LYMPH # 0.8 10*3/uL (1.3-4.4); MEAN CORPUSCULAR HGB CONC 32.2 g/dl (33.0-37.0); MEAN PLATELET VOLUME 9.9 fl (9.6-12.3); MONO # 0.9 10*3/uL (0.1-1.0); MONO % 10.2 % (3.0-9.0); NEUT # 6.5 10*3/uL (2.3-7.9); NEUT % 74.5 % (47.0-73.0); PLATELET COUNT AUTOMATED 303 10*3/uL (130-400); RED BLOOD COUNT 3.81 10*6/uL (4.50-5.90); WHITE BLOOD COUNT 8.7 10*3/uL (4.8-10.8)
[2022-01-14 14:33] LABS: CREATININE 2.81 mg/dL (0.70-1.30); POTASSIUM 3.8 mmol/L (3.4-5.1); URIC ACID 9.1 mg/dL (3.1-9.2)
[2022-01-14 14:34] LABS: TOTAL PROTEIN 8.1 gm/dL (6.0-8.0)
[2022-01-14 14:44] LABS: BILIRUBIN Negative (Negative); BLOOD Negative (Negative); CLARITY Clear (Clear); COLOR Yellow (Yellow); GLUCOSE Trace (Negative); KETONE Negative (Negative); LEUKO ESTERASE 3+ (Negative); NITRITE Negative (Negative); UROBILINOGEN 0.2 E.U./dl (0.0-1.0)
[2022-01-14 14:54] LABS: BACTERIA 1+; WBC 31-40 wbc/hpf (0-5)
[2022-01-14 14:55] LABS: URINE CREATININE RANDOM 37.94 mg/dL
[2022-01-14 15:01] LABS: VITAMIN D, 25-HYDROXY 40.5 ng/mL (30-100)
== END | disposition home or self-care (01) ==
LOC: LAB 13:44
PROVIDERS: ATTEND Internal Medicine Nephrology
DX: E11.21 Type 2 diabetes mellitus with diabetic nephropathy (principal); E21.3 Hyperparathyroidism, unspecified; Z94.0 Kidney transplant status

== ENCOUNTER 2022-01-15 15:41 | Emergency (ER) | payer MEDICARE ==
[~2022-01-15] VITALS: Wt 59.0 kg
[2022-01-15 15:57] VITALS: BP 116/62
[2022-01-15 17:47] LABS: BASO # 0.1 10*3/uL (0.0-0.1); BASO % 1.3 % (0.0-1.0); EOS # 0.3 10*3/uL (0.0-0.4); EOS % 3.3 % (1.0-4.0); HEMATOCRIT 32.8 % (42.0-52.0); LYMPH # 0.7 10*3/uL (1.3-4.4); LYMPH % 8.9 % (27.0-41.0); MEAN CELL VOLUME 85.2 fl (80.0-94.0); MEAN CORPUSCULAR HGB 27.3 pg (27.0-31.0); MEAN PLATELET VOLUME 10.6 fl (9.6-12.3); MONO # 0.8 10*3/uL (0.1-1.0); MONO % 10.1 % (3.0-9.0); NEUT # 5.7 10*3/uL (2.3-7.9); NEUT % 75.9 % (47.0-73.0); PLATELET COUNT AUTOMATED 335 10*3/uL (130-400); RED BLOOD COUNT 3.85 10*6/uL (4.50-5.90); RED CELL DISTRI WIDTH 16.2 % (0-14.5); WHITE BLOOD COUNT 7.5 10*3/uL (4.8-10.8)
[2022-01-15 17:55] LABS: ACT PARTIAL THROMBO TIME 29.8 SECONDS (20.0-32.1); INTERNATIONAL NORM RATIO 1.1 (2.0-3.5)
[2022-01-15 18:01] LABS: CREATININE 2.78 mg/dL (0.70-1.30); POTASSIUM 4.4 mmol/L (3.4-5.1)
[2022-01-15 18:02] LABS: TOTAL PROTEIN 7.9 gm/dL (6.0-8.0)
== END 2022-01-15 18:28 | disposition home or self-care (01) ==
LOC: ED 15:41
PROVIDERS: Emergency Medicine
DX: E86.0 Dehydration (principal); J44.9 Chronic obstructive pulmonary disease, unspecified; I13.0 Hypertensive heart and chronic kidney disease with heart failure and stage 1 through stage 4 chronic kidney disease, or unspecified chronic kidney disease; E10.22 Type 1 diabetes mellitus with diabetic chronic kidney disease; N18.4 Chronic kidney disease, stage 4 (severe); I50.9 Heart failure, unspecified; E87.8 Other disorders of electrolyte and fluid balance, not elsewhere classified; E87.1 Hypo-osmolality and hyponatremia; E10.65 Type 1 diabetes mellitus with hyperglycemia; Z87.891 Personal history of nicotine dependence; Z79.899 Other long term (current) drug therapy

== ENCOUNTER 2022-02-11 05:31 | Inpatient (IN) | payer MEDICARE ==
[2022-02-11] VITALS (7 sets, daily range): BP systolic 152–170; BP diastolic 57–76
[~2022-02-11] VITALS: Ht 177.8 cm; Wt 72.0 kg
[2022-02-11 06:10] LABS: BASO % 0.2 % (0.0-1.0); EOS % 0.1 % (1.0-4.0); HEMATOCRIT 27.3 % (42.0-52.0); LYMPH # 0.2 10*3/uL (1.3-4.4); LYMPH % 1.6 % (27.0-41.0); MEAN CORPUSCULAR HGB 27.4 pg (27.0-31.0); MEAN PLATELET VOLUME 10.9 fl (9.6-12.3); MONO # 1.3 10*3/uL (0.1-1.0); MONO % 8.4 % (3.0-9.0); NEUT # 13.5 10*3/uL (2.3-7.9); NEUT % 89.2 % (47.0-73.0); PLATELET COUNT AUTOMATED 250 10*3/uL (130-400); RED BLOOD COUNT 3.29 10*6/uL (4.50-5.90); RED CELL DISTRI WIDTH 15.3 % (0-14.5); WHITE BLOOD COUNT 15.2 10*3/uL (4.8-10.8)
[2022-02-11 06:32] LABS: POTASSIUM 4.3 mmol/L (3.4-5.1); TOTAL PROTEIN 7.5 gm/dL (6.0-8.0)
[2022-02-12] VITALS (30 sets, daily range): BP systolic 100–185; BP diastolic 49–76
[2022-02-12 02:12] LABS: ABG BASE EXCESS -0.1 mmol/L (-2.0-2.0); ARTERIAL BLOOD GAS PH 7.483 (7.35-7.45); ARTERIAL BLOOD GAS PO2 65.5 (80-90)
[2022-02-12 05:13] LABS: POTASSIUM 4.3 mmol/L (3.4-5.1); TOTAL PROTEIN 8.3 gm/dL (6.0-8.0)
[2022-02-12 06:32] LABS: HEMATOCRIT 29.7 % (42.0-52.0); MEAN CELL VOLUME 85.3 fl (80.0-94.0); MEAN CORPUSCULAR HGB 27.3 pg (27.0-31.0); PLATELET COUNT AUTOMATED 275 10*3/uL (130-400); RED BLOOD COUNT 3.48 10*6/uL (4.50-5.90); RED CELL DISTRI WIDTH 15.1 % (0-14.5); WHITE BLOOD COUNT 19.4 10*3/uL (4.8-10.8)
[2022-02-12 06:34] LABS: MANUAL DIFF REFLEX YES
[2022-02-12 07:32] LABS: BURR CELLS FEW; OVALOCYTES FEW; PLATELET SUFFICIENCY NORMAL (NORMAL); POLYCHROMASIA SLIGHT; ROULEAUX SLIGHT; TOTAL CELLS COUNTED 100 #CELLS; TOXIC GRANULATION SLIGHT
[2022-02-12 09:33] LABS: ABG BASE EXCESS 0.2 mmol/L (-2.0-2.0); ARTERIAL BLOOD GAS PH 7.395 (7.35-7.45); ARTERIAL BLOOD GAS PO2 198.4 (80-90)
[2022-02-12 12:39] LABS: BILIRUBIN Negative (Negative); BLOOD Negative (Negative); CLARITY Cloudy (Clear); COLOR Yellow (Yellow); GLUCOSE Negative (Negative); KETONE Negative (Negative); LEUKO ESTERASE 1+ (Negative); NITRITE Negative (Negative); SPECIFIC GRAVITY 1.015 (1.001-1.030); UROBILINOGEN 0.2 E.U./dl (0.0-1.0)
[2022-02-12 12:58] LABS: HYALINE CAST 0-2; YEAST 3+
[2022-02-12 13:00] LABS: BACTERIA 2+
[2022-02-12 20:10] LABS: ABG BASE EXCESS -1.3 mmol/L (-2.0-2.0); ARTERIAL BLOOD GAS PH 7.405 (7.35-7.45); ARTERIAL BLOOD GAS PO2 203.9 (80-90)
[2022-02-13] VITALS (9 sets, daily range): BP systolic 105–151; BP diastolic 40–53
[2022-02-13 05:06] LABS: IMMUNOGLOBULIN M, QNT 47 mg/dL (20-172)
[2022-02-13 06:44] LABS: HEMATOCRIT 26.5 % (42.0-52.0); MEAN CELL VOLUME 84.9 fl (80.0-94.0); MEAN CORPUSCULAR HGB 26.6 pg (27.0-31.0); MEAN CORPUSCULAR HGB CONC 31.3 g/dl (33.0-37.0); MEAN PLATELET VOLUME 11.8 fl (9.6-12.3); PLATELET COUNT AUTOMATED 314 10*3/uL (130-400); RED BLOOD COUNT 3.12 10*6/uL (4.50-5.90); RED CELL DISTRI WIDTH 14.6 % (0-14.5); WHITE BLOOD COUNT 17.6 10*3/uL (4.8-10.8)
[2022-02-13 06:51] LABS: MANUAL DIFF REFLEX YES
[2022-02-13 07:26] LABS: ACANTHOCYTES FEW; BURR CELLS MODERATE; PLATELET SUFFICIENCY NORMAL (NORMAL); TOTAL CELLS COUNTED 100 #CELLS
[2022-02-13 07:27] LABS: OVALOCYTES FEW; SCHISTOCYTES FEW
[2022-02-13 08:11] LABS: POTASSIUM 5.1 mmol/L (3.4-5.1); TOTAL PROTEIN 7.2 gm/dL (6.0-8.0)
[2022-02-13 08:19] LABS: ABG BASE EXCESS -10.6 mmol/L (-2.0-2.0); ARTERIAL BLOOD GAS PO2 316.3 (80-90)
[2022-02-13 08:24] LABS: ARTERIAL BLOOD GAS PH 7.147 (7.35-7.45)
[2022-02-13 10:13] LABS: ARTERIAL BLOOD GAS PH 7.248 (7.35-7.45)
[2022-02-13 10:14] LABS: ABG BASE EXCESS -5.1 mmol/L (-2.0-2.0)
[2022-02-13 14:42] LABS: ABG BASE EXCESS -3.2 mmol/L (-2.0-2.0); ARTERIAL BLOOD GAS PH 7.404 (7.35-7.45); ARTERIAL BLOOD GAS PO2 188.5 (80-90)
[2022-02-16 00:05] LABS: IGG SUBCLASS 1 864 mg/dL (248-810); IGG SUBCLASS 2 225 mg/dL (130-555); IGG SUBCLASS 3 41 mg/dL (15-102); IMMUNOGLOBULIN G, QNT 1238 mg/dL (603-1613)
[2022-02-16 10:06] LABS: ATYPICAL PANCA <1:20 titer (Neg:<1:20)
[2022-02-16 13:06] LABS: ANGIOTENSIN-CONVERTING ENZYME 61 U/L (14-82)
== END 2022-02-13 15:20 | disposition short-term general hospital (02) | DRG 871 ==
LOC: ED 05:31 → EDHOLD 08:53 → 4E 08:53 → EDHOLD 12:06 → 4E 17:16 → ICCU 02-12 03:29
PROVIDERS: Internal Medicine; Internal Medicine Critical Care Medicine; Student in an Organized Health Care Education/Training Program; ADMIT Internal Medicine; ATTEND Internal Medicine
PROC: 5A09357 Assistance with Respiratory Ventilation, Less than 24 Consecutive Hours, Continuous Positive Airway Pressure (ICD-10-PCS; 2022-02-11)
PROC: 5A1935Z Respiratory Ventilation, Less than 24 Consecutive Hours (ICD-10-PCS; principal; 2022-02-12)
PROC: 0BH17EZ Insertion of Endotracheal Airway into Trachea, Via Natural or Artificial Opening (ICD-10-PCS; 2022-02-12)
PROC: 02HV33Z Insertion of Infusion Device into Superior Vena Cava, Percutaneous Approach (ICD-10-PCS; 2022-02-12)
PROC: B548ZZA Ultrasonography of Superior Vena Cava, Guidance (ICD-10-PCS; 2022-02-12)
DX: A41.9 Sepsis, unspecified organism (principal); J18.9 Pneumonia, unspecified organism; J96.01 Acute respiratory failure with hypoxia; N17.0 Acute kidney failure with tubular necrosis; E87.1 Hypo-osmolality and hyponatremia; N18.4 Chronic kidney disease, stage 4 (severe); D84.9 Immunodeficiency, unspecified; I50.30 Unspecified diastolic (congestive) heart failure; Z94.0 Kidney transplant status; I13.0 Hypertensive heart and chronic kidney disease with heart failure and stage 1 through stage 4 chronic kidney disease, or unspecified chronic kidney disease; E86.0 Dehydration; R65.20 Severe sepsis without septic shock; J44.9 Chronic obstructive pulmonary disease, unspecified; E03.9 Hypothyroidism, unspecified; E11.22 Type 2 diabetes mellitus with diabetic chronic kidney disease; S91.302A Unspecified open wound, left foot, initial encounter; E11.51 Type 2 diabetes mellitus with diabetic peripheral angiopathy without gangrene; X58.XXXA Exposure to other specified factors, initial encounter; Y93.89 Activity, other specified; Y92.89 Other specified places as the place of occurrence of the external cause; Z82.49 Family history of ischemic heart disease and other diseases of the circulatory system; Z80.42 Family history of malignant neoplasm of prostate; Z79.4 Long term (current) use of insulin; Y99.8 Other external cause status

== ENCOUNTER 2022-02-25 07:28 | Inpatient (IN) | payer MEDICARE ==
[~2022-02-25] VITALS: Ht 177.8 cm; Wt 39.7 kg
[2022-02-25 07:39] VITALS: BP 165/71
[2022-02-25 08:31] LABS: HEMATOCRIT 27.7 % (42.0-52.0); MEAN CELL VOLUME 86.3 fl (80.0-94.0); MEAN CORPUSCULAR HGB 27.1 pg (27.0-31.0); MEAN CORPUSCULAR HGB CONC 31.4 g/dl (33.0-37.0); MEAN PLATELET VOLUME 11.6 fl (9.6-12.3); PLATELET COUNT AUTOMATED 385 10*3/uL (130-400); RED BLOOD COUNT 3.21 10*6/uL (4.50-5.90); RED CELL DISTRI WIDTH 15.6 % (0-14.5); WHITE BLOOD COUNT 15.3 10*3/uL (4.8-10.8)
[2022-02-25 08:32] LABS: MANUAL DIFF REFLEX YES
[2022-02-25 08:55] LABS: BURR CELLS FEW; PLATELET SUFFICIENCY NORMAL (NORMAL); POLYCHROMASIA SLIGHT; SCHISTOCYTES FEW; TOTAL CELLS COUNTED 100 #CELLS; TOXIC GRANULATION SLIGHT
[2022-02-25 08:57] LABS: POTASSIUM 5.5 mmol/L (3.4-5.1); TOTAL PROTEIN 7.7 gm/dL (6.0-8.0)
[2022-02-25 10:06] LABS: BILIRUBIN Negative (Negative); BLOOD Negative (Negative); CLARITY Clear (Clear); COLOR Yellow (Yellow); GLUCOSE 3+ (Negative); KETONE 2+ (Negative); LEUKO ESTERASE Negative (Negative); NITRITE Negative (Negative); PH 5.5 (4.5-8.0); SPECIFIC GRAVITY 1.025 (1.001-1.030); UROBILINOGEN 0.2 E.U./dl (0.0-1.0)
[2022-02-25 10:12] LABS: POTASSIUM 5.6 mmol/L (3.4-5.1)
[2022-02-25 10:20] LABS: BACTERIA TRACE; EPITHELIAL CELLS 0-2; WBC 21-30 wbc/hpf (0-5)
[2022-02-25 11:43] LABS: CHLORIDE 86 mmol/L (98-107); POTASSIUM 5.6 mmol/L (3.4-5.1)
[2022-02-25 11:54] LABS: BUN 69 mg/dl (9-23)
[2022-02-25 12:00] VITALS: BP 191/77
[2022-02-25 13:13] LABS: POTASSIUM 4.7 mmol/L (3.4-5.1)
[2022-02-25 16:00] VITALS: BP 155/67
[2022-02-25 18:00] VITALS: BP 132/53
[2022-02-25 19:13] LABS: POTASSIUM 3.8 mmol/L (3.4-5.1)
[2022-02-25 20:00] VITALS: BP 117/56
[2022-02-25 21:03] LABS: POTASSIUM 4.7 mmol/L (3.4-5.1)
[2022-02-25 22:00] VITALS: BP 109/50
[2022-02-26] VITALS (9 sets, daily range): BP systolic 120–145; BP diastolic 26–58
[2022-02-26 07:41] LABS: BASO % 0.1 % (0.0-1.0); EOS # 0.3 10*3/uL (0.0-0.4); EOS % 1.8 % (1.0-4.0); HEMATOCRIT 23.1 % (42.0-52.0); LYMPH # 0.7 10*3/uL (1.3-4.4); LYMPH % 4.5 % (27.0-41.0); MEAN CELL VOLUME 84.3 fl (80.0-94.0); MEAN CORPUSCULAR HGB 27.7 pg (27.0-31.0); MEAN CORPUSCULAR HGB CONC 32.9 g/dl (33.0-37.0); MEAN PLATELET VOLUME 11.5 fl (9.6-12.3); MONO % 6.1 % (3.0-9.0); NEUT # 13.7 10*3/uL (2.3-7.9); NEUT % 87.1 % (47.0-73.0); PLATELET COUNT AUTOMATED 381 10*3/uL (130-400); RED BLOOD COUNT 2.74 10*6/uL (4.50-5.90); RED CELL DISTRI WIDTH 15.9 % (0-14.5); WHITE BLOOD COUNT 15.7 10*3/uL (4.8-10.8)
[2022-02-26 07:53] LABS: POTASSIUM 4.4 mmol/L (3.4-5.1)
[2022-02-26 14:10] LABS: POTASSIUM 4.5 mmol/L (3.4-5.1)
[2022-02-27] VITALS: BP 131/52
[2022-02-27 06:18] LABS: BASO # 0.1 10*3/uL (0.0-0.1); BASO % 0.4 % (0.0-1.0); EOS # 0.3 10*3/uL (0.0-0.4); EOS % 2.1 % (1.0-4.0); HEMATOCRIT 25.9 % (42.0-52.0); LYMPH # 0.7 10*3/uL (1.3-4.4); LYMPH % 4.8 % (27.0-41.0); MEAN CELL VOLUME 84.9 fl (80.0-94.0); MEAN CORPUSCULAR HGB 26.9 pg (27.0-31.0); MEAN CORPUSCULAR HGB CONC 31.7 g/dl (33.0-37.0); MEAN PLATELET VOLUME 10.8 fl (9.6-12.3); MONO # 0.7 10*3/uL (0.1-1.0); NEUT # 11.9 10*3/uL (2.3-7.9); NEUT % 87.3 % (47.0-73.0); PLATELET COUNT AUTOMATED 394 10*3/uL (130-400); RED BLOOD COUNT 3.05 10*6/uL (4.50-5.90); WHITE BLOOD COUNT 13.6 10*3/uL (4.8-10.8)
[2022-02-27 06:35] LABS: ALKALINE PHOSPHATASE 101 U/L (46-116); BUN 38 mg/dl (9-23); CHLORIDE 99 mmol/L (98-107); POTASSIUM 4.5 mmol/L (3.4-5.1); SGPT/ALT 60 U/L (10-49); TOTAL PROTEIN 6.2 gm/dL (6.0-8.0)
[2022-02-27 08:00] VITALS: BP 154/42
[2022-02-27 12:00] VITALS: BP 151/51
[2022-02-27 16:00] VITALS: BP 124/61
[2022-02-27 20:00] VITALS: BP 154/47
[2022-02-28] VITALS: BP 153/75
[2022-02-28 08:00] VITALS: BP 156/50
[2022-02-28 10:30] VITALS: BP 179/92
[2022-02-28 11:15] VITALS: BP 142/37
[2022-02-28 11:35] VITALS: BP 142/44
[2022-02-28 20:00] VITALS: BP 152/67
[2022-02-28] MEDS ORDERED: AUGMENTIN 500500 M1 PO (21:53)
[2022-02-28] MEDS ORDERED: LEVOFLOXACIN750 M2 PO (21:53)
[2022-02-28] MEDS ORDERED: TRAZODONE100 MG PO (22:05)
[2022-02-28] MEDS ORDERED: FUROSEMIDE80 MG PO (22:06)
[2022-03-01] VITALS (7 sets, daily range): BP systolic 137–161; BP diastolic 54–77
[2022-03-02 12:07] LABS: ACID FAST SPEC PROCESSING Tissue Grinding (.)
[2022-03-12] MEDS ORDERED: FLOMAX0.4 MG PO (10:32)
== END 2022-03-01 17:42 | disposition home health service (06) | DRG 853 ==
LOC: ED 07:28 → EDHOLD 09:33 → 5E 09:33 → ICCU 09:33 → EDHOLD 09:34 → ICCU 11:22 → 5E 02-27 11:49
PROVIDERS: Podiatrist Foot & Ankle Surgery; Student in an Organized Health Care Education/Training Program; ADMIT Internal Medicine; ATTEND Internal Medicine
PROC: 0JB90ZZ Excision of Buttock Subcutaneous Tissue and Fascia, Open Approach (ICD-10-PCS; principal; 2022-02-26)
PROC: 0DJ08ZZ Inspection of Upper Intestinal Tract, Via Natural or Artificial Opening Endoscopic (ICD-10-PCS; 2022-02-28)
PROC: 0QBM0ZX Excision of Left Tarsal, Open Approach, Diagnostic (ICD-10-PCS; 2022-03-01)
DX: A41.9 Sepsis, unspecified organism (principal); E10.10 Type 1 diabetes mellitus with ketoacidosis without coma; J69.0 Pneumonitis due to inhalation of food and vomit; E87.1 Hypo-osmolality and hyponatremia; I13.0 Hypertensive heart and chronic kidney disease with heart failure and stage 1 through stage 4 chronic kidney disease, or unspecified chronic kidney disease; D84.9 Immunodeficiency, unspecified; N39.0 Urinary tract infection, site not specified; M86.8X6 Other osteomyelitis, lower leg; Z94.0 Kidney transplant status; N18.32 Chronic kidney disease, stage 3b; E86.0 Dehydration; L89.521 Pressure ulcer of left ankle, stage 1; I50.9 Heart failure, unspecified; J44.9 Chronic obstructive pulmonary disease, unspecified; E03.9 Hypothyroidism, unspecified; G89.29 Other chronic pain; M54.50 Low back pain, unspecified; R65.20 Severe sepsis without septic shock; L92.8 Other granulomatous disorders of the skin and subcutaneous tissue; L89.320 Pressure ulcer of left buttock, unstageable; L89.311 Pressure ulcer of right buttock, stage 1; L89.620 Pressure ulcer of left heel, unstageable; S80.12XA Contusion of left lower leg, initial encounter; B95.2 Enterococcus as the cause of diseases classified elsewhere; Z95.828 Presence of other vascular implants and grafts; Z80.42 Family history of malignant neoplasm of prostate; Z95.5 Presence of coronary angioplasty implant and graft; Z87.891 Personal history of nicotine dependence; Z82.49 Family history of ischemic heart disease and other diseases of the circulatory system; Z79.4 Long term (current) use of insulin; E10.42 Type 1 diabetes mellitus with diabetic polyneuropathy

== ENCOUNTER 2022-03-04 14:49 | Emergency (ER) | payer MEDICARE ==
[~2022-03-04] VITALS: Wt 63.5 kg
[~2022-03-04 14:49] MED LIST changes: +AUGMENTIN 500500 M1 PO; +LEVOFLOXACIN750 M2 PO; +TRAZODONE100 MG PO
[2022-03-04 16:10] VITALS: BP 132/70
[2022-03-04 16:22] LABS: BASO % 0.3 % (0.0-1.0); EOS # 0.2 10*3/uL (0.0-0.4); EOS % 1.7 % (1.0-4.0); HEMATOCRIT 24.3 % (42.0-52.0); LYMPH # 0.6 10*3/uL (1.3-4.4); LYMPH % 5.9 % (27.0-41.0); MEAN CELL VOLUME 87.4 fl (80.0-94.0); MEAN CORPUSCULAR HGB 27.7 pg (27.0-31.0); MEAN CORPUSCULAR HGB CONC 31.7 g/dl (33.0-37.0); MEAN PLATELET VOLUME 10.8 fl (9.6-12.3); MONO # 0.7 10*3/uL (0.1-1.0); MONO % 6.7 % (3.0-9.0); NEUT # 8.8 10*3/uL (2.3-7.9); PLATELET COUNT AUTOMATED 229 10*3/uL (130-400); RED BLOOD COUNT 2.78 10*6/uL (4.50-5.90); RED CELL DISTRI WIDTH 16.9 % (0-14.5); WHITE BLOOD COUNT 10.3 10*3/uL (4.8-10.8)
[2022-03-04 17:01] LABS: POTASSIUM 3.4 mmol/L (3.4-5.1); TOTAL PROTEIN 6.6 gm/dL (6.0-8.0)
[2022-03-12] MEDS ORDERED: FLOMAX0.4 MG PO (10:32)
== END 2022-03-04 20:53 | disposition home or self-care (01) ==
LOC: ED 14:49
PROVIDERS: Emergency Medicine
DX: E86.0 Dehydration (principal); Z79.899 Other long term (current) drug therapy; Z98.890 Other specified postprocedural states; Z87.891 Personal history of nicotine dependence

== ENCOUNTER 2022-03-18 09:31 | Inpatient (IN) | payer MEDICARE ==
[~2022-03-18] VITALS: Ht 177.8 cm; Wt 61.0 kg
[2022-03-18] VITALS (7 sets, daily range): BP systolic 136–160; BP diastolic 39–64
[2022-03-18 13:35] LABS: BASO % 0.4 % (0.0-1.0); EOS % 0.1 % (1.0-4.0); HEMATOCRIT 26.9 % (42.0-52.0); LYMPH # 0.4 10*3/uL (1.3-4.4); LYMPH % 5.1 % (27.0-41.0); MEAN CELL VOLUME 84.3 fl (80.0-94.0); MEAN CORPUSCULAR HGB 27.6 pg (27.0-31.0); MEAN CORPUSCULAR HGB CONC 32.7 g/dl (33.0-37.0); MEAN PLATELET VOLUME 10.3 fl (9.6-12.3); MONO # 0.7 10*3/uL (0.1-1.0); MONO % 9.4 % (3.0-9.0); NEUT # 6.2 10*3/uL (2.3-7.9); NEUT % 84.6 % (47.0-73.0); PLATELET COUNT AUTOMATED 237 10*3/uL (130-400); RED BLOOD COUNT 3.19 10*6/uL (4.50-5.90); WHITE BLOOD COUNT 7.3 10*3/uL (4.8-10.8)
[2022-03-18 23:20] LABS: ABG BASE EXCESS -1.9 mmol/L (-2.0-2.0); ARTERIAL BLOOD GAS PH 7.499 (7.35-7.45); ARTERIAL BLOOD GAS PO2 52.6 (80-90)
[2022-03-18 23:32] LABS: POTASSIUM 3.6 mmol/L (3.4-5.1)
[2022-03-18 23:48] LABS: BILIRUBIN Negative (Negative); BLOOD Negative (Negative); CLARITY Clear (Clear); COLOR Yellow (Yellow); GLUCOSE 3+ (Negative); KETONE Negative (Negative); LEUKO ESTERASE Negative (Negative); NITRITE Negative (Negative); SPECIFIC GRAVITY 1.015 (1.001-1.030); UROBILINOGEN 0.2 E.U./dl (0.0-1.0)
[2022-03-19] VITALS (7 sets, daily range): BP systolic 134–161; BP diastolic 56–76
[2022-03-19 02:29] LABS: ABG BASE EXCESS 4.1 mmol/L (-2.0-2.0); ARTERIAL BLOOD GAS PH 7.524 (7.35-7.45); ARTERIAL BLOOD GAS PO2 98.6 (80-90)
[2022-03-19 05:38] LABS: POTASSIUM 3.4 mmol/L (3.4-5.1)
[2022-03-19 06:15] LABS: HEMATOCRIT 26.3 % (42.0-52.0); MEAN CELL VOLUME 82.2 fl (80.0-94.0); MEAN CORPUSCULAR HGB 27.8 pg (27.0-31.0); MEAN CORPUSCULAR HGB CONC 33.8 g/dl (33.0-37.0); MEAN PLATELET VOLUME 10.7 fl (9.6-12.3); PLATELET COUNT AUTOMATED 214 10*3/uL (130-400); RED CELL DISTRI WIDTH 16.6 % (0-14.5); WHITE BLOOD COUNT 8.9 10*3/uL (4.8-10.8)
[2022-03-19 06:24] LABS: MANUAL DIFF REFLEX YES
[2022-03-19 07:06] LABS: BURR CELLS FEW; OVALOCYTES FEW; PLATELET SUFFICIENCY NORMAL (NORMAL); POLYCHROMASIA SLIGHT; SCHISTOCYTES FEW; TOTAL CELLS COUNTED 100 #CELLS; TOXIC GRANULATION SLIGHT; VACUOLATION OF NEUTROPHILS SLIGHT
[2022-03-19 17:21] LABS: POTASSIUM 2.8 mmol/L (3.4-5.1); TOTAL PROTEIN 6.2 gm/dL (6.0-8.0)
[2022-03-20] VITALS: BP 136/59
[2022-03-20 05:53] LABS: TOTAL PROTEIN 5.9 gm/dL (6.0-8.0)
[2022-03-20 05:56] LABS: BASO % 0.1 % (0.0-1.0); LYMPH # 0.3 10*3/uL (1.3-4.4); LYMPH % 2.9 % (27.0-41.0); MEAN CORPUSCULAR HGB 27.5 pg (27.0-31.0); MEAN CORPUSCULAR HGB CONC 33.6 g/dl (33.0-37.0); MEAN PLATELET VOLUME 11.2 fl (9.6-12.3); MONO # 0.7 10*3/uL (0.1-1.0); MONO % 7.4 % (3.0-9.0); PLATELET COUNT AUTOMATED 202 10*3/uL (130-400); RED BLOOD COUNT 3.05 10*6/uL (4.50-5.90); RED CELL DISTRI WIDTH 16.3 % (0-14.5)
[2022-03-20 06:18] LABS: POTASSIUM 3.9 mmol/L (3.4-5.1)
[2022-03-20 08:00] VITALS: BP 133/68
[2022-03-20 12:00] VITALS: BP 154/57
[2022-03-20 16:00] VITALS: BP 151/58
[2022-03-20 20:00] VITALS: BP 132/57
[2022-03-21] VITALS: BP 139/68
[2022-03-21 06:30] LABS: POTASSIUM 3.8 mmol/L (3.4-5.1); TOTAL PROTEIN 5.9 gm/dL (6.0-8.0)
[2022-03-21 08:40] VITALS: BP 144/64
[2022-03-21 12:00] VITALS: BP 128/59
[2022-03-21 16:00] VITALS: BP 154/62
[2022-03-21 16:21] LABS: BUN 47 mg/dl (9-23); CHLORIDE 88 mmol/L (98-107); POTASSIUM 4.4 mmol/L (3.4-5.1)
[2022-03-21 20:00] VITALS: BP 147/109
[2022-03-22] VITALS: BP 135/79
[2022-03-22 05:33] LABS: ALKALINE PHOSPHATASE 64 U/L (46-116); BUN 45 mg/dl (9-23); CHLORIDE 93 mmol/L (98-107); LDH 225 U/L (120-246); POTASSIUM 3.5 mmol/L (3.4-5.1); SGPT/ALT 8 U/L (10-49); TOTAL PROTEIN 5.8 gm/dL (6.0-8.0)
[2022-03-22 08:00] VITALS: BP 134/62
[2022-03-22 12:00] VITALS: BP 117/58; BP 155/76
[2022-03-22 16:00] VITALS: BP 148/67
[2022-03-22 20:00] VITALS: BP 160/107
[2022-03-23] VITALS: BP 147/67
[2022-03-23 05:29] LABS: ALKALINE PHOSPHATASE 67 U/L (46-116); CHLORIDE 96 mmol/L (98-107); LDH 217 U/L (120-246); POTASSIUM 3.7 mmol/L (3.4-5.1); SGPT/ALT 9 U/L (10-49); TOTAL PROTEIN 5.9 gm/dL (6.0-8.0)
[2022-03-23 05:30] LABS: BUN 28 mg/dl (9-23)
[2022-03-23 06:34] LABS: BASO % 0.2 % (0.0-1.0); HEMATOCRIT 28.5 % (42.0-52.0); LYMPH # 0.5 10*3/uL (1.3-4.4); LYMPH % 9.8 % (27.0-41.0); MEAN CELL VOLUME 83.8 fl (80.0-94.0); MEAN CORPUSCULAR HGB 26.8 pg (27.0-31.0); MEAN CORPUSCULAR HGB CONC 31.9 g/dl (33.0-37.0); MEAN PLATELET VOLUME 11.4 fl (9.6-12.3); MONO # 0.7 10*3/uL (0.1-1.0); MONO % 13.5 % (3.0-9.0); NEUT # 4.1 10*3/uL (2.3-7.9); NEUT % 75.2 % (47.0-73.0); PLATELET COUNT AUTOMATED 201 10*3/uL (130-400); WHITE BLOOD COUNT 5.5 10*3/uL (4.8-10.8)
[2022-03-23 08:00] VITALS: BP 149/70
[2022-03-23 12:00] VITALS: BP 141/61; BP 150/73
[2022-03-23 16:11] VITALS: BP 144/79
[2022-03-23 20:00] VITALS: BP 132/67
[2022-03-24] VITALS: BP 141/91
[2022-03-24 08:00] VITALS: BP 162/80
[2022-03-24 08:05] LABS: ALKALINE PHOSPHATASE 75 U/L (46-116); BUN 20 mg/dl (9-23); CHLORIDE 96 mmol/L (98-107); POTASSIUM 3.4 mmol/L (3.4-5.1); SGPT/ALT 13 U/L (10-49); TOTAL PROTEIN 6.1 gm/dL (6.0-8.0)
[2022-03-24 12:00] VITALS: BP 138/78
[2022-03-24 16:00] VITALS: BP 158/75
[2022-03-24 20:00] VITALS: BP 153/80
[2022-03-25] VITALS: BP 166/90
[2022-03-25 10:05] LABS: BASO % 0.1 % (0.0-1.0); EOS # 0.1 10*3/uL (0.0-0.4); EOS % 0.9 % (1.0-4.0); HEMATOCRIT 33.1 % (42.0-52.0); LYMPH # 0.8 10*3/uL (1.3-4.4); LYMPH % 10.6 % (27.0-41.0); MEAN CELL VOLUME 82.1 fl (80.0-94.0); MEAN CORPUSCULAR HGB 26.8 pg (27.0-31.0); MEAN CORPUSCULAR HGB CONC 32.6 g/dl (33.0-37.0); MEAN PLATELET VOLUME 10.5 fl (9.6-12.3); MONO % 13.1 % (3.0-9.0); NEUT # 5.6 10*3/uL (2.3-7.9); NEUT % 74.4 % (47.0-73.0); PLATELET COUNT AUTOMATED 192 10*3/uL (130-400); RED BLOOD COUNT 4.03 10*6/uL (4.50-5.90); RED CELL DISTRI WIDTH 16.2 % (0-14.5); WHITE BLOOD COUNT 7.5 10*3/uL (4.8-10.8)
[2022-03-25 10:27] LABS: ALKALINE PHOSPHATASE 85 U/L (46-116); BUN 13 mg/dl (9-23); CHLORIDE 99 mmol/L (98-107); POTASSIUM 3.5 mmol/L (3.4-5.1); SGPT/ALT 15 U/L (10-49); TOTAL PROTEIN 6.3 gm/dL (6.0-8.0)
[2022-03-25 12:00] VITALS: BP 119/49
[2022-03-25 16:00] VITALS: BP 126/61
[2022-03-25 20:00] VITALS: BP 128/72
[2022-03-26 08:00] VITALS: BP 158/86
[2022-03-26 12:00] VITALS: BP 148/65
[2022-03-26 14:47] LABS: ALKALINE PHOSPHATASE 97 U/L (46-116); BUN 10 mg/dl (9-23); CHLORIDE 100 mmol/L (98-107); POTASSIUM 4.1 mmol/L (3.4-5.1); SGPT/ALT 11 U/L (10-49); TOTAL PROTEIN 6.5 gm/dL (6.0-8.0)
[2022-03-26 14:48] LABS: BASO % 0.2 % (0.0-1.0); EOS # 0.1 10*3/uL (0.0-0.4); EOS % 1.3 % (1.0-4.0); HEMATOCRIT 31.6 % (42.0-52.0); LYMPH # 0.3 10*3/uL (1.3-4.4); LYMPH % 2.8 % (27.0-41.0); MEAN CELL VOLUME 82.7 fl (80.0-94.0); MEAN CORPUSCULAR HGB CONC 32.6 g/dl (33.0-37.0); MEAN PLATELET VOLUME 10.9 fl (9.6-12.3); MONO # 0.8 10*3/uL (0.1-1.0); MONO % 7.8 % (3.0-9.0); NEUT # 8.4 10*3/uL (2.3-7.9); NEUT % 87.2 % (47.0-73.0); PLATELET COUNT AUTOMATED 187 10*3/uL (130-400); RED BLOOD COUNT 3.82 10*6/uL (4.50-5.90); RED CELL DISTRI WIDTH 16.4 % (0-14.5); WHITE BLOOD COUNT 9.7 10*3/uL (4.8-10.8)
[2022-03-26 16:00] VITALS: BP 157/75
[2022-03-27] VITALS: BP 154/63
[2022-03-27 08:00] VITALS: BP 154/80
[2022-03-27 12:00] VITALS: BP 152/82
[2022-03-27 16:00] VITALS: BP 158/80
[2022-03-27] MEDS ORDERED: TAMSULOSIN HCL0.4 MG PO (16:29)
[2022-03-27 20:00] VITALS: BP 173/76
[2022-03-28] VITALS: BP 149/83
[2022-03-28 07:04] LABS: HEMATOCRIT 34.2 % (42.0-52.0); MEAN CELL VOLUME 83.4 fl (80.0-94.0); MEAN CORPUSCULAR HGB 27.3 pg (27.0-31.0); MEAN CORPUSCULAR HGB CONC 32.7 g/dl (33.0-37.0); MEAN PLATELET VOLUME 10.6 fl (9.6-12.3); PLATELET COUNT AUTOMATED 240 10*3/uL (130-400); RED CELL DISTRI WIDTH 16.4 % (0-14.5); WHITE BLOOD COUNT 4.7 10*3/uL (4.8-10.8)
[2022-03-28 07:08] LABS: MANUAL DIFF REFLEX YES
[2022-03-28 07:22] LABS: BASOPHILS 1 % (0-1); TOTAL CELLS COUNTED 100 #CELLS
[2022-03-28 07:23] LABS: BURR CELLS MODERATE; OVALOCYTES FEW; PLATELET SUFFICIENCY NORMAL (NORMAL); SCHISTOCYTES FEW
[2022-03-28 08:00] VITALS: BP 135/71
[2022-03-28 09:00] LABS: ALKALINE PHOSPHATASE 96 U/L (46-116); BUN 12 mg/dl (9-23); CHLORIDE 101 mmol/L (98-107); POTASSIUM 4.6 mmol/L (3.4-5.1); SGPT/ALT 10 U/L (10-49); TOTAL PROTEIN 6.8 gm/dL (6.0-8.0)
[2022-03-28 12:00] VITALS: BP 149/75
[2022-03-28] MEDS ORDERED: FUROSEMIDE80 MG PO (13:45)
[2022-03-28 16:00] VITALS: BP 140/69
[2022-03-28 20:00] VITALS: BP 127/78
[2022-03-28 20:54] LABS: BASO % 0.3 % (0.0-1.0); EOS # 0.1 10*3/uL (0.0-0.4); EOS % 0.9 % (1.0-4.0); HEMATOCRIT 32.8 % (42.0-52.0); LYMPH # 0.4 10*3/uL (1.3-4.4); LYMPH % 5.6 % (27.0-41.0); MEAN CORPUSCULAR HGB 26.8 pg (27.0-31.0); MEAN CORPUSCULAR HGB CONC 32.6 g/dl (33.0-37.0); MEAN PLATELET VOLUME 11.3 fl (9.6-12.3); MONO # 1.1 10*3/uL (0.1-1.0); MONO % 14.8 % (3.0-9.0); NEUT # 5.9 10*3/uL (2.3-7.9); NEUT % 77.7 % (47.0-73.0); PLATELET COUNT AUTOMATED 276 10*3/uL (130-400); RED CELL DISTRI WIDTH 16.5 % (0-14.5); WHITE BLOOD COUNT 7.6 10*3/uL (4.8-10.8)
[2022-03-29] VITALS: BP 109/57
[2022-03-29 05:27] LABS: BUN 12 mg/dl (9-23); CHLORIDE 102 mmol/L (98-107); POTASSIUM 4.4 mmol/L (3.4-5.1)
[2022-03-29 08:00] VITALS: BP 145/50
[2022-03-29 12:00] VITALS: BP 142/52
[2022-03-29 16:00] VITALS: BP 164/77
== END 2022-03-29 16:20 | DRG 177 ==
LOC: ED 09:31 → EDHOLD 16:10 → 4E 16:10 → 5E 17:54 → 4E 22:43
PROVIDERS: Emergency Medicine; Internal Medicine; Internal Medicine Critical Care Medicine; Student in an Organized Health Care Education/Training Program; ADMIT Internal Medicine; ATTEND Internal Medicine
PROC: XW033E5 Introduction of Remdesivir Anti-infective into Peripheral Vein, Percutaneous Approach, New Technology Group 5 (ICD-10-PCS; principal; 2022-03-19)
PROC: 5A09357 Assistance with Respiratory Ventilation, Less than 24 Consecutive Hours, Continuous Positive Airway Pressure (ICD-10-PCS; 2022-03-19)
DX: U07.1 COVID-19 (principal); I50.33 Acute on chronic diastolic (congestive) heart failure; J12.82 Pneumonia due to coronavirus disease 2019; J96.01 Acute respiratory failure with hypoxia; D84.9 Immunodeficiency, unspecified; E87.1 Hypo-osmolality and hyponatremia; N13.30 Unspecified hydronephrosis; N17.9 Acute kidney failure, unspecified; I13.0 Hypertensive heart and chronic kidney disease with heart failure and stage 1 through stage 4 chronic kidney disease, or unspecified chronic kidney disease; J44.0 Chronic obstructive pulmonary disease with (acute) lower respiratory infection; Z94.0 Kidney transplant status; N18.4 Chronic kidney disease, stage 4 (severe); I48.0 Paroxysmal atrial fibrillation; I25.10 Atherosclerotic heart disease of native coronary artery without angina pectoris; E78.5 Hyperlipidemia, unspecified; E03.9 Hypothyroidism, unspecified; R33.8 Other retention of urine; E86.0 Dehydration; E87.6 Hypokalemia; S90.821A Blister (nonthermal), right foot, initial encounter; S90.822A Blister (nonthermal), left foot, initial encounter; X58.XXXA Exposure to other specified factors, initial encounter; L89.890 Pressure ulcer of other site, unstageable; E11.22 Type 2 diabetes mellitus with diabetic chronic kidney disease; E11.65 Type 2 diabetes mellitus with hyperglycemia; J44.9 Chronic obstructive pulmonary disease, unspecified; K21.9 Gastro-esophageal reflux disease without esophagitis; E11.51 Type 2 diabetes mellitus with diabetic peripheral angiopathy without gangrene; Z79.4 Long term (current) use of insulin; Z82.49 Family history of ischemic heart disease and other diseases of the circulatory system; Z87.891 Personal history of nicotine dependence; Z80.42 Family history of malignant neoplasm of prostate; Z79.899 Other long term (current) drug therapy; Y93.89 Activity, other specified; Y92.89 Other specified places as the place of occurrence of the external cause; Y99.8 Other external cause status

== ENCOUNTER → 2022-04-29 | Outpatient (CLI) | payer MEDICARE ==
[2022-04-29 16:10] LABS: BASO # 0.1 10*3/uL (0.0-0.1); BASO % 0.5 % (0.0-1.0); EOS # 0.1 10*3/uL (0.0-0.4); EOS % 0.9 % (1.0-4.0); HEMATOCRIT 31.6 % (42.0-52.0); LYMPH # 0.6 10*3/uL (1.3-4.4); LYMPH % 3.9 % (27.0-41.0); MEAN CELL VOLUME 84.9 fl (80.0-94.0); MEAN CORPUSCULAR HGB 26.1 pg (27.0-31.0); MEAN CORPUSCULAR HGB CONC 30.7 g/dl (33.0-37.0); MEAN PLATELET VOLUME 10.5 fl (9.6-12.3); MONO # 1.1 10*3/uL (0.1-1.0); MONO % 7.5 % (3.0-9.0); NEUT # 12.8 10*3/uL (2.3-7.9); NEUT % 86.5 % (47.0-73.0); PLATELET COUNT AUTOMATED 360 10*3/uL (130-400); RED BLOOD COUNT 3.72 10*6/uL (4.50-5.90); RED CELL DISTRI WIDTH 17.7 % (0-14.5); WHITE BLOOD COUNT 14.8 10*3/uL (4.8-10.8)
[2022-04-29 16:13] LABS: BILIRUBIN Negative (Negative); BLOOD 2+ (Negative); CLARITY Turbid (Clear); COLOR Yellow (Yellow); GLUCOSE Negative (Negative); KETONE Negative (Negative); LEUKO ESTERASE 3+ (Negative); NITRITE Negative (Negative); PH 6.5 (4.5-8.0); UROBILINOGEN 0.2 E.U./dl (0.0-1.0)
[2022-04-29 16:28] LABS: POTASSIUM 4.6 mmol/L (3.4-5.1); TOTAL PROTEIN 7.8 gm/dL (6.0-8.0)
[2022-04-29 16:53] LABS: BACTERIA 3+; RBC 16-20 rbc/hpf (0-2); WBC TNTC wbc/hpf (0-5)
== END | disposition home or self-care (01) ==
LOC: LAB 15:49
PROVIDERS: ATTEND Internal Medicine
DX: E10.29 Type 1 diabetes mellitus with other diabetic kidney complication (principal)

== ENCOUNTER 2022-05-05 12:17 | Emergency (ER) | payer MEDICARE ==
[~2022-05-05] VITALS: Wt 63.5 kg
[2022-05-05 12:46] VITALS: BP 164/64
== END 2022-05-05 15:14 | disposition left against medical advice (07) ==
LOC: ED 12:17
DX: T83.091A Other mechanical complication of indwelling urethral catheter, initial encounter (principal); Y84.6 Urinary catheterization as the cause of abnormal reaction of the patient, or of later complication, without mention of misadventure at the time of the procedure; Y92.89 Other specified places as the place of occurrence of the external cause

== ENCOUNTER → 2022-05-13 | Outpatient (CLI) | payer MEDICARE | END | disposition home or self-care (01) | LOC: CT 00:33 | PROVIDERS: ATTEND Surgery | DX: M25.821 Other specified joint disorders, right elbow (principal) ==

== ENCOUNTER 2022-05-31 21:37 | Emergency (ER) | payer MEDICARE ==
[~2022-05-31] VITALS: Ht 177.8 cm; Wt 63.5 kg
== END 2022-05-31 23:26 | disposition home or self-care (01) ==
LOC: ED 21:37
DX: T83.091A Other mechanical complication of indwelling urethral catheter, initial encounter (principal); I10 Essential (primary) hypertension; J44.9 Chronic obstructive pulmonary disease, unspecified; E03.9 Hypothyroidism, unspecified; E11.40 Type 2 diabetes mellitus with diabetic neuropathy, unspecified; Z96.41 Presence of insulin pump (external) (internal); Z98.890 Other specified postprocedural states; Z87.891 Personal history of nicotine dependence

== ENCOUNTER → 2022-06-09 | Outpatient (CLI) | payer MEDICARE | END | disposition home or self-care (01) | LOC: RAD 13:47 | PROVIDERS: ATTEND Internal Medicine | DX: J44.9 Chronic obstructive pulmonary disease, unspecified (principal); Z95.4 Presence of other heart-valve replacement ==

== ENCOUNTER → 2022-07-08 | Outpatient (CLI) | payer MEDICARE ==
[2022-07-08 17:38] LABS: BILIRUBIN Negative (Negative); BLOOD Negative (Negative); CLARITY Clear (Clear); COLOR Yellow (Yellow); GLUCOSE Negative (Negative); KETONE Negative (Negative); LEUKO ESTERASE 2+ (Negative); NITRITE Negative (Negative); PH 6.5 (4.5-8.0); UROBILINOGEN 0.2 E.U./dl (0.0-1.0)
[2022-07-08 17:46] LABS: BACTERIA 1+; EPITHELIAL CELLS 0-2; RBC 0-2 rbc/hpf (0-2); WBC 16-20 wbc/hpf (0-5)
[2022-07-08 18:05] LABS: HEMATOCRIT 34.6 % (42.0-52.0); MEAN CELL VOLUME 84.8 fl (80.0-94.0); MEAN CORPUSCULAR HGB 26.2 pg (27.0-31.0); MEAN CORPUSCULAR HGB CONC 30.9 g/dl (33.0-37.0); MEAN PLATELET VOLUME 10.6 fl (9.6-12.3); PLATELET COUNT AUTOMATED 356 10*3/uL (130-400); RED BLOOD COUNT 4.08 10*6/uL (4.50-5.90); RED CELL DISTRI WIDTH 18.4 % (0-14.5); WHITE BLOOD COUNT 17.5 10*3/uL (4.8-10.8)
[2022-07-08 18:07] LABS: MANUAL DIFF REFLEX YES
[2022-07-08 18:29] LABS: POTASSIUM 3.7 mmol/L (3.4-5.1); TOTAL PROTEIN 8.7 gm/dL (6.0-8.0)
[2022-07-08 18:48] LABS: BASOPHILS 1 % (0-1); PLATELET SUFFICIENCY NORMAL (NORMAL); POLYCHROMASIA SLIGHT; TOTAL CELLS COUNTED 100 #CELLS; TOXIC GRANULATION SLIGHT
[2022-07-08 18:51] LABS: BURR CELLS FEW; OVALOCYTES FEW
== END | disposition home or self-care (01) ==
LOC: LAB 17:11
PROVIDERS: ATTEND Internal Medicine
DX: E10.29 Type 1 diabetes mellitus with other diabetic kidney complication (principal)

== ENCOUNTER 2022-08-22 03:00 | Emergency (ER) | payer MEDICARE ==
[~2022-08-22] VITALS: Wt 69.4 kg
[2022-08-22] MEDS ORDERED: ALPRAZOLAM0.5 M3 PO (03:30)
[2022-08-22] MEDS ORDERED: ASPIRIN ADULT L81 M1 PO (03:34)
[2022-08-22] MEDS ORDERED: ATORVASTATIN CA40 M1 PO (03:35)
[2022-08-22] MEDS ORDERED: CELLCEPT500 MG PO (03:36)
[2022-08-22] MEDS ORDERED: CARVEDILOL12.5 MG PO (03:36)
[2022-08-22] MEDS ORDERED: ACETAMINOPHEN500 M4 PO (03:37)
[2022-08-22] MEDS ORDERED: OXYCODONE HCL5 MG PO (03:42)
[2022-08-22] MEDS ORDERED: DULOXETINE HCL60 MG PO (03:43)
[2022-08-22] MEDS ORDERED: Duragesic 50 M50 MCG TD (03:43)
[2022-08-22] MEDS ORDERED: INSULIN LI100 UNIT/2 SQ (03:44)
[2022-08-22] MEDS ORDERED: BUDESONIDE0.5 MG/2 M INH (03:45)
[2022-08-22] MEDS ORDERED: LANTUS SOL100 UNIT/1 SC (03:46)
[2022-08-22] MEDS ORDERED: NIFEDIPINE ER60 M1 PO (03:46)
[2022-08-22] MEDS ORDERED: ONDANSETRON HYDR4 MG PO (03:47)
[2022-08-22] MEDS ORDERED: NIFEDIPINE ER90 M1 PO (03:47)
[2022-08-22] MEDS ORDERED: OXYCODONE HYDRO15 MG PO (03:47)
[2022-08-22] MEDS ORDERED: QUETIAPINE FUMA25 MG PO (03:48)
[2022-08-22] MEDS ORDERED: VITAMIN D325 MCG PO (03:53)
[2022-08-22] MEDS ORDERED: FERROUS SULFAT325 MG PO (03:54)
[2022-08-22] MEDS ORDERED: FLOMAX0.4 MG PO (03:54)
[2022-08-22] MEDS ORDERED: FUROSEMIDE80 MG PO (03:55)
[2022-08-22] MEDS ORDERED: ADULT TUSS100 MG/5 M PO (03:55)
[2022-08-22] MEDS ORDERED: HUMALOG100 UNIT/2 SQ (03:56)
[2022-08-22] MEDS ORDERED: HYDRALAZINE HC100 MG PO (03:56)
[2022-08-22] MEDS ORDERED: Ipratropium Brom3 ML INH (03:57)
[2022-08-22] MEDS ORDERED: SENNA8.6 MG PO (03:58)
[2022-08-22 04:00] LABS: MEAN CELL VOLUME 84.5 fl (80.0-94.0); MEAN CORPUSCULAR HGB 27.7 pg (27.0-31.0); MEAN CORPUSCULAR HGB CONC 32.8 g/dl (33.0-37.0); MEAN PLATELET VOLUME 10.8 fl (9.6-12.3); PLATELET COUNT AUTOMATED 318 10*3/uL (130-400); RED BLOOD COUNT 2.96 10*6/uL (4.50-5.90); RED CELL DISTRI WIDTH 17.2 % (0-14.5)
[2022-08-22] MEDS ORDERED: TACROLIMUS1 M1 PO ×3 (04:00→04:02)
[2022-08-22] MEDS ORDERED: ZANAFLEX4 M1 PO (04:02)
[2022-08-22 04:12] LABS: MANUAL DIFF REFLEX YES
[2022-08-22 04:19] LABS: BASOPHILS 1 % (0-1); TOTAL CELLS COUNTED 100 #CELLS
[2022-08-22 04:20] LABS: PLATELET SUFFICIENCY NORMAL (NORMAL)
[2022-08-22 04:28] LABS: POTASSIUM 4.9 mmol/L (3.4-5.1); TOTAL PROTEIN 7.4 gm/dL (6.0-8.0)
[2022-08-22 04:32] LABS: ABG BASE EXCESS -3.2 mmol/L (-2.0-2.0); ARTERIAL BLOOD GAS PH 7.37 (7.35-7.45); ARTERIAL BLOOD GAS PO2 73.9 (80-90)
[2022-08-22 11:06] VITALS: BP 169/72
== END 2022-08-22 14:00 | disposition short-term general hospital (02) ==
LOC: ED 03:00
PROVIDERS: Internal Medicine
DX: R65.20 Severe sepsis without septic shock (principal); J96.91 Respiratory failure, unspecified with hypoxia; N17.9 Acute kidney failure, unspecified; N18.9 Chronic kidney disease, unspecified; J18.9 Pneumonia, unspecified organism; D64.9 Anemia, unspecified; J81.1 Chronic pulmonary edema; Z88.8 Allergy status to other drugs, medicaments and biological substances; Z98.890 Other specified postprocedural states; Z87.891 Personal history of nicotine dependence; Z79.4 Long term (current) use of insulin; I10 Essential (primary) hypertension; J44.9 Chronic obstructive pulmonary disease, unspecified; E03.9 Hypothyroidism, unspecified; E11.40 Type 2 diabetes mellitus with diabetic neuropathy, unspecified; Z96.41 Presence of insulin pump (external) (internal)

== ENCOUNTER 2022-10-01 15:59 | Emergency (ER) | payer MEDICARE ==
[~2022-10-01] VITALS: Ht 172.7 cm; Wt 63.5 kg
[~2022-10-01 15:59] MED LIST changes: +ACETAMINOPHEN500 M4 PO; +ADULT TUSS100 MG/5 M PO; +ALPRAZOLAM0.5 M3 PO; +AMOX-CLAV 500-1 EACH PO; +ASPIRIN ADULT L81 M1 PO; +AVPAK AZITHROM250 M1 PO; +BUDESONIDE0.5 MG/2 M INH; +BUMETANIDE2 MG PO; +CARVEDILOL12.5 MG PO; +DULOXETINE HCL60 MG PO; +Duragesic 50 M50 MCG TD; +FERROUS SULFAT325 MG PO; +HUMALOG100 UNIT/2 SQ; +INSULIN LI100 UNIT/2 SQ; +NIFEDIPINE ER60 M1 PO; +NIFEDIPINE ER90 M1 PO; +ONDANSETRON HYDR4 MG PO; +OXYCODONE HCL5 MG PO; +OXYCODONE HYDRO15 MG PO; +PIPERACIL-TAZO4.5 GM IV; +QUETIAPINE FUMA25 MG PO; +SENNA8.6 MG PO; +VANCO 1 GR1 GM/250 M IV; +VITAMIN D325 MCG PO; +ZANAFLEX4 M1 PO
[2022-10-01 16:03] VITALS: BP 138/62
[2022-10-01 16:42] LABS: BASO # 0.1 10*3/uL (0.0-0.1); BASO % 0.8 % (0.0-1.0); EOS # 0.4 10*3/uL (0.0-0.4); EOS % 4.2 % (1.0-4.0); HEMATOCRIT 31.1 % (42.0-52.0); LYMPH # 0.5 10*3/uL (1.3-4.4); MEAN CELL VOLUME 83.2 fl (80.0-94.0); MEAN CORPUSCULAR HGB 26.5 pg (27.0-31.0); MEAN CORPUSCULAR HGB CONC 31.8 g/dl (33.0-37.0); MEAN PLATELET VOLUME 10.7 fl (9.6-12.3); MONO # 1.1 10*3/uL (0.1-1.0); MONO % 10.1 % (3.0-9.0); NEUT # 8.4 10*3/uL (2.3-7.9); NEUT % 79.4 % (47.0-73.0); PLATELET COUNT AUTOMATED 276 10*3/uL (130-400); RED BLOOD COUNT 3.74 10*6/uL (4.50-5.90); RED CELL DISTRI WIDTH 16.7 % (0-14.5); WHITE BLOOD COUNT 10.6 10*3/uL (4.8-10.8)
[2022-10-01 16:59] LABS: ACT PARTIAL THROMBO TIME 37.6 SECONDS (20.0-32.1); INTERNATIONAL NORM RATIO 1.1 (2.0-3.5)
[2022-10-01 17:08] LABS: POTASSIUM 3.5 mmol/L (3.4-5.1)
[2022-10-01 17:10] LABS: BILIRUBIN Negative (Negative); BLOOD Trace-Lysed (Negative); CLARITY Clear (Clear); COLOR Yellow (Yellow); GLUCOSE 1+ (Negative); KETONE Negative (Negative); LEUKO ESTERASE 2+ (Negative); NITRITE Negative (Negative); PH 5.5 (4.5-8.0); UROBILINOGEN 0.2 E.U./dl (0.0-1.0)
[2022-10-01 17:26] LABS: BACTERIA 3+; EPITHELIAL CELLS 0-2; RBC 0-2 rbc/hpf (0-2); WBC 16-20 wbc/hpf (0-5); YEAST 3+
== END 2022-10-01 17:49 ==
LOC: ED 15:59
PROVIDERS: Emergency Medicine
DX: R53.1 Weakness (principal); R40.0 Somnolence; Z88.8 Allergy status to other drugs, medicaments and biological substances; Z79.2 Long term (current) use of antibiotics; Z79.899 Other long term (current) drug therapy; Z79.82 Long term (current) use of aspirin; Z79.4 Long term (current) use of insulin; Z98.890 Other specified postprocedural states; Z94.0 Kidney transplant status; Z87.891 Personal history of nicotine dependence

== ENCOUNTER 2022-10-03 10:02 | Emergency (ER) | payer MEDICARE ==
[2022-10-03 10:09] VITALS: BP 145/54
[2022-10-03 10:33] LABS: BASO # 0.1 10*3/uL (0.0-0.1); BASO % 1.1 % (0.0-1.0); EOS # 0.3 10*3/uL (0.0-0.4); HEMATOCRIT 27.4 % (42.0-52.0); LYMPH # 0.5 10*3/uL (1.3-4.4); LYMPH % 7.9 % (27.0-41.0); MEAN CELL VOLUME 81.8 fl (80.0-94.0); MEAN CORPUSCULAR HGB 26.3 pg (27.0-31.0); MEAN CORPUSCULAR HGB CONC 32.1 g/dl (33.0-37.0); MEAN PLATELET VOLUME 10.3 fl (9.6-12.3); MONO # 0.9 10*3/uL (0.1-1.0); MONO % 13.5 % (3.0-9.0); NEUT # 4.8 10*3/uL (2.3-7.9); PLATELET COUNT AUTOMATED 299 10*3/uL (130-400); RED BLOOD COUNT 3.35 10*6/uL (4.50-5.90); RED CELL DISTRI WIDTH 16.2 % (0-14.5); WHITE BLOOD COUNT 6.6 10*3/uL (4.8-10.8)
[2022-10-03 10:45] LABS: ACT PARTIAL THROMBO TIME 28.8 SECONDS (20.0-32.1); INTERNATIONAL NORM RATIO 1.1 (2.0-3.5)
[2022-10-03 11:10] LABS: POTASSIUM 3.6 mmol/L (3.4-5.1); TOTAL PROTEIN 7.5 gm/dL (6.0-8.0)
[2022-10-03 11:35] LABS: BILIRUBIN Negative (Negative); BLOOD Negative (Negative); CLARITY Cloudy (Clear); COLOR Yellow (Yellow); GLUCOSE Negative (Negative); KETONE Negative (Negative); LEUKO ESTERASE 3+ (Negative); NITRITE Negative (Negative); PH 5.5 (4.5-8.0); UROBILINOGEN 0.2 E.U./dl (0.0-1.0)
[2022-10-03 11:42] LABS: BACTERIA 3+; WBC TNTC wbc/hpf (0-5); YEAST TRACE
== END 2022-10-03 12:03 ==
LOC: ED 10:02
PROVIDERS: Internal Medicine
DX: R33.9 Retention of urine, unspecified (principal); R41.82 Altered mental status, unspecified; E11.22 Type 2 diabetes mellitus with diabetic chronic kidney disease; I13.0 Hypertensive heart and chronic kidney disease with heart failure and stage 1 through stage 4 chronic kidney disease, or unspecified chronic kidney disease; N18.30 Chronic kidney disease, stage 3 unspecified; I50.9 Heart failure, unspecified; Z94.0 Kidney transplant status; Z88.8 Allergy status to other drugs, medicaments and biological substances; Z79.899 Other long term (current) drug therapy; Z79.2 Long term (current) use of antibiotics; Z79.82 Long term (current) use of aspirin; Z79.4 Long term (current) use of insulin; Z98.890 Other specified postprocedural states; Z95.5 Presence of coronary angioplasty implant and graft; Z87.891 Personal history of nicotine dependence

== ENCOUNTER 2022-10-04 08:32 | Inpatient (IN) | payer MEDICARE ==
[~2022-10-04] VITALS: Ht 178 cm; Wt 65.1 kg
[2022-10-04 08:45] VITALS: BP 167/65
[2022-10-04 09:21] LABS: BASO # 0.1 10*3/uL (0.0-0.1); EOS # 0.2 10*3/uL (0.0-0.4); EOS % 4.1 % (1.0-4.0); HEMATOCRIT 28.2 % (42.0-52.0); LYMPH # 0.7 10*3/uL (1.3-4.4); LYMPH % 13.2 % (27.0-41.0); MEAN CORPUSCULAR HGB 26.5 pg (27.0-31.0); MEAN CORPUSCULAR HGB CONC 32.3 g/dl (33.0-37.0); MEAN PLATELET VOLUME 10.6 fl (9.6-12.3); MONO # 0.7 10*3/uL (0.1-1.0); MONO % 14.4 % (3.0-9.0); NEUT # 3.5 10*3/uL (2.3-7.9); NEUT % 66.9 % (47.0-73.0); PLATELET COUNT AUTOMATED 335 10*3/uL (130-400); RED BLOOD COUNT 3.44 10*6/uL (4.50-5.90); RED CELL DISTRI WIDTH 16.4 % (0-14.5); WHITE BLOOD COUNT 5.2 10*3/uL (4.8-10.8)
[2022-10-04 09:43] LABS: POTASSIUM 4.5 mmol/L (3.4-5.1); TOTAL PROTEIN 7.7 gm/dL (6.0-8.0)
[2022-10-04 09:44] LABS: ACT PARTIAL THROMBO TIME 35.1 SECONDS (20.0-32.1); INTERNATIONAL NORM RATIO 1.1 (2.0-3.5)
[2022-10-04 10:51] LABS: BILIRUBIN Negative (Negative); BLOOD 1+ (Negative); CLARITY Turbid (Clear); COLOR Yellow (Yellow); GLUCOSE Negative (Negative); KETONE Trace (Negative); LEUKO ESTERASE 3+ (Negative); NITRITE Negative (Negative); PH 5.5 (4.5-8.0); SPECIFIC GRAVITY 1.015 (1.001-1.030); UROBILINOGEN 0.2 E.U./dl (0.0-1.0)
[2022-10-04 11:01] LABS: WBC TNTC wbc/hpf (0-5)
[2022-10-04 11:02] LABS: BACTERIA 4+; YEAST 3+
[2022-10-04 13:35] VITALS: BP 166/59
[2022-10-04 16:00] VITALS: BP 181/66
[2022-10-04 18:40] VITALS: BP 183/76
[2022-10-04 19:01] LABS: CHLORIDE 91 mmol/L (98-107)
[2022-10-04 19:03] LABS: POTASSIUM 5.5 mmol/L (3.4-5.1)
[2022-10-04 19:04] LABS: BUN 44 mg/dl (9-23)
[2022-10-04 20:00] VITALS: BP 183/76
[2022-10-05] VITALS: BP 137/61
[2022-10-05 04:00] VITALS: BP 164/77
[2022-10-05 05:16] LABS: BUN 36 mg/dl (9-23); CHLORIDE 97 mmol/L (98-107)
[2022-10-05 05:17] LABS: POTASSIUM 4.4 mmol/L (3.4-5.1)
[2022-10-05 06:23] LABS: BASO # 0.1 10*3/uL (0.0-0.1); BASO % 1.2 % (0.0-1.0); EOS # 0.3 10*3/uL (0.0-0.4); HEMATOCRIT 29.7 % (42.0-52.0); LYMPH # 0.8 10*3/uL (1.3-4.4); LYMPH % 14.4 % (27.0-41.0); MEAN CELL VOLUME 81.6 fl (80.0-94.0); MEAN CORPUSCULAR HGB 26.4 pg (27.0-31.0); MEAN CORPUSCULAR HGB CONC 32.3 g/dl (33.0-37.0); MEAN PLATELET VOLUME 11.2 fl (9.6-12.3); MONO # 0.9 10*3/uL (0.1-1.0); MONO % 17.9 % (3.0-9.0); NEUT # 3.1 10*3/uL (2.3-7.9); NEUT % 59.9 % (47.0-73.0); PLATELET COUNT AUTOMATED 331 10*3/uL (130-400); RED BLOOD COUNT 3.64 10*6/uL (4.50-5.90); RED CELL DISTRI WIDTH 16.3 % (0-14.5); WHITE BLOOD COUNT 5.2 10*3/uL (4.8-10.8)
[2022-10-05 08:00] VITALS: BP 156/68
[2022-10-05 12:00] VITALS: BP 119/58
[2022-10-05 15:57] VITALS: BP 136/52
[2022-10-05 20:00] VITALS: BP 110/51
[2022-10-06] VITALS: BP 120/49
[2022-10-06 06:31] LABS: BASO # 0.1 10*3/uL (0.0-0.1); BASO % 1.6 % (0.0-1.0); EOS # 0.6 10*3/uL (0.0-0.4); EOS % 11.8 % (1.0-4.0); HEMATOCRIT 27.1 % (42.0-52.0); LYMPH # 0.8 10*3/uL (1.3-4.4); LYMPH % 16.6 % (27.0-41.0); MEAN CELL VOLUME 82.1 fl (80.0-94.0); MEAN CORPUSCULAR HGB 26.7 pg (27.0-31.0); MEAN CORPUSCULAR HGB CONC 32.5 g/dl (33.0-37.0); MEAN PLATELET VOLUME 10.2 fl (9.6-12.3); MONO # 0.6 10*3/uL (0.1-1.0); MONO % 12.8 % (3.0-9.0); NEUT # 2.9 10*3/uL (2.3-7.9); NEUT % 56.8 % (47.0-73.0); PLATELET COUNT AUTOMATED 332 10*3/uL (130-400); RED CELL DISTRI WIDTH 16.4 % (0-14.5)
[2022-10-06 06:57] LABS: ALKALINE PHOSPHATASE 85 U/L (46-116); BUN 34 mg/dl (9-23); CHLORIDE 98 mmol/L (98-107); POTASSIUM 4.4 mmol/L (3.4-5.1); SGPT/ALT 7 U/L (10-49); TOTAL PROTEIN 6.6 gm/dL (6.0-8.0)
[2022-10-06 08:00] VITALS: BP 127/61
[2022-10-06 11:59] VITALS: BP 98/44
[2022-10-06 16:00] VITALS: BP 159/61
[2022-10-06] MEDS ORDERED: AUGMENTIN 500500 M1 PO (17:58)
[2022-10-06 20:00] VITALS: BP 118/51
[2022-10-07] VITALS: BP 141/53
[2022-10-07 05:48] LABS: ALKALINE PHOSPHATASE 87 U/L (46-116); BUN 28 mg/dl (9-23); CHLORIDE 101 mmol/L (98-107); POTASSIUM 4.9 mmol/L (3.4-5.1); SGPT/ALT 9 U/L (10-49); TOTAL PROTEIN 7.3 gm/dL (6.0-8.0)
[2022-10-07 06:05] LABS: BASO # 0.1 10*3/uL (0.0-0.1); BASO % 0.9 % (0.0-1.0); EOS # 0.6 10*3/uL (0.0-0.4); EOS % 8.2 % (1.0-4.0); HEMATOCRIT 26.8 % (42.0-52.0); LYMPH % 14.5 % (27.0-41.0); MEAN CELL VOLUME 83.5 fl (80.0-94.0); MEAN CORPUSCULAR HGB 26.8 pg (27.0-31.0); MEAN CORPUSCULAR HGB CONC 32.1 g/dl (33.0-37.0); MONO # 0.8 10*3/uL (0.1-1.0); MONO % 11.5 % (3.0-9.0); NEUT # 4.3 10*3/uL (2.3-7.9); NEUT % 64.5 % (47.0-73.0); PLATELET COUNT AUTOMATED 351 10*3/uL (130-400); RED BLOOD COUNT 3.21 10*6/uL (4.50-5.90); RED CELL DISTRI WIDTH 16.8 % (0-14.5); WHITE BLOOD COUNT 6.7 10*3/uL (4.8-10.8)
[2022-10-07 08:00] VITALS: BP 139/69
[2022-10-07 12:00] VITALS: BP 150/60
[2022-10-07 16:00] VITALS: BP 124/74
[2022-10-07 20:00] VITALS: BP 144/51
[2022-10-08] VITALS: BP 140/50
[2022-10-08 08:00] VITALS: BP 138/81
[2022-10-08 12:00] VITALS: BP 151/70
== END 2022-10-08 17:49 | DRG 640 ==
LOC: ED 08:32 → 4E 11:34 → EDHOLD 11:34 → ICCU 11:34 → 4E 11:55 → ICCU 18:24 → 4E 10-05 14:14
PROVIDERS: Emergency Medicine; ADMIT Internal Medicine; ATTEND Internal Medicine
DX: E86.0 Dehydration (principal); G93.41 Metabolic encephalopathy; I50.33 Acute on chronic diastolic (congestive) heart failure; L89.624 Pressure ulcer of left heel, stage 4; N17.9 Acute kidney failure, unspecified; Z94.0 Kidney transplant status; D84.9 Immunodeficiency, unspecified; I13.0 Hypertensive heart and chronic kidney disease with heart failure and stage 1 through stage 4 chronic kidney disease, or unspecified chronic kidney disease; E87.1 Hypo-osmolality and hyponatremia; N32.0 Bladder-neck obstruction; R33.9 Retention of urine, unspecified; G89.29 Other chronic pain; J44.9 Chronic obstructive pulmonary disease, unspecified; N18.30 Chronic kidney disease, stage 3 unspecified; E10.22 Type 1 diabetes mellitus with diabetic chronic kidney disease; I25.10 Atherosclerotic heart disease of native coronary artery without angina pectoris; D64.9 Anemia, unspecified; E10.42 Type 1 diabetes mellitus with diabetic polyneuropathy; Z66 Do not resuscitate; E10.65 Type 1 diabetes mellitus with hyperglycemia; E10.51 Type 1 diabetes mellitus with diabetic peripheral angiopathy without gangrene; S30.0XXA Contusion of lower back and pelvis, initial encounter; X58.XXXA Exposure to other specified factors, initial encounter; Z98.890 Other specified postprocedural states; Z88.8 Allergy status to other drugs, medicaments and biological substances; Z95.5 Presence of coronary angioplasty implant and graft; Z87.891 Personal history of nicotine dependence; Z82.49 Family history of ischemic heart disease and other diseases of the circulatory system; Z80.42 Family history of malignant neoplasm of prostate; Y93.89 Activity, other specified; Y92.89 Other specified places as the place of occurrence of the external cause; Y99.8 Other external cause status

== ENCOUNTER → 2022-11-02 | Outpatient (CLI) | payer MEDICARE ==
[2022-11-02 13:58] LABS: BUN 24 mg/dl (9-23); CHLORIDE 99 mmol/L (98-107); POTASSIUM 4.6 mmol/L (3.4-5.1)
== END | disposition home or self-care (01) ==
LOC: LAB 12:55
PROVIDERS: ATTEND Internal Medicine
DX: Z94.0 Kidney transplant status (principal)

== ENCOUNTER 2022-12-23 01:39 | Inpatient (IN) | payer OTHER ==
[~2022-12-23] VITALS: Ht 177.8 cm; Wt 65.1 kg
[~2022-12-23 01:39] MED LIST changes: +'CLONIDINE0.1 MG PO; +HUMALOG100 UNIT/2 SC; +MULTIPLE VITAM1 EAC2 PO; +SEPTDS PO; +XANAX0.5 MG PO
[2022-12-23 01:48] VITALS: BP 151/70
[2022-12-23] MEDS ORDERED: ADMELOG SO100 UNIT/1 SQ (02:07)
[2022-12-23] MEDS ORDERED: SINGULAIR10 M1 PO (02:08)
[2022-12-23] MEDS ORDERED: PULMICORT0.25 MG/2 INH (02:13)
[2022-12-23] MEDS ORDERED: CALCIUM CARBON500 M3 PO (02:16)
[2022-12-23] MEDS ORDERED: CHOLECALCIFEROL1 GM MC (02:18)
[2022-12-23] MEDS ORDERED: ALBUTEROL S5 MG/1 ML INH (02:21)
[2022-12-23] MEDS ORDERED: ONDANSETRON4 MG SL (02:22)
[2022-12-23 05:00] VITALS: BP 121/56
[2022-12-23 08:00] VITALS: BP 143/58
[2022-12-23 16:00] VITALS: BP 179/57
[2022-12-23 20:00] VITALS: BP 127/45
[2022-12-24 08:00] VITALS: BP 119/44
[2022-12-24 12:00] VITALS: BP 118/37
== END 2022-12-24 16:25 | DRG 189 ==
LOC: ED 01:39 → 5E 01:55 → EDHOLD 01:55 → 5E 02:56
PROVIDERS: ADMIT Internal Medicine; ATTEND Internal Medicine
DX: J96.01 Acute respiratory failure with hypoxia (principal); I13.0 Hypertensive heart and chronic kidney disease with heart failure and stage 1 through stage 4 chronic kidney disease, or unspecified chronic kidney disease; J44.1 Chronic obstructive pulmonary disease with (acute) exacerbation; D84.9 Immunodeficiency, unspecified; J44.9 Chronic obstructive pulmonary disease, unspecified; I50.9 Heart failure, unspecified; N18.9 Chronic kidney disease, unspecified; Z66 Do not resuscitate; G89.29 Other chronic pain; E10.22 Type 1 diabetes mellitus with diabetic chronic kidney disease; E10.51 Type 1 diabetes mellitus with diabetic peripheral angiopathy without gangrene; I27.20 Pulmonary hypertension, unspecified; N18.30 Chronic kidney disease, stage 3 unspecified; M54.50 Low back pain, unspecified; K21.9 Gastro-esophageal reflux disease without esophagitis; M19.071 Primary osteoarthritis, right ankle and foot; E10.42 Type 1 diabetes mellitus with diabetic polyneuropathy; Z51.5 Encounter for palliative care; Z88.8 Allergy status to other drugs, medicaments and biological substances; Z87.891 Personal history of nicotine dependence; Z80.42 Family history of malignant neoplasm of prostate; Z82.49 Family history of ischemic heart disease and other diseases of the circulatory system